=== PATIENT | female | born 1950 | race Caucasian/White ===

== ENCOUNTER 2016-04-25 14:19 | Outpatient (CLI) | payer MEDICARE | END 2016-04-25 14:20 | disposition home or self-care (01) | DX: M16.11 Unilateral primary osteoarthritis, right hip (principal) ==

== ENCOUNTER 2016-04-30 13:39 | Outpatient (CLI) | payer MEDICARE | END 2016-04-30 13:40 | disposition home or self-care (01) | DX: R30.0 Dysuria (principal) ==

== ENCOUNTER 2016-05-29 14:52 | Outpatient (CLI) | payer MEDICARE | END 2016-05-29 14:53 | disposition home or self-care (01) | DX: R07.0 Pain in throat (principal); K11.7 Disturbances of salivary secretion ==

== ENCOUNTER → 2016-10-30 | Outpatient (CLI) | payer MEDICARE ==
[2016-11-02 08:16] LABS: TEST RESULT REPORT (())
[2016-11-28 12:01] LABS: TEST RESULT REPORT (())
== END ==
LOC: LAB.F 08:00
PROVIDERS: ATTEND Physician Assistant
DX: R05 Cough (principal)
CPT/HCPCS: 81599; 87070; 87205

== ENCOUNTER 2016-11-11 11:19 | Outpatient (CLI) | payer MEDICARE ==
--- NOTE | 2016-11-11 13:00 | XRAY Report ---
TWO-VIEW CHEST: 11/11/2016 CLINICAL INDICATION: Cough. FINDINGS: Frontal and lateral views of the chest demonstrate a normal cardiac silhouette. The lungs are hyperinflated, but clear. No effusion or pneumothorax is present. IMPRESSION: HYPERINFLATION. NO EVIDENCE OF ACUTE CARDIOPULMONARY DISEASE. JOB #: [id number] EXT JOB #:[id number]
== END 2016-11-11 11:20 | disposition home or self-care (01) ==
LOC: DI.S 11:19
PROVIDERS: ATTEND Physician Assistant
DX: R91.8 Other nonspecific abnormal finding of lung field (principal)
CPT/HCPCS: 71020

== ENCOUNTER 2016-11-20 11:57 | Outpatient (CLI) | payer MEDICARE | END 2016-11-20 11:58 | disposition home or self-care (01) | LOC: RT.S 11:57 | PROVIDERS: ATTEND Physician Assistant | DX: R07.89 Other chest pain (principal) | CPT/HCPCS: 93005 ==

== ENCOUNTER 2016-12-12 13:58 | Outpatient (CLI) | payer MEDICARE ==
--- NOTE | 2016-12-15 09:18 | XRAY Report ---
THREE-VIEW RIGHT SHOULDER: 12/12/2016 CLINICAL INDICATION: Palpable abnormality acromioclavicular joint, pain. FINDINGS: AP, oblique, scapular Y views of the right shoulder demonstrate mild degenerative changes of the glenohumeral and acromioclavicular joints. There is no evidence of fracture or dislocation. No radiopaque foreign body is seen in the soft tissues. IMPRESSION: MILD OSTEOARTHRITIS. NO EVIDENCE OF FRACTURE. JOB #: [id number] EXT JOB #:[id number]
--- NOTE | 2016-12-15 11:09 | XRAY Report ---
THREE-VIEW LEFT ELBOW: 12/12/2016 CLINICAL INDICATION: Pain. FINDINGS: AP, lateral, oblique views of the left elbow demonstrate no evidence of fracture or disloc ation. The joint spaces are preserved. No effusion is present. No foreign body is seen in the soft tissues. IMPRESSION: NORMAL LEFT ELBOW. JOB #: [id number] EXT JOB #:[id number]
== END 2016-12-12 13:59 | disposition home or self-care (01) ==
LOC: DI.S 13:58
PROVIDERS: ATTEND Physician Assistant
DX: M19.011 Primary osteoarthritis, right shoulder (principal); M25.529 Pain in unspecified elbow

== ENCOUNTER 2017-01-06 09:20 | Outpatient (CLI) | payer MEDICARE ==
[2017-01-06 17:55] LABS: BASOPHILS % (AUTO) 0.4 %; EOSINOPHILS # (AUTO) 0.1 10^3/uL (0.0-0.7); EOSINOPHILS % (AUTO) 1.7 %; HCT - HEMATOCRIT 40.7 % (37.0-47.0); HGB - HEMOGLOBIN 13.6 g/dL (12.0-16.0); LYMPHOCYTES # (AUTO) 1.6 10^3/uL (1.5-3.5); LYMPHOCYTES % (AUTO) 32.7 %; MEAN CORPUSCULAR HEMOGLOBIN 31.8 pg (27.0-31.0); MEAN CORPUSCULAR HGB CONC 33.4 g/dL (32.0-36.0); MEAN CORPUSCULAR VOLUME 95.3 fL (81.0-99.0); MEAN PLATELET VOLUME 9.4 fL (7.9-10.8); MONOCYTES # (AUTO) 0.4 10^3/uL (0.0-1.0); MONOCYTES % (AUTO) 8.4 %; NEUTROPHILS # (AUTO) 2.8 10^3/uL (1.5-6.6); NEUTROPHILS % (AUTO) 56.8 %; NUCLEATED RED BLOOD CELLS AUTO 0.1 /100WBC; RED BLOOD COUNT 4.27 10^6/uL (4.20-5.40); RED CELL DISTRIBUTION WIDTH 13.2 % (12.0-15.0)
[2017-01-06 18:53] LABS: ALBUMIN/GLOBULIN RATIO 1.8 (1.0-2.2); BILIRUBIN,TOTAL 1.2 mg/dL (0.2-1.0); BUN - BLOOD UREA NITROGEN 21 mg/dL (6-20); CALCIUM 9.4 mg/dL (8.5-10.3); CARBON DIOXIDE - CO2 28 mmol/L (21-32); CHLORIDE 104 mmol/L (101-111); CHOL/HDL RATIO 3.8 (<4.4); CHOLESTEROL 298 mg/dL; CREATININE 0.8 mg/dL (0.4-1.0); GFR - MDRD 72 (>89); GLUCOSE 108 mg/dL (70-100); HDL CHOLESTEROL 78 mg/dL; LDL/HDL RATIO 2.6 (<4.4); POTASSIUM 4.3 mmol/L (3.5-5.0); SODIUM 139 mmol/L (135-145); TRIGLYCERIDES 100 mg/dL; VLDL CHOLESTEROL 20 mg/dL
[2017-01-06 18:54] LABS: THYROID STIMULATING HORMONE 2.26 uIU/mL (0.34-5.60)
== END 2017-01-06 09:21 | disposition home or self-care (01) ==
LOC: LAB.F 09:20
PROVIDERS: ATTEND Physician Assistant
DX: Z00.00 Encounter for general adult medical examination without abnormal findings (principal); E78.5 Hyperlipidemia, unspecified
CPT/HCPCS: 36415; 80053; 80061; 84439; 84443; 85025

== ENCOUNTER 2017-03-26 10:03 | Outpatient (CLI) | payer MEDICARE ==
--- NOTE | 2017-03-27 09:35 | DEXA Report ---
DEXA SCAN: 03/26/2017 COMPARISON: DEXA scan 06/09/2014. In accordance with the International Society for Clinical Densitometry (ISCD) guidelines, data from previous exams may be reanalyzed using current recommendations and techniques. This is done to allow a more accurate basis for comparison with the current study. INDICATION: Bone mineral density screening. TECHNIQUE: Standard DEXA views of the left femur and left distal radius. Dual energy x-ray absorptiometry (DXA) was performed on a [employer] system. FINDINGS: Femoral neck bone mineral density measures 0.886 g/cm2, corresponding to a T-score of -1.1 and a Z-score of 0.5. WHO classification is osteopenia. This represents an interval increase in bone density of +2.2%. Distal one-third radius bone mineral density measures 0.720 g/cm2, which corresponds to a T-score -1.8 and Z-score -0.2. WHO classification osteopenia. There is no direct comparison for the distal radius. The data for the hip is as follows: REGION BMD (g/cm/cm) T-SCORE Z-SCORE Neck 0.886 -1.1 0.5 TOTAL 0.928 -0.6 0.7 NOTE: The femoral neck or total proximal femur, whichever is lowest, is used for classification. The data for the forearm is as follows: REGION BMD (g/cm/cm) T-SCORE Z-SCORE 1/3 0.720 -1.8 -0.2 NOTE: The 33% radius of the nondominant forearm is used for classification. IMPRESSION: THE WHO CLASSIFICATION BASED ON THE INTERNATIONAL REFERENCE STANDARD IS OSTEOPENIA. THE FRACTURE RISK IS INCREASED. RECOMMENDATION: Patients with diagnosis of osteoporosis or osteopenia should have regular bone mineral density assessment. For those eligible for Medicare, routine testing is allowed once every 2 years. Testing frequency can be increased for patients who have rapidly progressing disease or for those who are receiving medical therapy to restore bone mass. COMMENT: World Health Organization (WHO) definitions for osteoporosis and osteopenia: NORMAL BMD: T-score at 1.0 or higher, fracture risk is low. OSTEOPENIA BMD: T-score between 1.0 and -2.5, fracture risk is increased. OSTEOPOROSIS BMD: T-score at 2.5 or lower, fracture risk high. National Osteoporosis Foundation recommends: 1. Obtain adequate dietary calcium (at least 1200 mg per day) and vitamin D (400 -800 international units per day). 2. Participate, as appropriate, in regular weightbearing and muscle- strengthening exercise. 3. Avoid tobacco use and reduce alcohol and caffeine intake. 4. For more detailed information see the website at www.NOF.org. MTDD
== END 2017-03-26 10:04 | disposition home or self-care (01) ==
LOC: DI 10:03
PROVIDERS: ATTEND Physician Assistant
DX: M85.89 Other specified disorders of bone density and structure, multiple sites (principal)
CPT/HCPCS: 77080; 77081

== ENCOUNTER 2017-05-25 08:00 | Outpatient (CLI) | payer MEDICARE ==
[2017-05-25 17:38] LABS: BILIRUBIN,URINE NEGATIVE (NEGATIVE); GLUCOSE, URINE (UA) NEGATIVE (NEGATIVE); KETONES,URINE (UA) NEGATIVE (NEGATIVE); LEUKOCYTE ESTERASE, URINE SMALL (NEGATIVE); NITRITE,URINE NEGATIVE (NEGATIVE); OCCULT BLOOD,URINE TRACE-INTA (NEGATIVE); PROTEIN,URINE NEGATIVE (NEGATIVE); UROBILINOGEN,URINE 0.2 (NORMAL) E.U./dL (NORMAL)
[2017-05-25 17:43] LABS: CLARITY,URINE CLEAR (CLEAR)
[2017-05-25 17:44] LABS: BACTERIA,URINE Few /HPF (None Seen); RBC,URINE 0-5 /HPF (0-5); SQUAMOUS EPITHELIAL CELL,UR RARE Squamous (<= Few)
== END 2017-05-25 08:01 | disposition home or self-care (01) ==
LOC: LAB.F 08:00
PROVIDERS: ATTEND Physician Assistant
DX: N39.0 Urinary tract infection, site not specified (principal)
CPT/HCPCS: 81001; 81003; 87086

== ENCOUNTER 2017-07-24 11:05 | Outpatient (CLI) | payer MEDICARE ==
[2017-07-24 18:13] LABS: CALCIUM 9.1 mg/dL (8.5-10.3); CREATININE 0.8 mg/dL (0.4-1.0)
== END 2017-07-24 11:06 | disposition home or self-care (01) ==
LOC: LAB.F 11:05
PROVIDERS: ATTEND Physician Assistant
DX: G25.81 Restless legs syndrome (principal)
CPT/HCPCS: 36415; 80048

== ENCOUNTER 2017-08-13 15:55 | Outpatient (CLI) | payer MEDICARE ==
[2017-08-13 17:45] LABS: BILIRUBIN,URINE NEGATIVE (NEGATIVE); GLUCOSE, URINE (UA) NEGATIVE (NEGATIVE); KETONES,URINE (UA) TRACE mg/dL (NEGATIVE); LEUKOCYTE ESTERASE, URINE NEGATIVE (NEGATIVE); NITRITE,URINE NEGATIVE (NEGATIVE); OCCULT BLOOD,URINE NEGATIVE (NEGATIVE); PH,URINE 5.5 PH (5.0-7.5); PROTEIN,URINE NEGATIVE (NEGATIVE); UROBILINOGEN,URINE 0.2 (NORMAL) E.U./dL (NORMAL)
[2017-08-13 17:48] LABS: CLARITY,URINE CLEAR (CLEAR)
== END 2017-08-13 15:56 | disposition home or self-care (01) ==
LOC: LAB.F 15:55
PROVIDERS: ATTEND Physician Assistant
DX: R30.0 Dysuria (principal)
CPT/HCPCS: 81001; 81003; 87086

== ENCOUNTER 2018-01-04 08:00 | Outpatient (CLI) | payer MEDICARE | END 2018-01-04 08:01 | disposition home or self-care (01) | LOC: LAB.R 08:00 | PROVIDERS: ATTEND Physician Assistant | DX: R19.7 Diarrhea, unspecified (principal) | CPT/HCPCS: 81599; 83630; 87045; 87046 ==

== ENCOUNTER 2018-01-04 09:04 | Outpatient (CLI) | payer MEDICARE ==
[2018-01-04 17:56] LABS: BASOPHILS % (AUTO) 0.8 %; EOSINOPHILS # (AUTO) 0.1 10^3/uL (0.0-0.7); HGB - HEMOGLOBIN 13.9 g/dL (12.0-16.0); LYMPHOCYTES # (AUTO) 1.5 10^3/uL (1.5-3.5); LYMPHOCYTES % (AUTO) 28.1 %; MEAN CORPUSCULAR HEMOGLOBIN 32.7 pg (27.0-31.0); MEAN CORPUSCULAR VOLUME 96.1 fL (81.0-99.0); MEAN PLATELET VOLUME 9.6 fL (7.9-10.8); MONOCYTES # (AUTO) 0.3 10^3/uL (0.0-1.0); MONOCYTES % (AUTO) 6.3 %; NEUTROPHILS # (AUTO) 3.4 10^3/uL (1.5-6.6); NEUTROPHILS % (AUTO) 62.8 %; PLT - PLATELET COUNT 207 10^3/uL (130-450); RED BLOOD COUNT 4.26 10^6/uL (4.20-5.40); RED CELL DISTRIBUTION WIDTH 13.6 % (12.0-15.0); WHITE BLOOD COUNT 5.4 x10^3/uL (4.8-10.8)
[2018-01-04 18:23] LABS: ALBUMIN 4.3 g/dL (3.2-5.5); ALBUMIN/GLOBULIN RATIO 1.7 (1.0-2.2); BILIRUBIN,TOTAL 0.6 mg/dL (0.2-1.0); CALCIUM 9.3 mg/dL (8.5-10.3); CREATININE 0.7 mg/dL (0.4-1.0); TOTAL PROTEIN 6.8 g/dL (6.7-8.2)
== END 2018-01-04 09:05 | disposition home or self-care (01) ==
LOC: LAB.F 09:04
PROVIDERS: ATTEND Physician Assistant
DX: R19.7 Diarrhea, unspecified (principal)
CPT/HCPCS: 36415; 80053; 82150; 83690; 85025

== ENCOUNTER 2018-01-04 09:20 | Outpatient (CLI) | payer MEDICARE | END 2018-01-04 09:21 | disposition home or self-care (01) | LOC: LAB.R 09:20 | PROVIDERS: ATTEND Physician Assistant | DX: R19.7 Diarrhea, unspecified (principal) | CPT/HCPCS: 82270 ==

== ENCOUNTER 2018-01-04 11:51 | Outpatient (CLI) | payer MEDICARE ==
--- NOTE | 2018-01-04 12:58 | XRAY Report ---
Reason: COUGH Procedure Date: 01/04/2018 Accession Number: [id number] / [id number] Procedure: XR - Chest 2 View X-Ray CPT Code: 39481 FULL RESULT: EXAM: CHEST RADIOGRAPHY EXAM DATE: 01/04/2018 12:13 PM. CLINICAL HISTORY: COUGH. COMPARISON: CHEST 2 VIEW PA/LAT 11/11/2016 11:31 AM. TECHNIQUE: 2 views. FINDINGS: Lungs/Pleura: No focal opacities evident. No pleural effusion. No pneumothorax. Normal volumes. Mediastinum: Heart and mediastinal contours are unremarkable. Other: Neural stimulator in place. IMPRESSION: No acute findings 2-view chest radiography. Clear lungs. RADIA
== END 2018-01-04 11:52 | disposition home or self-care (01) ==
LOC: RT 11:51
PROVIDERS: ATTEND Physician Assistant
DX: R05 Cough (principal); R19.7 Diarrhea, unspecified
CPT/HCPCS: 36415; 71046; 80053; 81599; 82150; 82270; 83630; 83690; 85025; 87045; 87046; 87329; 93005

== ENCOUNTER 2018-01-07 11:28 | Emergency (ER) | payer MEDICARE ==
[2018-01-07] MEDS ORDERED: SODIUM CHLORIDE 0.9% 1,000 ML IV ONE (12:04)
[2018-01-07 12:53] LABS: BASOPHILS # (AUTO) 0.1 10^3/uL (0.0-0.1); BASOPHILS % (AUTO) 1.1 %; EOSINOPHILS # (AUTO) 0.1 10^3/uL (0.0-0.7); EOSINOPHILS % (AUTO) 0.8 %; HGB - HEMOGLOBIN 13.7 g/dL (12.0-16.0); LYMPHOCYTES # (AUTO) 1.6 10^3/uL (1.5-3.5); LYMPHOCYTES % (AUTO) 24.9 %; MEAN CORPUSCULAR HEMOGLOBIN 33.1 pg (27.0-31.0); MEAN CORPUSCULAR HGB CONC 34.8 g/dL (32.0-36.0); MEAN PLATELET VOLUME 8.9 fL (7.9-10.8); MONOCYTES # (AUTO) 0.5 10^3/uL (0.0-1.0); NEUTROPHILS # (AUTO) 4.3 10^3/uL (1.5-6.6); NEUTROPHILS % (AUTO) 66.2 %; PLT - PLATELET COUNT 202 10^3/uL (130-450); RED BLOOD COUNT 4.14 10^6/uL (4.20-5.40); WHITE BLOOD COUNT 6.5 x10^3/uL (4.8-10.8)
[2018-01-07 13:06] LABS: ALBUMIN 4.7 g/dL (3.2-5.5); ALBUMIN/GLOBULIN RATIO 1.9 (1.0-2.2); BILIRUBIN,TOTAL 1.1 mg/dL (0.2-1.0); CALCIUM 9.7 mg/dL (8.5-10.3); CREATININE 0.8 mg/dL (0.4-1.0); TOTAL PROTEIN 7.2 g/dL (6.7-8.2)
[2018-01-07 13:07] LABS: MAGNESIUM 1.9 mg/dL (1.7-2.8); PHOSPHORUS 3.3 mg/dL (2.5-4.6)
[2018-01-07] MEDS ORDERED: KETOROLAC 60 MG/2 ML VIAL IVP STA (13:17)
--- NOTE | 2018-01-07 13:19 | ED Physician Documentation ---
History of Present Illness - Stated complaint Stated Complaint: STIFF NECK/DIARRHEA - Chief complaint Chief Complaint: General - History obtained from History obtained from: Patient - History of Present Illness Timing: How many weeks ago (3) Pain level max: 9 Pain level now: 9 Improved by: rest Worsened by: movement - Additonal information Additional information: Patient is a 67-year-old female who presents to the emergency department with diarrhea for the past 3 weeks. Has seen her PCP, had a negative stool testing triggers, negative fecal leukocytes. Has no abdominal pain. No fevers. Was recently treated with azithromycin and doxycycline for bronchitis but the diarrhea was prior to this. She also has developed neck pain over this past several weeks. Worse with movement and better with rest. Has not taken anything for the pain. no recent travel Review of Systems Ten Systems: 10 systems reviewed and negative Constitutional: denies: Fever, Chills Throat: denies: Sore throat Cardiac: denies: Chest pain / pressure Respiratory: denies: Cough GI: reports: Nausea, Diarrhea (7-8x per day). denies: Abdominal Pain, Vomiting, Constipation, Hematemesis, Bloody / black stool : denies: Dysuria, Frequency, Hesitancy Skin: denies: Rash Musculoskeletal: reports: Neck pain. denies: Back pain Neurologic: denies: Focal weakness, Numbness, Confused, Altered mental status, Headache, Head injury, LOC PD PAST MEDICAL HISTORY - Past Medical History Past Medical History: Yes Musculoskeletal: Osteoarthritis, Chronic back pain, Other - Present Medications Home Medications: Ambulatory Orders Medication Instructions Recorded Confirmed Carisoprodol/Aspirin 1 tab PO Q8HR 11/23/13 08/13/15 [Carisoprodl-Aspirin 200-325 mg] Cyclobenzaprine [Flexeril] 10 mg PO DAILY PRN 11/23/13 08/13/15 Dextroamphetamine/Amphetamine 30 mg ORAL DAILY 11/23/13 08/13/15 [Dextroamp-Amphet ER 30 mg Cap] Hydrocodone/Acetaminophen [Vicodin 1 tab ORAL TID 11/23/13 08/13/15 5-300 mg Tablet] Sumatriptan Inj [Imitrex Inj] 100 mg ORAL BID PRN 11/23/13 08/13/15 Valacyclovir HCl [Valacyclovir] 500 mg ORAL DAILY 11/23/13 08/13/15 traMADol [Ultram] 50 mg ORAL BID PRN 11/23/13 08/13/15 traZODone [Desyrel] 50 mg OP QPM 11/23/13 08/13/15 Cyanocobalamin (Vitamin B-12) 1,000 mcg PO DAILY 03/24/14 08/13/15 [B-12] Mirtazapine 15 mg PO BIDAC 03/24/14 08/13/15 Multivits Min/Iron/FA/Herb#186 1 tab PO DAILY 03/24/14 08/13/15 [Hair, Skin & Nails Caplet] Papaya [Papaya Enzyme] 1 each PO DAILY 03/24/14 08/13/15 Vitamin B Complex 1 each PO DAILY 03/24/14 08/13/15 Carisoprodol [Soma] 1 mg ORAL DAILY 08/13/15 08/13/15 Methocarbamol [Robaxin] 500 mg PO Q6H PRN #20 tablet 01/07/18 - Allergies Allergies/Adverse Reactions: Allergies Allergy/AdvReac Type Severity Reaction Status Date / Time lovastatin Allergy Severe Palpitations/Dry Verified 01/07/18 11:36 mouth/ Confusion Sulfa (Sulfonamide Allergy Intermediate Rash/Hives Verified 01/07/18 11:36 Antibiotics) lamictal AdvReac Severe Rapid Uncoded 01/07/18 11:36 heart rate Percocet AdvReac Severe Migraines Uncoded 01/07/18 11:36 - Living Situation Living Situation: reports: With family Living Arrangement: reports: At home - Social History Does the pt have substance abuse?: No - Family History Family history: reports: Non contributory PD ED PE NORMAL - Vitals Vital signs reviewed: Yes - General General: Alert and oriented X 3, No acute distress - HEENT HEENT: PERRL, Moist mucous membranes - Neck Neck: No bony TTP, Other (paracervical spasm B) - Cardiac Cardiac: RRR, Strong equal pulses - Respiratory Respiratory: No respiratory distress, Clear bilaterally - Abdomen Abdomen: Soft, Non tender, Non distended - Derm Derm: Warm and dry - Extremities Extremities: No edema - Neuro Neuro: Alert and oriented X 3 - Psych Psych: Normal mood, Normal affect Results - Vitals Vitals: Vital Signs - 24 hr 01/07/18 01/07/18 11:33 13:15 Temperature 36.0 C L Heart Rate 74 76 Respiratory 16 16 Rate Blood Pressure 133/82 H 141/90 H O2 Saturation 97 Oxygen O2 Source Room air - Labs Labs: Laboratory Tests 01/07/18 01/07/18 01/07/18 12:40 12:40 12:40 WBC 6.5 RBC 4.14 L Hgb 13.7 Hct 39.3 MCV 95.0 MCH 33.1 H MCHC 34.8 RDW 13.0 Plt Count 202 MPV 8.9 Neut # (Auto) 4.3 Lymph # (Auto) 1.6 [place] # (Auto) 0.5 Eos # (Auto) 0.1 Baso # (Auto) 0.1 Absolute Nucleated RBC 0.00 Nucleated RBC % 0.0 Sodium 138 Potassium 3.6 Chloride 100 L Carbon Dioxide 28 Anion Gap 10.0 BUN 17 Creatinine 0.8 Estimated GFR (MDRD) 71 L Glucose 115 H Calcium 9.7 Phosphorus 3.3 Magnesium 1.9 Total Bilirubin 1.1 H AST 26 ALT 23 Alkaline Phosphatase 49 Total Protein 7.2 Albumin 4.7 Globulin 2.5 Albumin/Globulin Ratio 1.9 Lipase 29 Urine Color Urine Clarity Urine pH Ur Specific Archbold Urine Protein Urine Glucose (UA) Urine Ketones Urine Occult Blood Urine Nitrite Urine Bilirubin Urine Urobilinogen Ur Leukocyte Esterase Ur Microscopic Review Urine Culture Comments 01/07/18 14:07 WBC RBC Hgb Hct MCV MCH MCHC RDW Plt Count MPV Neut # (Auto) Lymph # (Auto) [place] # (Auto) Eos # (Auto) Baso # (Auto) Absolute Nucleated RBC Nucleated RBC % Sodium Potassium Chloride Carbon Dioxide Anion Gap BUN Creatinine Estimated GFR (MDRD) Glucose Calcium Phosphorus Magnesium Total Bilirubin AST ALT Alkaline Phosphatase Total Protein Albumin Globulin Albumin/Globulin Ratio Lipase Urine Color YELLOW Urine Clarity CLEAR Urine pH 6.5 Ur Specific [place]bold 1.015 Urine Protein NEGATIVE Urine Glucose (UA) NEGATIVE Urine Ketones TRACE Urine Occult Blood NEGATIVE Urine Nitrite NEGATIVE Urine Bilirubin NEGATIVE Urine Urobilinogen 0.2 (NORMAL) Ur Leukocyte Esterase NEGATIVE Ur Microscopic Review NOT INDICATED Urine Culture Comments NOT INDICATED PD MEDICAL DECISION MAKING - ED course Complexity details: reviewed results, re-evaluated patient, considered differential, d/w patient ED course: Patient is a 67-year-old female who presents with diarrhea for the past 3 weeks. Has had a full workup for this with her PCP with negative blood work, stool cultures and stool testing. Unclear etiology of this. She feels better after IV fluids. Will place on muscle relaxants for her neck. She has Vicodin for pain at home. No evidence of meningitis, encephalitis. No fevers. We will continue supportive care and follow-up with her doctor. Patient counseled regarding signs and symptoms for which I believe and urgent re-evaluation would be necessary. Patient with good understanding of and agreement to plan and is comfortable going home at this time This document was made in part using voice recognition software. While efforts are made to proofread this document, sound alike and grammatical errors may occur. Departure - Departure Disposition: Home, Self Care Clinical Impression: Diarrhea Qualifiers: Diarrhea type: unspecified type Qualified Code(s): R19.7 - Diarrhea, unspecified Neck muscle strain Qualifiers: Encounter type: initial encounter Qualified Code(s): S16.1XXA - Strain of muscle, fascia and tendon at neck level, initial encounter Condition: Good Instructions: ED Diet Vomiting Diarrhea, ED Neck Pain No Trauma Follow-Up: Nicky Best PA-C [Primary Care Provider] - Within 1 week Prescriptions: Methocarbamol [Robaxin] 500 mg PO Q6H PRN #20 tablet PRN Reason: neck spasm Comments: Your laboratory testing does not show any acute abnormalities. Your neck muscle spasm appears to be nontraumatic. Not related to meningitis or encephalitis. You do not have any evidence of hemorrhaging in your brain or neck. Follow-up with your doctor for further care. Do not drive or operate heavy machinery while taking the Robaxin Discharge Date/Time: 01/07/18 14:40
[2018-01-07 14:10] VITALS: BP 141/90
[2018-01-07 14:12] LABS: BILIRUBIN,URINE NEGATIVE (NEGATIVE); GLUCOSE, URINE (UA) NEGATIVE (NEGATIVE); KETONES,URINE (UA) TRACE mg/dL (NEGATIVE); LEUKOCYTE ESTERASE, URINE NEGATIVE (NEGATIVE); NITRITE,URINE NEGATIVE (NEGATIVE); OCCULT BLOOD,URINE NEGATIVE (NEGATIVE); PH,URINE 6.5 PH (5.0-7.5); PROTEIN,URINE NEGATIVE (NEGATIVE); UROBILINOGEN,URINE 0.2 (NORMAL) E.U./dL (NORMAL)
[2018-01-07 14:14] LABS: CLARITY,URINE CLEAR (CLEAR)
== END 2018-01-07 14:40 | disposition home or self-care (01) ==
LOC: ED 11:28
DX: R19.7 Diarrhea, unspecified (principal); S16.1XXA Strain of muscle, fascia and tendon at neck level, initial encounter; X58.XXXA Exposure to other specified factors, initial encounter; G89.29 Other chronic pain
CPT/HCPCS: 36415; 80053; 81001; 81003; 83690; 83735; 84100; 85025; 87086; 96374; 99283

== ENCOUNTER 2018-03-29 12:03 | Outpatient (CLI) | payer MEDICARE ==
[2018-03-29 19:03] LABS: BASOPHILS % (AUTO) 0.7 %; EOSINOPHILS # (AUTO) 0.1 10^3/uL (0.0-0.7); EOSINOPHILS % (AUTO) 1.1 %; HGB - HEMOGLOBIN 13.4 g/dL (12.0-16.0); LYMPHOCYTES # (AUTO) 1.5 10^3/uL (1.5-3.5); MEAN CORPUSCULAR HEMOGLOBIN 33.3 pg (27.0-31.0); MEAN CORPUSCULAR HGB CONC 33.9 g/dL (32.0-36.0); MEAN CORPUSCULAR VOLUME 98.3 fL (81.0-99.0); MEAN PLATELET VOLUME 9.5 fL (7.9-10.8); MONOCYTES # (AUTO) 0.4 10^3/uL (0.0-1.0); MONOCYTES % (AUTO) 7.8 %; NEUTROPHILS # (AUTO) 2.7 10^3/uL (1.5-6.6); NEUTROPHILS % (AUTO) 58.4 %; PLT - PLATELET COUNT 212 10^3/uL (130-450); RED BLOOD COUNT 4.03 10^6/uL (4.20-5.40); RED CELL DISTRIBUTION WIDTH 13.4 % (12.0-15.0); WHITE BLOOD COUNT 4.7 x10^3/uL (4.8-10.8)
[2018-03-29 19:04] LABS: ALBUMIN 4.4 g/dL (3.2-5.5); BILIRUBIN,TOTAL 0.5 mg/dL (0.2-1.0); CALCIUM 9.1 mg/dL (8.5-10.3); CREATININE 0.7 mg/dL (0.4-1.0); TOTAL PROTEIN 6.6 g/dL (6.7-8.2)
[2018-03-29 19:14] LABS: THYROID STIMULATING HORMONE 1.45 uIU/mL (0.34-5.60)
[2018-03-31 15:06] LABS: ANA SCREEN NEGATIVE (NEGATIVE)
== END 2018-03-29 12:04 | disposition home or self-care (01) ==
LOC: LAB.F 12:03
PROVIDERS: ATTEND Dermatology
DX: L65.9 Nonscarring hair loss, unspecified (principal)
CPT/HCPCS: 36415; 80053; 81599; 82627; 82728; 84403; 84443; 85025; 86038

== ENCOUNTER 2018-05-13 10:39 | Outpatient (CLI) | payer MEDICARE ==
--- NOTE | 2018-05-13 16:12 | XRAY Report ---
Reason: PAIN IN LEFT SHOULDER Procedure Date: 05/13/2018 Accession Number: [id number] / [id number] Procedure: XR - Shoulder 2 View LT CPT Code: FULL RESULT: EXAM: LEFT SHOULDER RADIOGRAPHY EXAM DATE: 05/13/2018 11:12 AM. CLINICAL HISTORY: Pain in left shoulder. COMPARISON: Arthrogram 07/23/2015 2:05 PM. Arthrogram shoulder left 07/23/2015 2:00 PM. TECHNIQUE: 2 views. FINDINGS: Bones: Mild changes about the inferior glenoid and lateral humeral head suggest prior injury. No fractures detected. Joints: The glenohumeral and acromioclavicular joints are normal. Soft tissues: The visualized hemithorax is unremarkable. No soft tissue swelling. IMPRESSION: Mild post-traumatic findings of lateral humeral head and inferior glenoid. Correlate to history of prior dislocation. RADIA
== END 2018-05-13 10:40 | disposition home or self-care (01) ==
LOC: DI 10:39
PROVIDERS: ATTEND Registered Nurse
DX: M25.512 Pain in left shoulder (principal)

== ENCOUNTER 2018-09-09 06:57 | Day surgery (SDC) | payer MEDICARE ==
[2018-09-09] MEDS ORDERED: LIDO GARGLE 30 ML BOTTLE ONE (07:14)
[2018-09-09] MEDS ORDERED: MIDAZOLAM 2 MG/2 ML VIAL IVP ONE (08:22)
[2018-09-09] MEDS ORDERED: fentaNYL 100 MCG/2 ML VIAL IVP ONE (08:22)
[2018-09-09] MEDS ORDERED: LACTATED RINGERS 1,000 ML IV ONE ×3 (08:22→08:48)
[2018-09-09] MEDS ORDERED: LIDO GARGLE 30 ML BOTTLE TOP ONE (08:30)
[2018-09-09 09:11] VITALS: BP 113/73
== END 2018-09-09 06:58 | disposition home or self-care (01) ==
LOC: SDS 06:57
PROVIDERS: ATTEND Surgery
PROC: 0DB78ZX Excision of Stomach, Pylorus, Via Natural or Artificial Opening Endoscopic, Diagnostic (ICD-10-PCS; 2018-09-09)
PROC: 0DB58ZX Excision of Esophagus, Via Natural or Artificial Opening Endoscopic, Diagnostic (ICD-10-PCS; principal; 2018-09-09 08:15)
DX: K22.70 Barrett's esophagus without dysplasia (principal); K21.0 Gastro-esophageal reflux disease with esophagitis; K29.80 Duodenitis without bleeding; K29.70 Gastritis, unspecified, without bleeding; Q38.6 Other congenital malformations of mouth; Z87.891 Personal history of nicotine dependence; Z86.2 Personal history of diseases of the blood and blood-forming organs and certain disorders involving the immune mechanism
CPT/HCPCS: 43239; 87081; A9270; J7120

== ENCOUNTER 2019-01-18 13:57 | Outpatient (CLI) | payer MEDICARE ==
--- NOTE | 2019-01-18 15:19 | Ultrasound Report ---
Reason: POSTMENOPAUSAL VAGINAL BLEEDING Procedure Date: 01/18/2019 Accession Number: [id number] / [id number] Procedure: US - Pelvic w/Transvaginal CPT Code: FULL RESULT: EXAM: PELVIC ULTRASOUND EXAM DATE: 01/18/2019 03:10 PM. CLINICAL HISTORY: POSTMENOPAUSAL VAGINAL BLEEDING. COMPARISON: PELVIC W/TRANSVAGINAL 01/18/2019 2:28 PM. TECHNIQUE: Realtime transabdominal pelvic scan performed to identify the uterus and adnexa and as an overview of other pelvic structures, followed by transvaginal scan to provide greater detail of the uterus and adnexa, with static image documentation. FINDINGS: Uterus: 6.5 x 2.8 x 4.2 cm, volume 40 cc. Anteverted position. Normal overall size and echotexture. Masses: 1. Fundal fibroid measuring 2.4 x 2.1 x 2.3 cm. Endometrium: 2.0 mm. Nonspecific small volume endometrial fluid. Cervix: Nabothian cyst is present. Ovaries are not seen bilaterally, may be obscured by overlying structures. No adnexal mass is seen. Free Fluid: None. Other: None. IMPRESSION: 1. Uterine fibroid. 2. Atrophic endometrium. 3. Nonspecific small volume endometrial fluid. 4. Ovaries are not seen, may be obscured. RADIA
== END 2019-01-18 13:58 | disposition home or self-care (01) ==
LOC: DI 13:57
PROVIDERS: ATTEND Physician Assistant Medical
DX: D25.9 Leiomyoma of uterus, unspecified (principal); N88.8 Other specified noninflammatory disorders of cervix uteri
CPT/HCPCS: 76830; 76856

== ENCOUNTER 2019-02-13 13:20 | Emergency (ER) | payer MEDICARE ==
[2019-02-13 13:29] VITALS: BP 153/74
--- NOTE | 2019-02-13 14:28 | XRAY Report ---
Reason: L knee pain/swelling. Procedure Date: 02/13/2019 Accession Number: [id number] / [id number] Procedure: XR - Knee 3 View LT CPT Code: Final Report FULL RESULT: EXAM: LEFT KNEE RADIOGRAPHY EXAM DATE: 02/13/2019 01:55 PM. CLINICAL HISTORY: L knee pain/swelling. COMPARISON: None. TECHNIQUE: 3 views. FINDINGS: Bones: No acute fracture or focal osseous destruction. Prior ACL reconstruction change noted. Hardware appears to be appropriate. Joints: No dislocation. Mild tricompartmental degenerative changes. Suprapatellar density. Soft Tissues: Mild apparent soft tissue swelling. IMPRESSION: 1. No acute fracture or dislocation identified. 2. Suprapatellar density, suggesting the presence of a knee joint effusion. 3. Mild tricompartmental degenerative changes. 4. Prior ACL surgical reconstruction changes noted. RADIA
[2019-02-13] MEDS ORDERED: HYDROcod/ACETAM 5/325 MG TABLET PO STA (14:30)
--- NOTE | 2019-02-13 14:34 | ED Physician Documentation ---
PD HPI LOWER EXT INJURY - Stated complaint Stated Complaint: L KNEE INJURY - Chief complaint Chief Complaint: Ext Problem - History obtained from History obtained from: Patient - History of Present Illness PD HPI LOW EXT INJURY LOCATION: Left (She has a remote history of ACL replacements. Yesterday morning she was walking on it and felt a pull in her left knee and has had persistent pain there ever since which is worse with walking. There was no fall. She tried ibuprofen with incomplete relief.) Review of Systems Constitutional: reports: Reviewed and negative Throat: reports: Reviewed and negative Cardiac: reports: Reviewed and negative PD PAST MEDICAL HISTORY - Past Medical History Cardiovascular: High cholesterol, Arrhythmia GI: GERD HEENT: Chronic vision loss Psych: ADD/ADHD, Claustrophobia Musculoskeletal: Osteoarthritis, Chronic back pain, Other Derm: Other - Past Surgical History Past Surgical History: Yes Ortho: ACL reconstruction, Arthroscopic surgery, Spine surgery /[employer]: Tubal ligation HEENT: Tonsil/Adenoidectomy - Present Medications Home Medications: Ambulatory Orders Medication Instructions Recorded Confirmed Carisoprodol/Aspirin 1 tab PO Q8HR 11/23/13 08/13/15 [Carisoprodl-Aspirin 200-325 mg] Cyclobenzaprine [Flexeril] 10 mg PO DAILY PRN 11/23/13 09/09/18 Sumatriptan Inj [Imitrex Inj] 100 mg ORAL BID PRN 11/23/13 09/09/18 Valacyclovir HCl [Valacyclovir] 500 mg ORAL DAILY 11/23/13 09/09/18 traZODone [Desyrel] 50 mg OP QPM 11/23/13 09/09/18 Cyanocobalamin (Vitamin B-12) 1,000 mcg PO DAILY 03/24/14 09/09/18 [B-12] Multivits Min/Iron/FA/Herb#186 1 tab PO DAILY 03/24/14 09/09/18 [Hair, Skin & Nails Caplet] Vitamin B Complex 1 each PO DAILY 03/24/14 09/09/18 Carisoprodol [Soma] 1 mg ORAL DAILY 08/13/15 08/13/15 Biosil 09/09/18 Dextroamphetamine/Amphetamine 30 mg PO DAILY 09/09/18 09/09/18 [Adderall 30 mg Tablet] Vit A/Vit C/Vit E/Zinc/Copper 1 each PO DAILY 09/09/18 09/09/18 [Preservision Areds Softgel] Hydrocodone/Acetaminophen 1 - 2 each PO Q6H PRN #14 tablet 02/13/19 [Hydrocodon-Acetaminophen 5-325] Meloxicam [Mobic] 7.5 mg PO BID PRN #20 tablet 02/13/19 - Allergies Allergies/Adverse Reactions: Allergies Allergy/AdvReac Type Severity Reaction Status Date / Time lovastatin Allergy Severe Palpitations/Dry Verified 01/07/18 11:36 mouth/ Confusion Sulfa (Sulfonamide Allergy Intermediate Rash/Hives Verified 01/07/18 11:36 Antibiotics) albuterol Allergy Unknown Verified 09/09/18 07:40 ciprofloxacin [From Cipro] Allergy Rash Verified 09/09/18 07:40 levofloxacin [From Levaquin] Allergy Rash Verified 09/09/18 07:40 prednisone Allergy Unknown Verified 09/09/18 07:40 acetaminophen [From Percocet] AdvReac Headache Verified 09/09/18 07:40 bupropion [From Wellbutrin] AdvReac Anxiety Verified 09/09/18 07:40 hydromorphone AdvReac Headache Verified 09/09/18 07:40 nitrofurantoin AdvReac Nausea Verified 09/09/18 07:40 oxycodone [From Percocet] AdvReac Headache Verified 09/09/18 07:40 lamictal AdvReac Severe Rapid Uncoded 01/07/18 11:36 heart rate Percocet AdvReac Severe Migraines Uncoded 01/07/18 11:36 - Social History Does the pt smoke?: No Smoking Status: Never smoker Does the pt drink ETOH?: No Does the pt have substance abuse?: No PD ED PE NORMAL - Vitals Vital signs reviewed: Yes - General General: Alert and oriented X 3, No acute distress - Extremities Extremities: Other (Left knee has a moderate effusion, the right knee has an effusion as well. There is mild medial and lateral joint line tenderness of the left knee. ACL, PCL, LCL, MCL testing is intact and painless. Negative grind testing.) - Neuro Neuro: Alert and oriented X 3, Normal speech Results - Vitals Vitals: Vital Signs - 24 hr 02/13/19 13:27 Temperature 36.9 C Heart Rate 85 Respiratory 18 Rate Blood Pressure 153/74 H O2 Saturation 100 Oxygen O2 Source Room air - Rads (name of study) L knee xr Radiology: EMP read contemporaneously (There is an effusion, mild tricompartmental degenerative changes and prior ACL surgery; No fracture) PD MEDICAL DECISION MAKING - ED course ED course: 68-year-old woman with history of ACL replacement presents after a knee twisting. Ligamentous and testing is intact. Negative grind testing. She does have a small effusion. She is treated with hydrocodone and anti-inflammatories pending orthopedic follow-up. Departure - Departure Disposition: 01 Home, Self Care Clinical Impression: Left knee sprain Qualifiers: Encounter type: initial encounter Involved ligament of knee: unspecified ligament Qualified Code(s): S83.92XA - Sprain of unspecified site of left knee, initial encounter Condition: Good Record reviewed to determine appropriate education?: Yes Instructions: ED Sprain Knee Follow-Up: Bhupendra Courtney MD [Provider Admit Priv/Credential] - Prescriptions: Hydrocodone/Acetaminophen [Hydrocodon-Acetaminophen 5-325] 1 - 2 each PO Q6H PRN #14 tablet PRN Reason: pain Meloxicam [Mobic] 7.5 mg PO BID PRN #20 tablet PRN Reason: Pain Comments: As discussed, the examination today shows some fluid on the knee joint and your ligaments seem okay. Right now I think is okay to take the hydrocodone and the anti-inflammatory. Its okay to walk and continue with physical therapy. Follow-up with the orthopedic surgeon next week if not better. Do not drink or drive while taking narcotic pain medication. Note that many narcotic pain relievers also contain Tylenol/acetaminophen. Please ensure that your total dose of acetaminophen from all sources does not exceed 3 g (3000 mg) per day. You may get constipated while on this medication. Take a stool softener such as Colace twice a day while you are on it. Also add an [id number] laxative such as senna or MiraLAX on any day that you do not have a bowel movement. If you received a narcotic pain medication or sedative while in the emergency department, do not drive for the next 24 hours. Your blood pressure was elevated today on check into the emergency department. This does not mean that you have hypertension, it is a common phenomenon to come to the emergency department and have elevated blood pressure. I recommend that you see your primary care physician within the week to have it rechecked when you are feeling better. Discharge Date/Time: 02/13/19 14:39
== END 2019-02-13 14:39 | disposition home or self-care (01) ==
LOC: ED 13:20
DX: S83.92XA Sprain of unspecified site of left knee, initial encounter (principal); X50.1XXA Overexertion from prolonged static or awkward postures, initial encounter; Y93.K1 Activity, walking an animal; R03.0 Elevated blood-pressure reading, without diagnosis of hypertension
CPT/HCPCS: 73562; 99283; A9270

== ENCOUNTER 2019-04-11 07:00 | Outpatient (CLI) | payer MEDICARE | END 2019-04-11 23:59 | disposition home or self-care (01) | LOC: LAB.R 07:00 | PROVIDERS: ATTEND Physician Assistant Medical | DX: N39.0 Urinary tract infection, site not specified (principal) | CPT/HCPCS: 87086 ==

== ENCOUNTER 2019-04-19 12:55 | Outpatient (CLI) | payer MEDICARE ==
[2019-04-19 17:20] LABS: BASOPHILS % (AUTO) 0.7 %; EOSINOPHILS # (AUTO) 0.1 10^3/uL (0.0-0.7); EOSINOPHILS % (AUTO) 1.4 %; HGB - HEMOGLOBIN 13.2 g/dL (12.0-16.0); LYMPHOCYTES # (AUTO) 1.5 10^3/uL (1.5-3.5); LYMPHOCYTES % (AUTO) 26.1 %; MEAN CORPUSCULAR HEMOGLOBIN 31.4 pg (27.0-31.0); MEAN CORPUSCULAR HGB CONC 32.8 g/dL (32.0-36.0); MEAN CORPUSCULAR VOLUME 95.5 fL (81.0-99.0); MEAN PLATELET VOLUME 11.6 fL (7.9-10.8); MONOCYTES # (AUTO) 0.5 10^3/uL (0.0-1.0); MONOCYTES % (AUTO) 8.8 %; NEUTROPHILS # (AUTO) 3.5 10^3/uL (1.5-6.6); NEUTROPHILS % (AUTO) 62.8 %; PLT - PLATELET COUNT 193 10^3/uL (130-450); RED BLOOD COUNT 4.21 10^6/uL (4.20-5.40); RED CELL DISTRIBUTION WIDTH 12.9 % (12.0-15.0); WHITE BLOOD COUNT 5.6 x10^3/uL (4.8-10.8)
[2019-04-19 17:36] LABS: ALBUMIN 4.8 g/dL (3.2-5.5); CALCIUM 9.1 mg/dL (8.5-10.3); CREATININE 0.7 mg/dL (0.4-1.0); TOTAL PROTEIN 7.2 g/dL (6.7-8.2)
== END 2019-04-19 12:56 | disposition home or self-care (01) ==
LOC: LAB.S 12:55
PROVIDERS: ATTEND Physician Assistant Medical
DX: Z51.81 Encounter for therapeutic drug level monitoring (principal); Z79.899 Other long term (current) drug therapy; R53.83 Other fatigue; L65.9 Nonscarring hair loss, unspecified; R00.2 Palpitations; Z83.49 Family history of other endocrine, nutritional and metabolic diseases
CPT/HCPCS: 36415; 80053; 84443; 85025

== ENCOUNTER 2019-06-03 08:00 | Outpatient (CLI) | payer MEDICARE | END 2019-06-03 23:59 | disposition home or self-care (01) | LOC: LAB.R 08:00 | PROVIDERS: ATTEND Family Medicine | DX: J11.1 Influenza due to unidentified influenza virus with other respiratory manifestations (principal) | CPT/HCPCS: 81599; U0002 ==

== ENCOUNTER 2019-11-24 11:27 | Day surgery (SDC) | payer MEDICARE ==
[2019-11-24] MEDS ORDERED: LACTATED RINGERS 1,000 ML IV ONE ×2 (12:03→13:02)
[2019-11-24] MEDS ORDERED: LIDO GARGLE 30 ML BOTTLE PO ONE ×2 (12:29→12:43)
[2019-11-24] MEDS ORDERED: BENZOCAINE/TETRACAINE/BUTAMBEN 20 GM TOP ONE ×2 (12:30→12:43)
[2019-11-24] MEDS ORDERED: MIDAZOLAM 2 MG/2 ML VIAL IVP ONE (12:37)
[2019-11-24] MEDS ORDERED: fentaNYL 250 MCG/5 ML VIAL IVP ONE (12:37)
[2019-11-24] MEDS ORDERED: LIDO GARGLE 30 ML BOTTLE ONE (12:48)
[2019-11-24 13:24] VITALS: BP 103/68
== END 2019-11-24 11:28 | disposition home or self-care (01) ==
LOC: SDS 11:27
PROVIDERS: ATTEND Surgery
PROC: 0DB48ZX Excision of Esophagogastric Junction, Via Natural or Artificial Opening Endoscopic, Diagnostic (ICD-10-PCS; principal; 2019-11-24 12:30)
DX: K22.70 Barrett's esophagus without dysplasia (principal); K29.50 Unspecified chronic gastritis without bleeding; K21.9 Gastro-esophageal reflux disease without esophagitis; D64.9 Anemia, unspecified; I49.9 Cardiac arrhythmia, unspecified; G58.8 Other specified mononeuropathies; E78.5 Hyperlipidemia, unspecified; F40.240 Claustrophobia; K13.79 Other lesions of oral mucosa; F98.8 Other specified behavioral and emotional disorders with onset usually occurring in childhood and adolescence; F32.9 Major depressive disorder, single episode, unspecified; F41.9 Anxiety disorder, unspecified; Z87.891 Personal history of nicotine dependence
CPT/HCPCS: 43239; A9270; J3010; J7120

== ENCOUNTER 2020-03-12 09:00 | Outpatient (CLI) | payer MEDICARE | END 2020-03-12 23:59 | disposition home or self-care (01) | LOC: LAB.R 09:00 | PROVIDERS: ATTEND Physician Assistant | DX: R30.0 Dysuria (principal) | CPT/HCPCS: 87077; 87086 ==

== ENCOUNTER 2020-04-05 13:45 | Outpatient (CLI) | payer MEDICARE ==
--- NOTE | 2020-04-05 16:35 | XRAY Report ---
PROCEDURE: Knee 3 View RT INDICATIONS: PAIN IN RT KNEE, LOW BACK PAIN TECHNIQUE: 3 views of the right knee(s) were acquired. COMPARISON: None. FINDINGS: Bones: No fractures or dislocations. No suspicious bony lesions. ACL surgical repair changes are no christiano. Moderate medial compartment narrowing is present as well as patellofemoral. Patellar osteophyte is present. Soft tissues: No joint effusion. No suspicious soft tissue calcifications. IMPRESSION: Postsurgical changes as well as degenerative medial and patellofemoral compartment arthr itic narrowing. Reviewed by: Krystyna Robin MD on 04/05/2020 4:34 PM PST Approved by: Krystyna Robin MD on 04/05/2020 4:34 PM PST Station ID: [id number]
--- NOTE | 2020-04-05 16:38 | XRAY Report ---
PROCEDURE: Lumbar Spine 2 View INDICATIONS: LOW BACK PAIN TECHNIQUE: 2 views of the lumbar spine were acquired. COMPARISON: X-ray lumbar spine 08/07/2015 FINDINGS: Bones: 5 [id number] vertebrae are present. There is posterior fusion at L4-5. Hardware appears intact without evidence of hardware fracture or periprosthetic loosening lucency. Stimulator is pres ent with wire overlying the posterior aspect of L3-4. There is lumbarization of the first sacral vert ebral body. Moderate to severe foraminal narrowing is noted L3-4, L4-5 and severe L5-S1. No vertebra l body compression fractures. No suspicious bony lesions. Soft tissues: Overlying bowel gas pattern is normal. No suspicious soft tissue calcifications. IMPRESSION: Degenerative postsurgical changes as above. It is noted foraminal narrowing appears slig htly more prominent when compared to prior exam. Reviewed by: Krystyna Robin MD on 04/05/2020 4:36 PM PST Approved by: Krystyna Robin MD on 04/05/2020 4:36 PM PST Station ID: [id number]
== END 2020-04-05 13:46 | disposition home or self-care (01) ==
LOC: DI 13:45
PROVIDERS: ATTEND Physician Assistant
DX: M17.11 Unilateral primary osteoarthritis, right knee (principal); M48.061 Spinal stenosis, lumbar region without neurogenic claudication; Z98.1 Arthrodesis status

== ENCOUNTER 2020-04-06 13:33 | Outpatient (CLI) | payer MEDICARE ==
--- NOTE | 2020-04-06 15:56 | Ultrasound Report ---
PROCEDURE: Duplex Ext Veins Right INDICATIONS: PAIN IN RT KNEE TECHNIQUE: Real-time imaging, as well as color and pulse Doppler interrogation, were performed of the lower extr emity deep veins from the inguinal ligament to the popliteal fossa. COMPARISON: None. FINDINGS: The deep veins are normally compressible, and free of intraluminal thrombus. Color and pu lse Doppler demonstrate normal phasic intraluminal flow. There is normal augmentation response to di stal compression maneuver. Small medial right knee fluid collection measuring 12 x 5 x 10 mm, which i s nonspecific. IMPRESSION: No evidence of deep venous thrombosis. Nonspecific small medial right knee fluid collection. Please correlate clinically Reviewed by: Leif Bailey MD on 04/06/2020 3:54 PM PST Approved by: Leif Bailey MD on 04/06/2020 3:54 PM PST Station ID: [id number]
== END 2020-04-06 13:34 | disposition home or self-care (01) ==
LOC: DI 13:33
PROVIDERS: ATTEND Physician Assistant
DX: M25.561 Pain in right knee (principal); M54.5 Low back pain

== ENCOUNTER 2021-04-10 10:33 | Outpatient (CLI) | payer MEDICARE ==
--- NOTE | 2021-04-10 15:07 | DEXA Report ---
PROCEDURE: Dexa Spine and/or Hip INDICATIONS: POST MENOPAUSAL TECHNIQUE: Dual energy x-ray absorptiometry (DXA) was performed on a [employer] System. Regions measur ed are the AP Spine, femoral neck, and if needed forearm. COMPARISON: 03/26/2017 FINDINGS: Left Hip: Bone Mineral Density 0.925 g/cm/cm,T score -0.7, normal bone density Left Femoral Neck: Bone Mineral Density 0.882 g/cm/cm, T score -1.1, osteopenia Left forearm (distal radius): The left forearm was used for measurement secondary to lumbar spinal garza rdware and pain stimulator device. Bone Mineral Density 0.562 g/cm/cm, T score -1.9, osteopenia (T score greater or equal to -1.0: NORMAL) (T score from -1.1 to -2.4: OSTEOPENIA) (T score less than or equal to -2.5 to: OSTEOPOROSIS) Impression: OSTEOPENIA. Patient is at increased risk for fracture Patients with diagnosis of osteoporosis or osteopenia should have regular bone mineral density assess ment. For those eligible for Medicare, routine testing is allowed once every 2 years. Testing frequ ency can be increased for patients who have rapidly progressing disease or for those who are receivin g medical therapy to restore bone mass. Reviewed by: Marco Antonio Vazquez MD on 04/10/2021 3:06 PM PST Approved by: Marco Antonio Vazquez MD on 04/10/2021 3:06 PM PST Station ID: [id number]
== END 2021-04-10 10:34 | disposition home or self-care (01) ==
LOC: DI 10:33
PROVIDERS: ATTEND Physician Assistant
DX: M85.89 Other specified disorders of bone density and structure, multiple sites (principal); Z78.0 Asymptomatic menopausal state

== ENCOUNTER 2022-06-11 12:50 | Outpatient (CLI) | payer MEDICARE ==
[~2022-06-11 12:50] MED LIST: GADOBUTROL 7.5 MMOL/7.5 ML VIAL ONE
[2022-06-11 13:17] LABS: CREATININE 0.8 mg/dL (0.4-1.0)
== END 2022-06-11 12:51 | disposition home or self-care (01) ==
LOC: LAB 12:50
PROVIDERS: ATTEND Physician Assistant
DX: M48.061 Spinal stenosis, lumbar region without neurogenic claudication (principal)
CPT/HCPCS: 36415; 82565

== ENCOUNTER 2022-06-28 14:02 | Emergency (ER) | payer MEDICARE ==
[2022-06-28 14:18] VITALS: BP 124/78
[2022-06-28] MEDS ORDERED: SODIUM CHLORIDE 0.9% 1,000 ML IV STA (14:27)
--- NOTE | 2022-06-28 14:30 | ED Physician Documentation ---
History of Present Illness - Stated complaint Stated Complaint: C+ N/D - Chief complaint Chief Complaint: Abd Pain - Additonal information Additional information: 72-year-old female presents to the emergency department for evaluation of abdo faith pain and diarrhea. States that about 6 days ago she began having some loose stools but over the last 4 days has had nothing but watery stools. Anytime she eats it runs right through her. She denies fevers. None of the output is bloody. She has had some nausea but no vomiting. She did test herself at home 2 days ago and was found to be positive for COVID-19. Denies any recent travel. Is not taking any antibiotics. No similar illness at home. She appears remarkably well in the room. Review of Systems Constitutional: denies: Fever, Chills Nose: reports: Reviewed and negative Throat: reports: Reviewed and negative Cardiac: reports: Reviewed and negative Respiratory: reports: Reviewed and negative GI: reports: Diarrhea. 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, Other HEENT: Tonsil/Adenoidectomy - Present Medications Home Medications: Ambulatory Orders Medication Instructions Recorded Confirmed Carisoprodol/Aspirin 1 tab PO Q8HR 11/23/13 08/13/15 [Carisoprodl-Aspirin 200-325 mg] Cyclobenzaprine [Flexeril] 10 mg PO DAILY PRN 11/23/13 11/23/19 Sumatriptan Inj [Imitrex Inj] 100 mg ORAL BID PRN 11/23/13 11/23/19 Valacyclovir HCl [Valacyclovir] 500 mg ORAL DAILY 11/23/13 09/09/18 traZODone [Desyrel] 50 mg OP QPM 11/23/13 09/09/18 Cyanocobalamin (Vitamin B-12) 1,000 mcg PO DAILY 03/24/14 11/23/19 [B-12] Vitamin B Complex 1 each PO DAILY 03/24/14 09/09/18 carisoprodoL [Soma] 1 mg ORAL DAILY 08/13/15 08/13/15 Biosil 09/09/18 Dextroamphetamine/Amphetamine 30 mg PO DAILY 09/09/18 09/09/18 [Adderall 30 mg Tablet] Hydrocodone/Acetaminophen 1 - 2 each PO Q6H PRN #14 tablet 02/13/19 [Hydrocodon-Acetaminophen 5-325] Meloxicam [Mobic] 7.5 mg PO BID PRN #20 tablet 02/13/19 - Allergies Allergies/Adverse Reactions: Allergies Allergy/AdvReac Type Severity Reaction Status Date / Time lovastatin Allergy Severe Palpitations/Dry Verified 06/28/22 14:18 mouth/ Confusion Sulfa (Sulfonamide Allergy Intermediate Rash/Hives Verified 06/28/22 14:18 Antibiotics) albuterol Allergy Unknown Verified 06/28/22 14:18 ciprofloxacin [From Cipro] Allergy Rash Verified 06/28/22 14:18 levofloxacin [From Levaquin] Allergy Rash Verified 06/28/22 14:18 prednisone Allergy Unknown Verified 06/28/22 14:18 acetaminophen [From Percocet] AdvReac Headache Verified 06/28/22 14:18 bupropion [From Wellbutrin] AdvReac Anxiety Verified 06/28/22 14:18 hydromorphone AdvReac Headache Verified 06/28/22 14:18 nitrofurantoin AdvReac Nausea Verified 06/28/22 14:18 oxycodone [From Percocet] AdvReac Headache Verified 06/28/22 14:18 lamictal AdvReac Severe Rapid Uncoded 06/28/22 14:18 heart rate Percocet AdvReac Severe Migraines Uncoded 06/28/22 14:18 - Social History Does the pt smoke?: No Smoking Status: Never smoker Does the pt drink ETOH?: No Does the pt have substance abuse?: No PD ED PE NORMAL - General General: Alert and oriented X 3, No acute distress - Neck Neck: Supple, no meningeal sign, No adenopathy - Cardiac Cardiac: RRR, No murmur - Respiratory Respiratory: No respiratory distress, Clear bilaterally - Abdomen Abdomen: Soft, Non tender (No tenderness elicited with light or deep palpation. No percussion tenderness). No: Normal bowel sounds (Hyperactive) - Derm Derm: Normal color, Warm and dry, No rash - Extremities Extremities: No deformity - Neuro Neuro: Alert and oriented X 3 Eye Opening: Spontaneous Motor: Obeys Commands Verbal: Oriented GCS Score: 15 Results - Vitals Vitals: Vital Signs - 24 hr 06/28/22 14:14 Temperature 36.2 C L Heart Rate 103 H Respiratory 20 Rate Blood Pressure 124/78 O2 Saturation 99 Oxygen O2 Source Room air - Labs Labs: Laboratory Tests 06/28/22 06/28/22 14:28 14:28 WBC 5.8 RBC 4.31 Hgb 13.8 Hct 41.0 MCV 95.1 MCH 32.0 H MCHC 33.7 RDW 13.3 Plt Count 208 MPV 10.7 Neut # (Auto) 4.2 Lymph # (Auto) 0.9 L [place] # (Auto) 0.7 Eos # (Auto) 0.0 Baso # (Auto) 0.0 Absolute Nucleated RBC 0.00 Nucleated RBC % 0.0 Sodium 136 Potassium 3.5 Chloride 100 L Carbon Dioxide 22 Anion Gap 14.0 H BUN 21 H Creatinine 1.0 Estimated GFR (MDRD) 54 L Glucose 100 Calcium 9.6 Total Bilirubin 0.8 AST 47 H ALT 49 Alkaline Phosphatase 71 Total Protein 7.1 Albumin 4.2 Globulin 2.9 Albumin/Globulin Ratio 1.4 Lipase 26 - Rads (name of study) CT abd Relevant Findings:: Final report received (Fluid extending throughout the colon consistent with a diarrheal type illness. Recommend clinical correlation. 1 cm nodular density along the gallbladder fundus may represent a focal adenomyomatosis versus liver lesion. Consider outpatient ultrasound.) PD Medical Decision Making - ED course Complexity details: reviewed results, re-evaluated patient, considered differential, d/w patient ED course: 72-year-old female presents emergency department for evaluation of 4 days watery diarrhea as well as a COVID-19 infection began 2 days ago. She is concerned she is getting dehydrated. Despite taking Imodium she continues to have diarrhea. No fevers. Nonbloody. Denies any recent antibiotics. I did attempt to get a stool for C. difficile testing but the patient was unable to provide a sample here in the ER. I obtained CBC and electrolytes and per my interpretation there are no acute worrisome findings. Specifically no leukocytosis or electrolyte derangement suggesting renal or liver impairment. Patient is without fever, hypotension or tachycardia. Her abdominal exam was benign. Patient was given a liter of fluid here in the ER and states that she is feeling better. I did offer Paxlovid for treatment of her COVID-19 but she declined that. As we are unable to obtain a C. difficile stool specimen I suspect that the diarrhea is going to begin to resolve. We discussed the usual conservative care measures as well as emergent return precautions at home. Departure - Departure Disposition: Home, Self Care Clinical Impression: COVID-19 virus infection, Gallbladder anomaly Condition: Stable Record reviewed to determine appropriate education?: Yes Comments: You came to the emergency department because you have had diarrhea for 4 days and tested positive for COVID 2 days ago. Here in the emergency department your CBC and electrolytes were all essentially normal. The CT scan of your belly showed that you have some fluid through your intestines consistent with diarrhea. You do have a nodule near the gallbladder that should be evaluated with an outpatient ultrasound to determine if it is a polyp or liver lesion. Please discuss this with your primary doctor. Important to stay well-hydrated. Drink lots of water fluid or Pedialyte. I would recommend that you start putting bulk in your stool with the diet. Start by eating bananas, rice, applesauce and toast. You can continue to take Imodium at home. Return to the ER if you find that the diarrhea is not getting better over the next few days, you have any fevers, black or bloody stools or any other emergent concerns.
[2022-06-28 14:34] LABS: BASOPHILS % (AUTO) 0.5 %; EOSINOPHILS % (AUTO) 0.3 %; HGB - HEMOGLOBIN 13.8 g/dL (12.0-16.0); LYMPHOCYTES # (AUTO) 0.9 10^3/uL (1.5-3.5); LYMPHOCYTES % (AUTO) 14.6 %; MEAN CORPUSCULAR HGB CONC 33.7 g/dL (32.0-36.0); MEAN CORPUSCULAR VOLUME 95.1 fL (81.0-99.0); MEAN PLATELET VOLUME 10.7 fL (7.9-10.8); MONOCYTES # (AUTO) 0.7 10^3/uL (0.0-1.0); MONOCYTES % (AUTO) 11.9 %; NEUTROPHILS # (AUTO) 4.2 10^3/uL (1.5-6.6); NEUTROPHILS % (AUTO) 72.5 %; PLT - PLATELET COUNT 208 10^3/uL (130-450); RED BLOOD COUNT 4.31 10^6/uL (4.20-5.40); RED CELL DISTRIBUTION WIDTH 13.3 % (12.0-15.0); WHITE BLOOD COUNT 5.8 x10^3/uL (4.8-10.8)
[2022-06-28 14:45] LABS: ALBUMIN 4.2 g/dL (3.2-5.5); ALBUMIN/GLOBULIN RATIO 1.4 (1.0-2.2); BILIRUBIN,TOTAL 0.8 mg/dL (0.2-1.0); CALCIUM 9.6 mg/dL (8.5-10.3); POTASSIUM 3.5 mmol/L (3.5-5.0); TOTAL PROTEIN 7.1 g/dL (6.7-8.2)
[2022-06-28] MEDS ORDERED: iohexoL-300 100 ML VIAL ONE (15:20)
[2022-06-28] MEDS ORDERED: iohexoL-300 100 ML VIAL IVP ONE (15:48)
--- NOTE | 2022-06-28 16:10 | CT Report ---
PROCEDURE: ABDOMEN/PELVIS W INDICATIONS: diarrhea, abd pain CONTRAST: 100ml omni 300 TECHNIQUE: After the administration of nonionic iodinated contrast, 5 mm thick sections acquired from the diaphr agms to the symphysis. 5 mm thick coronal and sagittal reformats were acquired. For radiation dose reduction, the following was used: automated exposure control, adjustment of mA and/or kV according to patient size. COMPARISON: None FINDINGS: Image quality: Excellent. Lung bases and heart: 4 mm nodularity of the right lung base likely represents focal dilation of the adjacent vessel and may represent a small vascular abnormality and may represent sequela of prior inf ection or trauma. No focal consolidation. Mild basilar atelectasis. Heart size is within normal limit s. Mild coronary vascular calcifications. Liver: Unremarkable. Gallbladder and biliary tree: There is a small nodule adjacent to the gallbladder fundus (series 3 im age 26) this measures 1 cm in greatest diameter. Spleen: Unremarkable. Pancreas: Unremarkable. Adrenals: Unremarkable. Kidneys and ureters: Unremarkable. Bowel and peritoneum: No evidence of obstruction. The stomach and small bowel are unremarkable. There is fluid noted extending throughout the colon. No wall thickening or surrounding inflammation. No as cites or pneumoperitoneum. Lymph nodes: No central or retroperitoneal adenopathy. Vessels: Vascular calcifications noted throughout the abdominal aorta and branch vessels. PELVIS Reproductive organs: Unremarkable. Bladder: Unremarkable. Lymph nodes: Unremarkable. Bones: Postsurgical changes of posterior fusion of L4-L5. Neurostimulator noted within the posterior soft tissues. Degenerative changes of the spine and hips. No acute osseous abnormality. No aggressive appearing osseous lesion. Other: Small fat-containing periumbilical hernia. IMPRESSION: Fluid extending throughout the colon consistent with a diarrheal-type illness. Recommend clinical cor relation. 1 cm nodular density along the gallbladder fundus may represent focal adenomyomatosis versus liver le tamie. Consider initial evaluation with outpatient ultrasound. Reviewed by: Oniel Chanel DO on 06/28/2022 3:08 PM LAURA Approved by: Oniel Chanel DO on 06/28/2022 3:08 PM LAURA Station ID: [id number]
== END 2022-06-28 16:36 | disposition home or self-care (01) ==
LOC: ED 14:02
DX: U07.1 COVID-19 (principal)
CPT/HCPCS: 36415; 74177; 80053; 83690; 85025; 99284; Q9967

== ENCOUNTER 2022-07-11 12:00 | Outpatient (CLI) | payer MEDICARE ==
--- NOTE | 2022-07-11 12:35 | XRAY Report ---
PROCEDURE: Lumbar Spine 2 View INDICATIONS: SPINAL STENOSIS TECHNIQUE: 2 views of the lumbar spine were acquired. COMPARISON: CT abdomen pelvis 06/28/2022. FINDINGS: Bones: 5 [id number] vertebrae are present. L4-L5 pedicle screw fixation. No hardware fracture. Small vertebral body osteophytes. There is normal bony alignment. No vertebral body compression fra ctures. No suspicious bony lesions. Soft tissues: Stimulator device within the posterior soft tissues at the L2 level. Leads projecting in the at the posterior elements, unchanged. Overlying bowel gas pattern is normal. No suspicious so ft tissue calcifications. IMPRESSION: Stable L4-L5 pedicle screw fixation and spine stimulator device. No compression fracture. Reviewed by: Michael Quesada MD on 07/11/2022 12:34 PM PDT Approved by: Michael Quesada MD on 07/11/2022 12:34 PM PDT Station ID: [id number]
[2022-07-11] MEDS ORDERED: GADOBUTROL 7.5 MMOL/7.5 ML VIAL IVP ONE (13:21)
--- NOTE | 2022-07-11 16:28 | MRI Report ---
PROCEDURE: LUMBAR SPINE W/WO INDICATIONS: SPINAL STENOSIS CONTRAST: GADAVIST 6.6 ML TECHNIQUE: Noncontrast sagittal T1 spin echo and T2 fast spin echo, sagittal STIR, axial T1 and T2 fast spin ech o through the lumbar spine. In cases with scoliosis, additional coronal T2 fast spin echo may be per formed. After the administration of contrast, sagittal and axial T1 spin echo with fat saturation th rough the lumbar spine. COMPARISON: CT abdomen and pelvis dated 06/28/2022, lumbar spine MRI dated 03/27/2014. FINDINGS: Image quality: Excellent. Alignment and curvature: There is normal bony alignment. Posterior decompression at L4-L5 and poste rior lateral pooja and pedicle screw fixation at that level. Marrow: Marrow is of normal overall signal. No acute vertebral body compression fractures. No susp icious marrow enhancement. Spinal cord: Conus medullaris terminates at the L1-L2 level. Visualized spinal cord demonstrates no rmal signal, without suspicious enhancement. Paraspinous soft tissues: No paravertebral masses or abnormal enhancement. T12-L1: Normal in appearance. L1-L2: Mild facet hypertrophy. No canal stenosis or foraminal stenosis. L2-L3: Disc bulge. Facet hypertrophy. Mild central canal stenosis and bilateral lateral recess namita nosis. Mild bilateral foraminal stenosis. L3-L4: Disc bulge. Facet hypertrophy. Mild to moderate canal stenosis. Mild bilateral foraminal [place]ita nosis. L4-L5: Fusion hardware. No canal stenosis or foraminal stenosis. L5-S1: Disc bulge. Facet hypertrophy. No canal stenosis or foraminal stenosis. IMPRESSION: 1. Remote posterior lateral fusion at L4-L5. 2. Expected appearance of surgical level. 3. Canal stenosis is mild at L2-L3 and mild to moderate at L3-L4. Reviewed by: Abbe Camara MD on 07/11/2022 4:26 PM PDT Approved by: Abbe Camara MD on 07/11/2022 4:26 PM PDT Station ID: [id number]
== END 2022-07-11 12:01 | disposition home or self-care (01) ==
LOC: DI 12:00
PROVIDERS: ATTEND Physician Assistant
DX: M47.816 Spondylosis without myelopathy or radiculopathy, lumbar region (principal); M51.36 Other intervertebral disc degeneration, lumbar region; M48.061 Spinal stenosis, lumbar region without neurogenic claudication; M51.37 Other intervertebral disc degeneration, lumbosacral region; M47.817 Spondylosis without myelopathy or radiculopathy, lumbosacral region; Z98.1 Arthrodesis status
CPT/HCPCS: 72100; 72158; A9585

== ENCOUNTER 2022-08-28 10:22 | Outpatient (CLI) | payer MEDICARE ==
--- NOTE | 2022-08-28 16:37 | Ultrasound Report ---
PROCEDURE: Abdomen Limited INDICATIONS: POLYP OF GALLBLADDER TECHNIQUE: Real-time focused scanning was performed of the abdomen, with image documentation. COMPARISONS: None. FINDINGS: Liver: Liver is normal in size and homogeneous in echotexture. Hepatic echotexture is diffusely inc reased Gallbladder: Unremarkable. Biliary ducts: Intrahepatic bile ducts are non-dilated. Extrahepatic bile duct caliber measures 6 m m. Normal is 6-7 mm or less in diameter, or 10 mm or less post-cholecystectomy. Pancreas: Visualized portions of the pancreas are sonographically normal. Right kidney: Normal in size and echotexture. Right kidney measures 12.0 cm long. No hydronephrosis or nephrolithiasis. No solid masses. No complex renal cystic lesions which require follow-up. Aorta: Visualized aorta is normal in caliber at less than 3 cm. IVC: Intrahepatic inferior vena cava is patent. Miscellaneous: No free abdominal fluid. IMPRESSION: Hepatic steatosis. No acute process. Reviewed by: Rusty Alexandre MD on 08/28/2022 4:35 PM PDT Approved by: Rusty Alexandre MD on 08/28/2022 4:35 PM PDT Station ID: [id number]
== END 2022-08-28 10:23 | disposition home or self-care (01) ==
LOC: DI 10:22
PROVIDERS: ATTEND Physician Assistant
DX: K76.0 Fatty (change of) liver, not elsewhere classified (principal)

== ENCOUNTER 2024-03-20 13:22 | Inpatient (IN) ==
--- NOTE | 2024-03-20 13:53 | ED Physician Documentation ---
History of Present Illness Stated complaint Stated Complaint: GEN WEAKNESS Chief complaint Chief Complaint: General History obtained from History obtained from: Patient and Family History of Present Illness Timing: How many weeks ago (2) Pain level max: 5 Pain level now: 5 Additonal information Additional information: Patient is a 73-year-old female who presents to the emergency department generalized weakness ongoing for the past several weeks. Was seen here about a week ago, diagnosed with anemia and atrial fibrillation paroxysmally. Started on metoprolol. She states since that time has become increasingly weak, unable to get out of bed. No fevers. No chills. Has had dark tarry stools for the past several weeks. She is not on blood thinners. 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 Not having any abdominal pain. She is scheduled to have a colonoscopy next month but states that she canceled this because she felt too weak. She states that she has tested positive for blood in the stool in the past. She states that she feels short of breath with any exertion. Has generalized body pain. No fevers. No cough. No nausea or vomiting. No abdominal pain. Review of Systems Constitutional Reports: Chills; Denies: Fever Eyes Denies: Pain Ears, nose, mouth, and throat Denies: Ear discharge Cardiovascular Denies: chest pain or palpitations Respiratory Denies: Cough Gastrointestinal Denies: Abdominal pain, Nausea, Vomiting, Camron blood emesis, Coffee grounds in vomit or Diarrhea Integumentary/Breast Denies: Rash Neurological Denies: Headache Meds/Allgy Home Medications Ambulatory Orders Medication Instructions Recorded Confirmed cyclobenzaprine 10 mg tablet 10 mg PO DAILY PRN Spasms 11/23/13 03/20/24 sumatriptan succinate 6 mg/0.5 mL 100 mg ORAL BID PRN Migraine 11/23/13 03/20/24 subcutaneous solution trazodone 50 mg tablet 100 mg PO QPM 11/23/13 03/20/24 valacyclovir 500 mg tablet 500 mg ORAL DAILY 11/23/13 03/20/24 cyanocobalamin (vitamin B-12) 1,000 mcg PO DAILY 03/24/14 03/20/24 1,000 mcg tablet vitamin B complex 1 cap PO DAILY 03/24/14 03/20/24 dextroamphetamine-amphetamine 30 30 mg PO DAILY 09/09/18 03/20/24 mg tablet (Adderall) hydrocodone 5 mg-acetaminophen 325 1 - 2 ea PO Q6H PRN pain #14 tabs 02/13/19 03/20/24 mg tablet carisoprodol 350 mg tablet 350 mg PO Q8HR 03/20/24 03/20/24 metoprolol tartrate 25 mg tablet 25 mg PO BID 03/20/24 03/20/24 Allergies Allergies Allergy/AdvReac Type Severity Reaction Status Date / Time lovastatin Allergy Severe Palpitations/Dry Verified 03/20/24 13:27 mouth/ Confusion Sulfa (Sulfonamide Allergy Intermediate Rash/Hives Verified 03/20/24 13:27 Antibiotics) albuterol Allergy Unknown Verified 03/20/24 13:27 ciprofloxacin (From Cipro) Allergy Rash Verified 03/20/24 13:27 levofloxacin (From Levaquin) Allergy Rash Verified 03/20/24 13:27 prednisone Allergy Unknown Verified 03/20/24 13:27 acetaminophen (From Percocet) AdvReac Headache Verified 03/20/24 13:27 bupropion (From Wellbutrin) AdvReac Anxiety Verified 03/20/24 13:27 hydromorphone AdvReac Headache Verified 03/20/24 13:27 nitrofurantoin AdvReac Nausea Verified 03/20/24 13:27 oxycodone (From Percocet) AdvReac Headache Verified 03/20/24 13:27 lamictal AdvReac Severe Rapid Uncoded 03/18/24 15:25 heart rate Percocet AdvReac Severe Migraines Uncoded 03/18/24 15:25 PFSH Medical History Medical History (Updated 03/20/24 @ 19:56 by Tony Bravo MD) Atrial fibrillation Anemia Surgical History Surgical History (Updated 03/20/24 @ 14:02 by Ghazala Fernandez RN) No pertinent past surgical history Social History Social History (Updated 03/20/24 @ 14:02 by Ghazala Fernandez RN) Smoking Status: Former smoker If you are a former smoker, when did you quit? (Date/Year): 2014 Number of Years Smoked: 28 How many cigarettes a day do you smoke? (20 cigarettes=1 Pk): 6 Second hand tobacco smoke exposure: No Do you dip or chew tobacco?: No Do you vape?: No Patient requests smoking cessation consult: No Initiate information on smoking cessation: No Living arrangement: At home Living Condition: With family Relationship: Level: Independent Do you feel safe in your home environment?: Yes Suffered physical, verbal, emotional, or financial abuse?: No History of Abuse: No Substance Use: former substance user Substance Use Details: Marijuana Exam Constitutional pale appearing HENMT oropharynx normal moist mucous membranes Eyes PERRL Neck/C-Spine visual inspection normal Respiratory breath sounds equal bilaterally, normal respiratory effort and clear to auscultation bilaterally Cardiovascular normal heart rate noted and regular rhythm noted Gastrointestinal abdomen normal to inspection, abdomen soft to palpation, nontender to palpation and nondistended Genitourinary no CVA tenderness Extremities no deformity no edema Neurology speech normal Psychiatry mental status grossly normal and oriented x3 Skin skin color normal Results Vitals Vitals: Vital Signs - 24 hr 03/20/24 13:27 03/20/24 14:02 03/20/24 14:30 Temperature 36.8 C Temperature Source Tympanic Pulse Rate 80 87 91 Respiratory Rate 16 20 16 Blood Pressure 95/50 L 114/54 L 127/57 L O2 Saturation 94 92 98 O2 Source Room air Room air Pain Intensity 6 5 1 03/20/24 15:44 Temperature Temperature Source Pulse Rate 89 Respiratory Rate 18 Blood Pressure 126/65 O2 Saturation 99 O2 Source Room air Pain Intensity 1 Oxygen O2 Source Room air EKG (time done) 1341: EKG releavant findings:: EKG personally interpreted by author of this note. Relevant findings are: Rate: Other (89 bpm. Sinus rhythm. Occasional PVC. No ischemic changes. Normal axis. Normal UT interval. normal QRS) Labs Labs: Laboratory Tests 03/20/24 03/20/24 03/20/24 13:50 13:56 14:10 WBC 7.3 RBC 1.42 L Hgb 5.0 L* Hct 13.2 L* MCV 93.0 MCH 35.2 H MCHC 37.9 H RDW 16.0 H Plt Count Neut # (Auto) Not Reportable Lymph # (Auto) Not Reportable [place] # (Auto) Not Reportable Eos # (Auto) Not Reportable Baso # (Auto) Not Reportable Absolute Nucleated RBC Not Reportable Total Counted 100 Band Neuts % (Manual) 0 Abnorm Lymph % (Manual) 0 Nucleated RBC % Not Reportable Neutrophils # (Manual) 6.4 Lymphocytes # (Manual) 0.4 L Monocytes # (Manual) 0.4 Eosinophils # (Manual) 0.0 Basophils # (Manual) 0.0 Differential Comment MANUAL DIFFERENTIAL Platelet Estimate NORMAL (130-450,000) Platelet Morphology PLATELET CLUMPING RBC Morph Micro Appear NORMAL APPEARANCE PT 13.1 H INR 1.2 APTT 21.2 L Sodium 129 L Potassium 3.7 Chloride 96 L Carbon Dioxide 26 Anion Gap 7.0 BUN 19 Creatinine 1.0 Estimated GFR (MDRD) 54 L Glucose 148 H Calcium 9.9 Phosphorus 3.3 Magnesium 0.9 L* Total Bilirubin 1.4 H AST 14 ALT 9 L Alkaline Phosphatase 66 Total Protein 7.7 Albumin 3.9 Globulin 3.8 Albumin/Globulin Ratio 1.0 Lipase 27 Urine Color Urine Clarity Urine pH Ur Specific [place] Urine Protein Urine Glucose (UA) Urine Ketones Urine Occult Blood Urine Nitrite Urine Bilirubin Urine Urobilinogen Ur Leukocyte Esterase Ur Microscopic Review Urine Culture Comments Nasal Adenovirus (PCR) NOT DETECTED Nasal B. parapertussis DNA (PCR) NOT DETECTED Nasal Coronavir 229E PCR NOT DETECTED Nasal Coronavir HKU1 PCR NOT DETECTED Nasal Coronavir NL63 PCR NOT DETECTED Nasal Coronavir OC43 PCR NOT DETECTED Nasal Enterovir/Rhinovir PCR NOT DETECTED Nasal Influenza B PCR NOT DETECTED Nasal Influenza A PCR NOT DETECTED Nasal Parainfluen 1 PCR NOT DETECTED Nasal Parainfluen 2 PCR NOT DETECTED Nasal Parainfluen 3 PCR NOT DETECTED Nasal Parainfluen 4 PCR NOT DETECTED Nasal RSV (PCR) NOT DETECTED Nasal B.pertussis DNA PCR NOT DETECTED Nasal C.pneumoniae (PCR) NOT DETECTED Ankit Human Metapneumo PCR NOT DETECTED Nasal M.pneumoniae (PCR) NOT DETECTED Nasal SARS-CoV-2 (PCR) NOT DETECTED Antibody Screen FARTUN, IgG Specific FARTUN, Polyspecific FARTUN, C3d Specific Crossmatch 03/20/24 03/20/24 14:43 15:45 WBC RBC Hgb Hct MCV MCH MCHC RDW Plt Count Neut # (Auto) Lymph # (Auto) [place] # (Auto) Eos # (Auto) Baso # (Auto) Absolute Nucleated RBC Total Counted Band Neuts % (Manual) Abnorm Lymph % (Manual) Nucleated RBC % Neutrophils # (Manual) Lymphocytes # (Manual) Monocytes # (Manual) Eosinophils # (Manual) Basophils # (Manual) Differential Comment Platelet Estimate Platelet Morphology RBC Morph Micro Appear PT INR APTT Sodium Potassium Chloride Carbon Dioxide Anion Gap BUN Creatinine Estimated GFR (MDRD) Glucose Calcium Phosphorus Magnesium Total Bilirubin AST ALT Alkaline Phosphatase Total Protein Albumin Globulin Albumin/Globulin Ratio Lipase Urine Color DARK YELLOW Urine Clarity CLEAR Urine pH 6.5 Ur Specific [place] 1.015 Urine Protein NEGATIVE Urine Glucose (UA) NEGATIVE Urine Ketones NEGATIVE Urine Occult Blood NEGATIVE Urine Nitrite NEGATIVE Urine Bilirubin NEGATIVE Urine Urobilinogen 1 (NORMAL) Ur Leukocyte Esterase NEGATIVE Ur Microscopic Review NOT INDICATED Urine Culture Comments NOT INDICATED Nasal Adenovirus (PCR) Nasal B. parapertussis DNA (PCR) Nasal Coronavir 229E PCR Nasal Coronavir HKU1 PCR Nasal Coronavir NL63 PCR Nasal Coronavir OC43 PCR Nasal Enterovir/Rhinovir PCR Nasal Influenza B PCR Nasal Influenza A PCR Nasal Parainfluen 1 PCR Nasal Parainfluen 2 PCR Nasal Parainfluen 3 PCR Nasal Parainfluen 4 PCR Nasal RSV (PCR) Nasal B.pertussis DNA PCR Nasal C.pneumoniae (PCR) Ankit Human Metapneumo PCR Nasal M.pneumoniae (PCR) Nasal SARS-CoV-2 (PCR) Antibody Screen POSITIVE FARTUN, IgG Specific POSITIVE FARTUN, Polyspecific POSITIVE FARTUN, C3d Specific POSITIVE Crossmatch See Detail PD Medical Decision Making ED course Complexity details: reviewed results, considered differential and d/w patient ED course: Patient is a 73-year-old female who presents to the emergency department with increasing weakness. She has significant anemia, hgb 5, and hypomagnesemia. Gi arline IV magnesium. Given IV fluids and blood was ordered. Has significant antibodies in her blood that will require further testing prior to blood transfusion being given. She is hemodynamically stable with what appears to be likely a slow GI bleed. Discussed the case with Dr. Saucedo, general surgery who will consult. Patient had an EGD approximately 9 months ago that did not show any acute abnormalities. Given IV Protonix. Abdomen is soft, nontender nondistended. No indication for emergent CT scan. Discussed the case with the hospitalist who accepts. This document was made in part using voice recognition software. While efforts are made to proofread this document, sound alike and grammatical errors may occur. Discharge Plan Discharge Patient Disposition: [facility] DC/Xfer Condition: Stable Clinical Impression: Hypomagnesemia, Symptomatic anemia Anemia Qualifiers: Anemia type: unspecified type Qualified Code(s): D64.9 - Anemia, unspecified Interventions: ED Admission Assessment Last Done: 03/20/24 17:44
[2024-03-20 14:07] LABS: INR 1.2 (0.8-1.2); PT - PROTHROMBIN TIME 13.1 secs (9.9-12.6)
[2024-03-20 14:14] LABS: PARTIAL THROMBOPLASTIN TIME 21.2 secs (24.9-33.3)
--- NOTE | 2024-03-20 14:17 | XRAY Report ---
PROCEDURE: XR Chest 1V INDICATIONS: cough TECHNIQUE: One view of the chest was acquired. COMPARISON: 03/14/2024 FINDINGS: Surgical changes and devices: None. Lungs and pleura: No consolidation or pleural effusion Mediastinum: Cardiac mediastinal contours are unchanged. Heart size is within normal limits. Bones and chest wall: Degenerative changes. IMPRESSION: No acute radiographic abnormality on this single view study. Reviewed by: Geo Clarke MD on 03/20/2024 1:16 PM [facility] Approved by: Geo Clarke MD on 03/20/2024 1:16 PM [facility] Station ID: [id number]
[2024-03-20 14:21] LABS: ALBUMIN 3.9 g/dL (3.2-5.5); BILIRUBIN,TOTAL 1.4 mg/dL (0.2-1.0); CALCIUM 9.9 mg/dL (8.5-10.3); PHOSPHORUS 3.3 mg/dL (2.5-5.0); POTASSIUM 3.7 mmol/L (3.5-4.5); TOTAL PROTEIN 7.7 g/dL (6.4-8.9)
[2024-03-20 14:26] LABS: MAGNESIUM 0.9 mg/dL (1.7-2.3)
[2024-03-20] MEDS: PANTOPRAZOLE 40 MG VIAL IVP STA (14:46)
[2024-03-20] MEDS: MAGNESIUM SULFATE 2 GRAM 2 GM/50 ML BAG IV ONE (14:56)
[2024-03-20 15:06] LABS: B. PARAPERTUSSIS- RESP PCR PAN NOT DETECTED; B. PERTUSSIS- RESP PCR PANEL NOT DETECTED; C. PNEUMONIAE- RESP PCR PANEL NOT DETECTED; CORONAVIRUS 229E-RESP PCR NOT DETECTED; CORONAVIRUS HKU1-RESP PCR NOT DETECTED; CORONAVIRUS NL63-RESP PCR NOT DETECTED; CORONAVIRUS OC43-RESP PCR NOT DETECTED; HUMAN METAPNEUMOVIRUS NOT DETECTED; INFLUENZA A- RESP PCR PANEL NOT DETECTED; INFLUENZA B - RESP PCR PANEL NOT DETECTED; M. PNEUMONIAE- RESP PCR PANEL NOT DETECTED; PARAINFLUENZA VIRUS 1 NOT DETECTED; PARAINFLUENZA VIRUS 2 NOT DETECTED; PARAINFLUENZA VIRUS 4 NOT DETECTED; RHINOVIRUS/ENTEROVIRUS NOT DETECTED; RSV- RESP PCR PANEL NOT DETECTED; SARS-CoV-2 -RESP PCR PANEL NOT DETECTED
[2024-03-20 15:16] LABS: BASOPHILS % (AUTO) 0.8 %; EOSINOPHILS % (AUTO) 0.5 %; LYMPHOCYTES % (AUTO) 12.8 %; MEAN CORPUSCULAR HEMOGLOBIN 35.2 pg (27.0-31.0); MEAN CORPUSCULAR HGB CONC 37.9 g/dL (32.0-36.0); MONOCYTES % (AUTO) 11.3 %; RED BLOOD COUNT 1.42 10^6/uL (4.20-5.40); WHITE BLOOD COUNT 7.3 x10^3/uL (4.8-10.8)
[2024-03-20 15:22] LABS: HCT - HEMATOCRIT 13.2 % (37.0-47.0)
[2024-03-20 15:24] LABS: ABNORMAL LYMPHS % (MANUAL) 0 %; BAND NEUTROPHILS % (MANUAL) 0 %
[2024-03-20 15:30] LABS: LYMPHOCYTES # (MANUAL) 0.4 10^3/uL (1.5-3.5); LYMPHOCYTES % (MANUAL) 6 %; MONOCYTES # (MANUAL) 0.4 10^3/uL (0.0-1.0); NEUTROPHILS # (MANUAL) 6.4 10^3/uL (1.5-6.6)
[2024-03-20 15:31] LABS: DIFFERENTIAL COMMENT MANUAL DIFFERENTIAL; PLATELET ESTIMATE, MANUAL NORMAL (130-450,000) (NORMAL); PLATELET MORPHOLOGY PLATELET CLUMPING (NORMAL); RBC MORPHOLOGY (MULTIPLE) NORMAL APPEARANCE (NORMAL)
[2024-03-20 15:49] LABS: BILIRUBIN,URINE NEGATIVE (NEGATIVE); GLUCOSE, URINE (UA) NEGATIVE (NEGATIVE); KETONES,URINE (UA) NEGATIVE (NEGATIVE); LEUKOCYTE ESTERASE, URINE NEGATIVE (NEGATIVE); NITRITE,URINE NEGATIVE (NEGATIVE); OCCULT BLOOD,URINE NEGATIVE (NEGATIVE); PH,URINE 6.5 PH (5.0-7.5); PROTEIN,URINE NEGATIVE (NEGATIVE); UROBILINOGEN,URINE 1 (NORMAL) E.U./dL (NORMAL)
[2024-03-20 15:50] LABS: CLARITY,URINE CLEAR (CLEAR)
[2024-03-20] MEDS: ACETAMINOPHEN 325 MG TABLET PO STA (16:23)
--- NOTE | 2024-03-20 16:43 | HISTORY & PHYSICAL EXAMINATION ---
Chief Complaint Chief Complaint Chief Complaint: Weakness, any, dizziness, dark stools History of Present Illness History of Present Illness HPI Comment/Other: This is a 73-year-old female with a past medical hx of anemia, Gerd, on omeprazole, parox. afib, not on anticoagulation who presents to ER with a complaint of worsening weakness, black stools and constipation. Pt states that she has been getting weaker in the last 2 weeks, had constipation, although she denies narcotics for pain or change in diet. Pt feels that her chest is heavy but denies chest pain. Pt denies nausea or vomitting. Pt confirms rapid weight loss of 6 pounds within the last few weeks. Pt also states that she has worsening chronic pain in back and neck. Laboratory Values in the ED indicated hemoglobin of 5.0 and Magnesium of 0.9, Sodium of 129. Chest x-ray is negative for any cardiopulmonary pathology. Surgery was consulted for urgent EGD and colonoscopy. Patient has Cold agglutinin blood antibodies which requires matchedFrom outside this facility.4 units RBCs were ordered. 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 Patient was scheduled for a colonoscopy for 03/21/2024. Patient is full code. Meds/Allgy Home Medications Ambulatory Orders Medication Instructions Recorded Confirmed cyclobenzaprine 10 mg tablet 10 mg PO DAILY PRN Spasms 11/23/13 03/20/24 sumatriptan succinate 6 mg/0.5 mL 100 mg ORAL BID PRN Migraine 11/23/13 03/20/24 subcutaneous solution trazodone 50 mg tablet 100 mg PO QPM 11/23/13 03/20/24 valacyclovir 500 mg tablet 500 mg ORAL DAILY 11/23/13 03/20/24 cyanocobalamin (vitamin B-12) 1,000 mcg PO DAILY 03/24/14 03/20/24 1,000 mcg tablet vitamin B complex 1 cap PO DAILY 03/24/14 03/20/24 dextroamphetamine-amphetamine 30 30 mg PO DAILY 09/09/18 03/20/24 mg tablet (Adderall) hydrocodone 5 mg-acetaminophen 325 1 - 2 ea PO Q6H PRN pain #14 tabs 02/13/19 03/20/24 mg tablet carisoprodol 350 mg tablet 350 mg PO Q8HR 03/20/24 03/20/24 metoprolol tartrate 25 mg tablet 25 mg PO BID 03/20/24 03/20/24 Allergies Allergies Allergy/AdvReac Type Severity Reaction Status Date / Time lovastatin Allergy Severe Palpitations/Dry Verified 03/20/24 13:27 mouth/ Confusion Sulfa (Sulfonamide Allergy Intermediate Rash/Hives Verified 03/20/24 13:27 Antibiotics) albuterol Allergy Unknown Verified 03/20/24 13:27 ciprofloxacin (From Cipro) Allergy Rash Verified 03/20/24 13:27 levofloxacin (From Levaquin) Allergy Rash Verified 03/20/24 13:27 prednisone Allergy Unknown Verified 03/20/24 13:27 acetaminophen (From Percocet) AdvReac Headache Verified 03/20/24 13:27 bupropion (From Wellbutrin) AdvReac Anxiety Verified 03/20/24 13:27 hydromorphone AdvReac Headache Verified 03/20/24 13:27 nitrofurantoin AdvReac Nausea Verified 03/20/24 13:27 oxycodone (From Percocet) AdvReac Headache Verified 03/20/24 13:27 lamictal AdvReac Severe Rapid Uncoded 03/18/24 15:25 heart rate Percocet AdvReac Severe Migraines Uncoded 03/18/24 15:25 PFSH Medical History Medical History (Updated 03/20/24 @ 17:04 by Pat Cerrato DO) Atrial fibrillation Anemia Surgical History Surgical History (Updated 03/20/24 @ 14:02 by Ghazala Fernandez RN) No pertinent past surgical history Social History Social History (Updated 03/20/24 @ 14:02 by Ghazala Fernandez RN) Smoking Status: Never smoker If you are a former smoker, when did you quit? (Date/Year): 2013 How many cigarettes a day do you smoke? (20 cigarettes=1 Pk): 6 Do you dip or chew tobacco?: No Patient requests smoking cessation consult: No Living arrangement: At home Living Condition: With family Relationship: Do you feel safe in your home environment?: Yes Suffered physical, verbal, emotional, or financial abuse?: No History of Abuse: No POLST Patient has POLST: No Review of Systems Status of ROS: 10 or more systems reviewed and unremarkable except as noted in history and below Constitutional Denies: Fever Eyes Reports: Pain Cardiovascular Denies: chest pain or palpitations Respiratory Denies: Cough Gastrointestinal Denies: Abdominal pain, Nausea, Vomiting, Camron blood emesis, Coffee grounds in vomit or Diarrhea Integumentary/Breast Denies: Rash Neurological Denies: Headache Exam Constitutional normal general appearance and no apparent distress pale appearing HENMT normocephalic and head/scalp atraumatic moist mucous membranes Eyes PERRL and EOMs intact bilaterally Neck/C-Spine visual inspection normal and trachea midline Chest inspection of chest normal and palpation of chest normal Respiratory breath sounds equal bilaterally, normal respiratory effort and clear to auscultation bilaterally Cardiovascular normal heart rate noted and regular rhythm noted Gastrointestinal abdomen normal to inspection, abdomen soft to palpation, nontender to palpation and nondistended Extremities no deformity no edema Neurology speech normal Psychiatry mental status grossly normal and oriented x3 Skin skin color normal Conclusion/Plan Problem List (1) Blood loss anemia: Plan: Likely secondary to lower GI bleed. Transfuse 3 units RBCs, monitor H&H. (2) Weakness: Plan: Likely due to blood loss anemia. Reassess after transfusion. Consult PT OT evaluation. (3) Constipation: Plan: Bowel bowel prep to plan for colonoscopy on 03/22/24 (4) Hyponatremia: Plan: Transfuse with D5 NS (5) Hypomagnesemia: Plan: Replace electrolytes (6) GI bleed: Plan: Pediatric history of bradycardia esophagus and multiple EGDs in the past. Plan for EGD tomorrow and colonoscopy the day after. (7) Paroxysmal atrial fibrillation: Plan: Currently patient is in sinus rhythm Patient not on anticoagulation, Or HR control medication. Continue to monitor. Hold pharmaceutical anticoagulation at this time due to GI bleed Lab Results Lab results reviewed: Yes 03/20/24 14:10 03/20/24 13:50 Diagnostic Imaging Results Diagnostic Imaging Results: positive Final report reviewed EKG Results EKG Interpreted Independently: Yes EKG Comparison: Unchanged from prior EKG
[2024-03-20] MEDS ORDERED: SODIUM CHLORIDE 0.9% 1,000 ML IV SCH (17:00)
[2024-03-20] MEDS: DEXTROSE 5%-0.9% NACL 1,000 ML IV SCH ×2 (18:15→18:21)
[2024-03-20] MEDS: SODIUM CHLORIDE FLUSH 0.9% 10 ML SYRINGE IVP SCH (18:15)
[2024-03-20] MEDS: traMADol 50 MG TABLET PO PRN (18:30)
[2024-03-20] MEDS: traZODone 50 MG TABLET PO SCH (20:06)
[2024-03-20] MEDS: SODIUM CHLORIDE 0.9% 500 ML IV ONE (21:41)
[2024-03-20] MEDS: ACETAMINOPHEN 325 MG TABLET PO PRN (22:30)
--- NOTE | 2024-03-20 22:51 | PROVIDER PROGRESS NOTE ---
Progress Note Progress Note Progress Note: Patient is feeling much worse. recheck hemoglobin is now 4. She has a headache, she is short of breath. discussed the situation with Dr Isa Maria at [facility]. It will be several hours before correctly phenotyped blood is available. Dr Maria recommended that the patient get ONE unit of O neg blood. Every unit that we give of uncrossmatched blood increases the probability that this patient develops more antibodies, but in this situation, the patient is more ill and benefit of uncrossmatched blood outweighs risks.
[2024-03-21 03:20] LABS: HCT - HEMATOCRIT 10.2 % (37.0-47.0); HGB - HEMOGLOBIN 3.6 g/dL (12.0-16.0)
[2024-03-21] MEDS: ONDANSETRON ODT 4 MG TABLET TL PRN (03:21)
[2024-03-21] MEDS ORDERED: SODIUM CHLORIDE 0.9% 1,000 ML ONE (04:12)
[2024-03-21] MEDS: diphenhydrAMINE INJ 50 MG/ML VIAL IVP PRN (04:39)
[2024-03-21 06:40] LABS: ALBUMIN 3.2 g/dL (3.2-5.5); BILIRUBIN,DIRECT 0.15 mg/dL (0.03-0.18); BILIRUBIN,TOTAL 1.1 mg/dL (0.2-1.0); CALCIUM 8.5 mg/dL (8.5-10.3); CREATININE 0.8 mg/dL (0.6-1.3); POTASSIUM 3.5 mmol/L (3.5-4.5); TOTAL PROTEIN 6.4 g/dL (6.4-8.9)
[2024-03-21 07:20] LABS: BASOPHILS % (AUTO) 0.6 %; EOSINOPHILS # (AUTO) 0.1 10^3/uL (0.0-0.7); EOSINOPHILS % (AUTO) 1.4 %; LYMPHOCYTES # (AUTO) 0.8 10^3/uL (1.5-3.5); LYMPHOCYTES % (AUTO) 15.3 %; MEAN CORPUSCULAR VOLUME 109.9 fL (81.0-99.0); MEAN PLATELET VOLUME 12.5 fL (7.9-10.8); MONOCYTES # (AUTO) 0.8 10^3/uL (0.0-1.0); MONOCYTES % (AUTO) 15.1 %; NEUTROPHILS # (AUTO) 3.3 10^3/uL (1.5-6.6); NEUTROPHILS % (AUTO) 66.6 %
[2024-03-21 07:36] LABS: RED CELL DISTRIBUTION WIDTH 14.7 % (12.0-15.0)
[2024-03-21 07:37] LABS: MEAN CORPUSCULAR HEMOGLOBIN 31.6 pg (27.0-31.0); RED BLOOD COUNT 1.14 10^6/uL (4.20-5.40)
[2024-03-21 07:39] LABS: HGB - HEMOGLOBIN 3.6 g/dL (12.0-16.0)
[2024-03-21 09:10] LABS: PLATELET ESTIMATE, MANUAL NORMAL (130-450,000) (NORMAL); PLATELET MORPHOLOGY PLATELET CLUMPING (NORMAL)
[2024-03-21 09:11] LABS: RBC MORPHOLOGY (MULTIPLE) NORMAL APPEARANCE (NORMAL); WBC MORPHOLOGY (MULTIPLE) NORMAL APPEARANCE (NORMAL)
[2024-03-21] MEDS: POTASSIUM CHLOR 10 MEQ/100 ML 10 MEQ/100 ML BAG IV SCH (10:29)
[2024-03-21] MEDS: MAGNESIUM SULFATE 2 GRAM 2 GM/50 ML BAG IV SCH (10:29)
--- NOTE | 2024-03-21 11:01 | PROVIDER PROGRESS NOTE ---
Subjective Prog Note Date Prog Note Date: 03/21/24 Prog Note Time: 10:54 Subjective Subjective: This is a 73-year-old female with a past medical hx of anemia, Gerd, on omeprazole, parox. afib, not on anticoagulation who presents to ER with a complaint of worsening weakness, black stools and constipation. Pt states that she has been getting weaker in the last 2 weeks, had constipation, although she denies narcotics for pain or change in diet. Pt feels that her chest is heavy but denies chest pain. Pt denies nausea or vomitting. Pt confirms rapid weight loss of 6 pounds within the last few weeks. Pt also states that she has worsening chronic pain in back and neck. Laboratory Values in the ED indicated hemoglobin of 5.0 and Magnesium of 0.9, Sodium of 129. Chest x-ray is negative for any cardiopulmonary pathology. Surgery was consulted for urgent EGD and colonoscopy. Patient has Cold agglutinin blood antibodies which requires matchedFrom outside this facility.4 units RBCs were ordered. 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 Patient was scheduled for a colonoscopy for 03/21/2024. Patient is full code. 03/21/2024: Patient doing well, complaining of some headache but otherwise no complaints of pain, Shortness of breath or chest pain. Current Medications Current Medications Current Medications: Current Medications Generic Name Dose Route Start Last Admin Trade Name Freq PRN Reason Stop Dose Admin Acetaminophen 650 mg 03/20/24 17:12 03/21/24 04:16 Acetaminophen 325 Mg Tablet PO 650 mg Q4HR PRN Administration Pain 1 to 4, or Fever Diphenhydramine HCl 25 mg 03/20/24 23:12 03/21/24 04:39 Diphenhydramine Inj 50 Mg/Ml Vial IVP 25 mg Q6H PRN Administration Allergy Symptoms Dextrose/Sodium Chloride 1,000 mls @ 100 mls/hr 03/20/24 17:00 03/21/24 06:43 D5ns IV 100 mls/hr .Q10H DENIZ Administration Ondansetron HCl 4 mg 03/20/24 17:12 03/21/24 03:21 Ondansetron Odt 4 Mg Tablet TL 4 mg Q6HR PRN Administration Nausea / Vomiting Sodium Chloride 10 ml 03/20/24 17:12 Sodium Chloride Flush 0.9% 10 Ml Syringe IVP PRN PRN NEEDED PER PROVIDER ORDERS Sodium Chloride 10 ml 03/20/24 17:12 03/21/24 02:27 Sodium Chloride Flush 0.9% 10 Ml Syringe IVP 10 ml 0100,0900,1700 DENIZ Administration Sodium Sulfate/Potass Sulf/Mag Sulf 177 ml 03/21/24 18:00 Sodium/Potassium/Mag Sulfates 354 Ml Prep Kit PO 03/22/24 05:01 1800,0500 DENIZ Tramadol HCl 50 mg 03/20/24 18:06 03/21/24 03:20 Tramadol 50 Mg Tablet PO 50 mg Q4HR PRN Administration Moderate Pain (Level 4-6) Trazodone HCl 50 mg 03/20/24 21:00 03/20/24 20:06 Trazodone 50 Mg Tablet PO 50 mg QPM DENIZ Administration Objective Vital Signs/Intake & Output Reviewed Vital Signs: Yes Vital Signs: Vital Signs x48h Temp Pulse Resp BP Pulse Ox O2 Flow Rate 03/21/24 08:00 36.9 C 109 H 15 109/62 100 4 03/21/24 07:01 83 16 101/59 L 99 4 03/21/24 06:01 36.9 C 82 18 105/56 L 97 4 03/21/24 05:45 36.9 C 82 17 102/65 98 4 03/21/24 05:37 36.9 C 83 18 105/59 L 98 4 03/21/24 05:27 37.3 C 83 18 115/57 L 98 4 03/21/24 05:12 84 14 112/58 L 98 4 03/21/24 04:44 85 20 108/60 96 4 03/21/24 03:10 36.9 C 89 18 122/62 94 2 03/21/24 01:50 36.4 C L 84 18 104/52 L 99 2 Intake & Output: Intake & Output 03/18/24 03/19/24 03/20/24 03/21/24 23:59 23:59 23:59 23:59 Intake Total 1307 / 1307 743 / 743 Output Total 200 / 200 200 / 200 Balance 1107 / 1107 543 / 543 Weight (kg) 60 kg 68.5 kg Objective General Appearance: positive No acute distress and Alert Eyes Bilateral: positive Normal inspection and PERRL ENT: positive ENT inspection nml Neck: positive Nml inspection and Trachea midline Respiratory: positive Chest non-tender and No respiratory distress Cardiovascular: positive Regular rate & rhythm and No murmur Abdomen: positive Non-tender and No organomegaly Skin: positive Color nml and No rash Extremities: positive Non-tender and Full ROM Neurologic/Psychiatric: positive Oriented x3 and CN's nml (2-12) Lab Results 03/21/24 05:25 03/21/24 05:25 Other Labs: Lab Results x24hrs 03/21/24 03/21/24 03/21/24 Range/Units 05:25 04:30 02:00 WBC 5.0 (4.8-10.8) x10^3/uL RBC 1.14 L (4.20-5.40) 10^6/uL Hgb 3.6 L* 3.6 L* (12.0-16.0) g/dL Hct 10.0 L* 10.2 L* (37.0-47.0) % MCV 109.9 H (81.0-99.0) fL MCH 31.6 H (27.0-31.0) pg MCHC 36.0 (32.0-36.0) g/dL RDW 14.7 (12.0-15.0) % Plt Count 9 L* (130-450) 10^3/uL MPV 12.5 H (7.9-10.8) fL Neut # (Auto) 3.3 Lymph # (Auto) 0.8 L [place] # (Auto) 0.8 Eos # (Auto) 0.1 Baso # (Auto) 0.0 Absolute Nucleated RBC 0.00 Total Counted Band Neuts % (Manual) (0 - 10) % Abnorm Lymph % (Manual) % Nucleated RBC % 0.0 Neutrophils # (Manual) (1.5-6.6) 10^3/uL Lymphocytes # (Manual) (1.5-3.5) 10^3/uL Monocytes # (Manual) (0.0-1.0) 10^3/uL Eosinophils # (Manual) (0-0.7) 10^3/uL Basophils # (Manual) (0-0.1) 10^3/uL Differential Comment Platelet Estimate (NORMAL) Platelet Morphology (NORMAL) RBC Morph Micro Appear (NORMAL) PT (9.9-12.6) secs INR (0.8-1.2) APTT (24.9-33.3) secs Sodium 131 L (135-145) mmol/L Potassium 3.5 (3.5-4.5) mmol/L Chloride 101 (101-111) mmol/L Carbon Dioxide 25 (21-32) mmol/L Anion Gap 5.0 L (6-13) BUN 14 (6-20) mg/dL Creatinine 0.8 (0.6-1.3) mg/dL Estimated GFR (MDRD) 70 L (>89) Glucose 136 H (74-104) mg/dL Calcium 8.5 (8.5-10.3) mg/dL Phosphorus (2.5-5.0) mg/dL Magnesium (1.7-2.3) mg/dL Iron 194 (50-212) ug/dL TIBC 265 (250-450) ug/dL % Saturation 73 H (20-50) % Transferrin 189 L (203-362) mg/dL Total Bilirubin 1.1 H (0.2-1.0) mg/dL Direct Bilirubin 0.15 (0.03-0.18) mg/dL Indirect Bilirubin 1.0 mg/dL AST 12 (10-42) IU/L ALT 6 L (10-60) IU/L Alkaline Phosphatase 53 (42-121) IU/L Lactate Dehydrogenase 185 (140-271) IU/L Total Protein 6.4 (6.4-8.9) g/dL Albumin 3.2 (3.2-5.5) g/dL Globulin 3.2 (2.1-4.2) g/dL Albumin/Globulin Ratio 1.0 (1.0-2.2) Lipase (11-82) U/L Vitamin B12 608 (180-914) pg/mL Folate 10.0 (5.90 - >24.8) ng/mL Urine Color Urine Clarity (CLEAR) Urine pH (5.0-7.5) PH Ur Specific [place] (1.002-1.030) Urine Protein (NEGATIVE) mg/dL Urine Glucose (UA) (NEGATIVE) mg/dL Urine Ketones (NEGATIVE) mg/dL Urine Occult Blood (NEGATIVE) Urine Nitrite (NEGATIVE) Urine Bilirubin (NEGATIVE) Urine Urobilinogen (NORMAL) E.U./dL Ur Leukocyte Esterase (NEGATIVE) Ur Microscopic Review Urine Culture Comments Nasal Adenovirus (PCR) Nasal B. parapertussis DNA (PCR) Nasal Coronavir 229E PCR Nasal Coronavir HKU1 PCR Nasal Coronavir NL63 PCR Nasal Coronavir OC43 PCR Nasal Enterovir/Rhinovir PCR Nasal Influenza B PCR Nasal Influenza A PCR Nasal Parainfluen 1 PCR Nasal Parainfluen 2 PCR Nasal Parainfluen 3 PCR Nasal Parainfluen 4 PCR Nasal RSV (PCR) Nasal Screen MRSA (PCR) NEGATIVE (NEGATIVE) Nasal B.pertussis DNA PCR Nasal C.pneumoniae (PCR) Ankit Human Metapneumo PCR Nasal M.pneumoniae (PCR) Nasal SARS-CoV-2 (PCR) Blood Type Blood Type Recheck Antibody Screen Antibody Identification FARTUN, IgG Specific FARTUN, Polyspecific FARTUN, C3d Specific Crossmatch 03/20/24 03/20/24 03/20/24 Range/Units 21:24 15:45 14:43 WBC (4.8-10.8) x10^3/uL RBC (4.20-5.40) 10^6/uL Hgb 4.0 L* (12.0-16.0) g/dL Hct 11.0 L* (37.0-47.0) % MCV (81.0-99.0) fL MCH (27.0-31.0) pg MCHC (32.0-36.0) g/dL RDW (12.0-15.0) % Plt Count (130-450) 10^3/uL MPV (7.9-10.8) fL Neut # (Auto) Lymph # (Auto) [place] # (Auto) Eos # (Auto) Baso # (Auto) Absolute Nucleated RBC Total Counted Band Neuts % (Manual) (0 - 10) % Abnorm Lymph % (Manual) % Nucleated RBC % Neutrophils # (Manual) (1.5-6.6) 10^3/uL Lymphocytes # (Manual) (1.5-3.5) 10^3/uL Monocytes # (Manual) (0.0-1.0) 10^3/uL Eosinophils # (Manual) (0-0.7) 10^3/uL Basophils # (Manual) (0-0.1) 10^3/uL Differential Comment Platelet Estimate (NORMAL) Platelet Morphology (NORMAL) RBC Morph Micro Appear (NORMAL) PT (9.9-12.6) secs INR (0.8-1.2) APTT (24.9-33.3) secs Sodium (135-145) mmol/L Potassium (3.5-4.5) mmol/L Chloride (101-111) mmol/L Carbon Dioxide (21-32) mmol/L Anion Gap (6-13) BUN (6-20) mg/dL Creatinine (0.6-1.3) mg/dL Estimated GFR (MDRD) (>89) Glucose (74-104) mg/dL Calcium (8.5-10.3) mg/dL Phosphorus (2.5-5.0) mg/dL Magnesium (1.7-2.3) mg/dL Iron (50-212) ug/dL TIBC (250-450) ug/dL % Saturation (20-50) % Transferrin (203-362) mg/dL Total Bilirubin (0.2-1.0) mg/dL Direct Bilirubin (0.03-0.18) mg/dL Indirect Bilirubin mg/dL AST (10-42) IU/L ALT (10-60) IU/L Alkaline Phosphatase (42-121) IU/L Lactate Dehydrogenase (140-271) IU/L Total Protein (6.4-8.9) g/dL Albumin (3.2-5.5) g/dL Globulin (2.1-4.2) g/dL Albumin/Globulin Ratio (1.0-2.2) Lipase (11-82) U/L Vitamin B12 (180-914) pg/mL Folate (5.90 - >24.8) ng/mL Urine Color DARK YELLOW Urine Clarity CLEAR (CLEAR) Urine pH 6.5 (5.0-7.5) PH Ur Specific [place] 1.015 (1.002-1.030) Urine Protein NEGATIVE (NEGATIVE) mg/dL Urine Glucose (UA) NEGATIVE (NEGATIVE) mg/dL Urine Ketones NEGATIVE (NEGATIVE) mg/dL Urine Occult Blood NEGATIVE (NEGATIVE) Urine Nitrite NEGATIVE (NEGATIVE) Urine Bilirubin NEGATIVE (NEGATIVE) Urine Urobilinogen 1 (NORMAL) (NORMAL) E.U./dL Ur Leukocyte Esterase NEGATIVE (NEGATIVE) Ur Microscopic Review NOT INDICATED Urine Culture Comments NOT INDICATED Nasal Adenovirus (PCR) Nasal B. parapertussis DNA (PCR) Nasal Coronavir 229E PCR Nasal Coronavir HKU1 PCR Nasal Coronavir NL63 PCR Nasal Coronavir OC43 PCR Nasal Enterovir/Rhinovir PCR Nasal Influenza B PCR Nasal Influenza A PCR Nasal Parainfluen 1 PCR Nasal Parainfluen 2 PCR Nasal Parainfluen 3 PCR Nasal Parainfluen 4 PCR Nasal RSV (PCR) Nasal Screen MRSA (PCR) (NEGATIVE) Nasal B.pertussis DNA PCR Nasal C.pneumoniae (PCR) Ankit Human Metapneumo PCR Nasal M.pneumoniae (PCR) Nasal SARS-CoV-2 (PCR) Blood Type A NEGATIVE Blood Type Recheck Antibody Screen POSITIVE Antibody Identification Inconclusive FARTUN, IgG Specific POSITIVE FARTUN, Polyspecific POSITIVE FARTUN, C3d Specific POSITIVE Crossmatch See Detail 03/20/24 03/20/24 03/20/24 Range/Units 14:10 13:56 13:50 WBC 7.3 (4.8-10.8) x10^3/uL RBC 1.42 L (4.20-5.40) 10^6/uL Hgb 5.0 L* (12.0-16.0) g/dL Hct 13.2 L* (37.0-47.0) % MCV 93.0 (81.0-99.0) fL MCH 35.2 H (27.0-31.0) pg MCHC 37.9 H (32.0-36.0) g/dL RDW 16.0 H (12.0-15.0) % Plt Count (130-450) 10^3/uL MPV (7.9-10.8) fL Neut # (Auto) Not Reportable Lymph # (Auto) Not Reportable [place] # (Auto) Not Reportable Eos # (Auto) Not Reportable Baso # (Auto) Not Reportable Absolute Nucleated RBC Not Reportable Total Counted 100 Band Neuts % (Manual) 0 (0 - 10) % Abnorm Lymph % (Manual) 0 % Nucleated RBC % Not Reportable Neutrophils # (Manual) 6.4 (1.5-6.6) 10^3/uL Lymphocytes # (Manual) 0.4 L (1.5-3.5) 10^3/uL Monocytes # (Manual) 0.4 (0.0-1.0) 10^3/uL Eosinophils # (Manual) 0.0 (0-0.7) 10^3/uL Basophils # (Manual) 0.0 (0-0.1) 10^3/uL Differential Comment MANUAL DIFFERENTIAL Platelet Estimate NORMAL (130-450,000) (NORMAL) Platelet Morphology PLATELET CLUMPING (NORMAL) RBC Morph Micro Appear NORMAL APPEARANCE (NORMAL) PT 13.1 H (9.9-12.6) secs INR 1.2 (0.8-1.2) APTT 21.2 L (24.9-33.3) secs Sodium 129 L (135-145) mmol/L Potassium 3.7 (3.5-4.5) mmol/L Chloride 96 L (101-111) mmol/L Carbon Dioxide 26 (21-32) mmol/L Anion Gap 7.0 (6-13) BUN 19 (6-20) mg/dL Creatinine 1.0 (0.6-1.3) mg/dL Estimated GFR (MDRD) 54 L (>89) Glucose 148 H (74-104) mg/dL Calcium 9.9 (8.5-10.3) mg/dL Phosphorus 3.3 (2.5-5.0) mg/dL Magnesium 0.9 L* (1.7-2.3) mg/dL Iron (50-212) ug/dL TIBC (250-450) ug/dL % Saturation (20-50) % Transferrin (203-362) mg/dL Total Bilirubin 1.4 H (0.2-1.0) mg/dL Direct Bilirubin (0.03-0.18) mg/dL Indirect Bilirubin mg/dL AST 14 (10-42) IU/L ALT 9 L (10-60) IU/L Alkaline Phosphatase 66 (42-121) IU/L Lactate Dehydrogenase (140-271) IU/L Total Protein 7.7 (6.4-8.9) g/dL Albumin 3.9 (3.2-5.5) g/dL Globulin 3.8 (2.1-4.2) g/dL Albumin/Globulin Ratio 1.0 (1.0-2.2) Lipase 27 (11-82) U/L Vitamin B12 (180-914) pg/mL Folate (5.90 - >24.8) ng/mL Urine Color Urine Clarity (CLEAR) Urine pH (5.0-7.5) PH Ur Specific [place] (1.002-1.030) Urine Protein (NEGATIVE) mg/dL Urine Glucose (UA) (NEGATIVE) mg/dL Urine Ketones (NEGATIVE) mg/dL Urine Occult Blood (NEGATIVE) Urine Nitrite (NEGATIVE) Urine Bilirubin (NEGATIVE) Urine Urobilinogen (NORMAL) E.U./dL Ur Leukocyte Esterase (NEGATIVE) Ur Microscopic Review Urine Culture Comments Nasal Adenovirus (PCR) NOT DETECTED Nasal B. parapertussis DNA (PCR) NOT DETECTED Nasal Coronavir 229E PCR NOT DETECTED Nasal Coronavir HKU1 PCR NOT DETECTED Nasal Coronavir NL63 PCR NOT DETECTED Nasal Coronavir OC43 PCR NOT DETECTED Nasal Enterovir/Rhinovir PCR NOT DETECTED Nasal Influenza B PCR NOT DETECTED Nasal Influenza A PCR NOT DETECTED Nasal Parainfluen 1 PCR NOT DETECTED Nasal Parainfluen 2 PCR NOT DETECTED Nasal Parainfluen 3 PCR NOT DETECTED Nasal Parainfluen 4 PCR NOT DETECTED Nasal RSV (PCR) NOT DETECTED Nasal Screen MRSA (PCR) (NEGATIVE) Nasal B.pertussis DNA PCR NOT DETECTED Nasal C.pneumoniae (PCR) NOT DETECTED Ankit Human Metapneumo PCR NOT DETECTED Nasal M.pneumoniae (PCR) NOT DETECTED Nasal SARS-CoV-2 (PCR) NOT DETECTED Blood Type Blood Type Recheck A NEGATIVE Antibody Screen Antibody Identification FARTUN, IgG Specific FARTUN, Polyspecific FARTUN, C3d Specific Crossmatch Assessment/Plan Problem List (1) Blood loss anemia: Impression: Patient received 1 unmatched RBC unit last night and currently is Being transfused with matched RBCs Patient expected to receive a total of 4 units. Patient's hemoglobin dropped from 4.7 on admission to 3.6 this morning. Neurosurgery denies any active bleeding. Patient seems to largely be asymptomatic, normal heart rate in the mid 70s to 80s, stable blood pressure. Consideration of Hemolytic anemia. Follow Folate, vitamin B12, haptoglobin, LDH, blood smear, Unconjugated Bilirubin,retic count. Iron, TIBC and transferrin lab values are as expected. EGD and colonoscopy is planned for 03/22. (2) Weakness: Impression: Likely to longstanding anemia. PT OT evaluation (3) Constipation: Impression: Bowel prep for colonoscopy planned for 03/22/2024 (4) Hyponatremia: Impression: Improved to 131, continue to monitor (5) Hypomagnesemia: Impression: Mg replaced, continue monitor. (6) GI bleed: Impression: Plan for EGD and GI and colonoscopy. 31 Also patient had a large hemoglobin drop overnight there was no evidence of acute active GI bleed. (7) Paroxysmal atrial fibrillation: Impression: Currently in sinus rhythm, Pharmaceutical anti- coagulation due to active Blood loss anemia
--- NOTE | 2024-03-21 14:03 | PHARMACY PROGRESS NOTE ---
Best Possible Medication History Admit Date and Time: 03/21/24 0040 Home Medications Medication Instructions Recorded Confirmed Type cyclobenzaprine 10 mg tablet 10 mg PO DAILY PRN Spasms 11/23/13 03/20/24 History sumatriptan succinate 6 mg/0.5 mL 100 mg ORAL BID PRN Migraine 11/23/13 03/20/24 History subcutaneous solution valacyclovir 500 mg tablet 500 mg ORAL DAILY 11/23/13 03/20/24 History metoprolol tartrate 25 mg tablet 25 mg PO BID 03/20/24 03/20/24 History dextroamphetamine-amphetamine ER 30 mg PO DAILY 03/21/24 03/21/24 History 30 mg 24hr capsule,extend release (Adderall XR) multivitamin 1 tab PO DAILY 03/21/24 03/21/24 History propranolol 10 mg tablet 10 - 20 mg PO TID PRN anxiety 03/21/24 03/21/24 History trazodone 100 mg tablet 100 mg PO HS 03/21/24 03/21/24 History Processed by: Pharmacy Medications reviewed in ED?: Yes Medication History completed: Yes Patient Interview: Completed Secondary Source(s): Insurance records [facility] Statement: As the person ultimately responsible for medication therapy, providers are able to order a medication from an existing home medication list in [facility] via the "Reconcile Routine" prior to Confirmation of that medication by customer support associate. Such practice is discouraged except when the physician, in their clinical judgment, deems that a medical need exists for a medication without regard to previous use.
--- NOTE | 2024-03-21 17:40 | CONSULTATION NOTE ---
History of Present Illness History of Present Illness HPI Comment/Other: 73yoF admitted from ED after presenting with persistent generalized weakness, anemia, recent onset paroxysmal afib, and dark stools. She has been seen in the ED for similar within the last month and was scheduled to see me today actually as an outpatient to set up a diagnostic colonoscopy. She is seen as an inpatient today instead, with her daughter at bedside. She has a baseline hgb of 13, which was 8 in the ED last week, and 5->3.5 this admission. She is remarkably hemodynamically normal, and symptomatic primarily with profound weakness. She is requiring a walker to ambulate, and experiencing severe muscle aches with attempts at walking a few steps. (I see no positive cologuard results) As for stools she reports small very dark pebble sized stools recently. Denies korey/bright red blood in stool. Denies abdominal or anorectal pain. She has some mild nausea, no emesis or hematemesis. She has had colonoscopies and FOBT in the past that were normal (FOBT seen in record, no colonoscopy reports seen in record despite x4 egd reports seen). She has a history of Bravo's esophagus (+ on EGD in 2013 and 2018; EGDs in 2015 and 2019 show no barretts). She takes omeprazole daily and does not experience heartburn. She has a chronic complaint of an elongated uvula that irritates her back to throat and associated swallowing. She has received 3U PRBC this admission thus far, pending f/u hgb. [facility] Medical History Medical History (Updated 03/21/24 @ 17:50 by Isabel Yañez DO) Paroxysmal atrial fibrillation Osteoarthritis Weakness Constipation History of Bravo's esophagus Anemia Surgical History Surgical History (Updated 03/21/24 @ 17:49 by Isabel Yañez DO) History of ovarian cystectomy History of lumbar fusion (~06/05/15) L4-5 History of esophagogastroduodenoscopy (EGD) 2013 (barretts), 2016, 2018 (barretts), 2020 History of arthroscopic knee surgery 2 ACL replacement /1 meniscus tear History of tubal ligation History of tonsillectomy Social History Social History (Updated 03/20/24 @ 14:02 by Ghazala Fernandez RN) Smoking Status: Former smoker If you are a former smoker, when did you quit? (Date/Year): 2014 Number of Years Smoked: 28 How many cigarettes a day do you smoke? (20 cigarettes=1 Pk): 6 Second hand tobacco smoke exposure: No Do you dip or chew tobacco?: No Do you vape?: No Patient requests smoking cessation consult: No Initiate information on smoking cessation: No Living arrangement: At home Living Condition: With family Relationship: Level: Independent Do you feel safe in your home environment?: Yes Suffered physical, verbal, emotional, or financial abuse?: No History of Abuse: No Substance Use: former substance user Substance Use Details: Marijuana POLST Patient has POLST: No Meds/Allgy Home Medications Ambulatory Orders Medication Instructions Recorded Confirmed cyclobenzaprine 10 mg tablet 10 mg PO DAILY PRN Spasms 11/23/13 03/20/24 sumatriptan succinate 6 mg/0.5 mL 100 mg ORAL BID PRN Migraine 11/23/13 03/20/24 subcutaneous solution valacyclovir 500 mg tablet 500 mg ORAL DAILY 11/23/13 03/20/24 metoprolol tartrate 25 mg tablet 25 mg PO BID 03/20/24 03/20/24 dextroamphetamine-amphetamine ER 30 mg PO DAILY 03/21/24 03/21/24 30 mg 24hr capsule,extend release (Adderall XR) multivitamin 1 tab PO DAILY 03/21/24 03/21/24 propranolol 10 mg tablet 10 - 20 mg PO TID PRN anxiety 03/21/24 03/21/24 trazodone 100 mg tablet 100 mg PO HS 03/21/24 03/21/24 Allergies Allergies Allergy/AdvReac Type Severity Reaction Status Date / Time lovastatin Allergy Severe Palpitations/Dry Verified 03/20/24 13:27 mouth/ Confusion Sulfa (Sulfonamide Allergy Intermediate Rash/Hives Verified 03/20/24 13:27 Antibiotics) albuterol Allergy Unknown Verified 03/20/24 13:27 ciprofloxacin (From Cipro) Allergy Rash Verified 03/20/24 13:27 levofloxacin (From Levaquin) Allergy Rash Verified 03/20/24 13:27 prednisone Allergy Unknown Verified 03/20/24 13:27 acetaminophen (From Percocet) AdvReac Headache Verified 03/20/24 13:27 bupropion (From Wellbutrin) AdvReac Anxiety Verified 03/20/24 13:27 hydromorphone AdvReac Headache Verified 03/20/24 13:27 nitrofurantoin AdvReac Nausea Verified 03/20/24 13:27 oxycodone (From Percocet) AdvReac Headache Verified 03/20/24 13:27 lamictal AdvReac Severe Rapid Uncoded 03/18/24 15:25 heart rate Percocet AdvReac Severe Migraines Uncoded 03/18/24 15:25 Results Lab Results 03/21/24 05:25 03/21/24 05:25 Other Lab Results: Lab Results x24hrs 03/21/24 03/21/24 03/21/24 Range/Units 05:25 04:30 02:00 Specimen Type BLOOD WBC 5.0 (4.8-10.8) x10^3/uL RBC 1.14 L (4.20-5.40) 10^6/uL Hgb 3.6 L* 3.6 L* (12.0-16.0) g/dL Hct 10.0 L* 10.2 L* (37.0-47.0) % MCV 109.9 H (81.0-99.0) fL MCH 31.6 H (27.0-31.0) pg MCHC 36.0 (32.0-36.0) g/dL RDW 14.7 (12.0-15.0) % MPV 12.5 H (7.9-10.8) fL Neut # (Auto) 3.3 (1.5-6.6) 10^3/uL Lymph # (Auto) 0.8 L (1.5-3.5) 10^3/uL [place] # (Auto) 0.8 (0.0-1.0) 10^3/uL Eos # (Auto) 0.1 (0.0-0.7) 10^3/uL Baso # (Auto) 0.0 (0.0-0.1) 10^3/uL Absolute Nucleated RBC 0.00 x10^3/uL Nucleated RBC % 0.0 /100WBC WBC Morphology NORMAL APPEARANCE (NORMAL) Platelet Estimate NORMAL (130-450,000) (NORMAL) Platelet Morphology PLATELET CLUMPING (NORMAL) RBC Morph Micro Appear NORMAL APPEARANCE (NORMAL) Sodium 131 L (135-145) mmol/L Potassium 3.5 (3.5-4.5) mmol/L Chloride 101 (101-111) mmol/L Carbon Dioxide 25 (21-32) mmol/L Anion Gap 5.0 L (6-13) BUN 14 (6-20) mg/dL Creatinine 0.8 (0.6-1.3) mg/dL Estimated GFR (MDRD) 70 L (>89) Glucose 136 H (74-104) mg/dL Calcium 8.5 (8.5-10.3) mg/dL Iron 194 (50-212) ug/dL TIBC 265 (250-450) ug/dL % Saturation 73 H (20-50) % Transferrin 189 L (203-362) mg/dL Total Bilirubin 1.1 H (0.2-1.0) mg/dL Direct Bilirubin 0.15 (0.03-0.18) mg/dL Indirect Bilirubin 1.0 mg/dL AST 12 (10-42) IU/L ALT 6 L (10-60) IU/L Alkaline Phosphatase 53 (42-121) IU/L Lactate Dehydrogenase 185 (140-271) IU/L Total Protein 6.4 (6.4-8.9) g/dL Albumin 3.2 (3.2-5.5) g/dL Globulin 3.2 (2.1-4.2) g/dL Albumin/Globulin Ratio 1.0 (1.0-2.2) Vitamin B12 608 (180-914) pg/mL Folate 10.0 (5.90 - >24.8) ng/mL Nasal Screen MRSA (PCR) NEGATIVE (NEGATIVE) Blood Type Blood Type Recheck Antibody Screen Antibody Identification FARTUN, IgG Specific FARTUN, Polyspecific FARTUN, C3d Specific Crossmatch 03/20/24 03/20/24 03/20/24 Range/Units 21:24 14:43 14:43 Specimen Type WBC (4.8-10.8) x10^3/uL RBC (4.20-5.40) 10^6/uL Hgb 4.0 L* (12.0-16.0) g/dL Hct 11.0 L* (37.0-47.0) % MCV (81.0-99.0) fL MCH (27.0-31.0) pg MCHC (32.0-36.0) g/dL RDW (12.0-15.0) % MPV (7.9-10.8) fL Neut # (Auto) (1.5-6.6) 10^3/uL Lymph # (Auto) (1.5-3.5) 10^3/uL [place] # (Auto) (0.0-1.0) 10^3/uL Eos # (Auto) (0.0-0.7) 10^3/uL Baso # (Auto) (0.0-0.1) 10^3/uL Absolute Nucleated RBC x10^3/uL Nucleated RBC % /100WBC WBC Morphology (NORMAL) Platelet Estimate (NORMAL) Platelet Morphology (NORMAL) RBC Morph Micro Appear (NORMAL) Sodium (135-145) mmol/L Potassium (3.5-4.5) mmol/L Chloride (101-111) mmol/L Carbon Dioxide (21-32) mmol/L Anion Gap (6-13) BUN (6-20) mg/dL Creatinine (0.6-1.3) mg/dL Estimated GFR (MDRD) (>89) Glucose (74-104) mg/dL Calcium (8.5-10.3) mg/dL Iron (50-212) ug/dL TIBC (250-450) ug/dL % Saturation (20-50) % Transferrin (203-362) mg/dL Total Bilirubin (0.2-1.0) mg/dL Direct Bilirubin (0.03-0.18) mg/dL Indirect Bilirubin mg/dL AST (10-42) IU/L ALT (10-60) IU/L Alkaline Phosphatase (42-121) IU/L Lactate Dehydrogenase (140-271) IU/L Total Protein (6.4-8.9) g/dL Albumin (3.2-5.5) g/dL Globulin (2.1-4.2) g/dL Albumin/Globulin Ratio (1.0-2.2) Vitamin B12 (180-914) pg/mL Folate (5.90 - >24.8) ng/mL Nasal Screen MRSA (PCR) (NEGATIVE) Blood Type Blood Type Recheck Antibody Screen Antibody Identification Warm Auto Antibody Anti-E FARTUN, IgG Specific POSITIVE FARTUN, Polyspecific POSITIVE FARTUN, C3d Specific POSITIVE Crossmatch See Detail 03/20/24 03/20/24 Range/Units 14:43 13:50 Specimen Type WBC (4.8-10.8) x10^3/uL RBC (4.20-5.40) 10^6/uL Hgb (12.0-16.0) g/dL Hct (37.0-47.0) % MCV (81.0-99.0) fL MCH (27.0-31.0) pg MCHC (32.0-36.0) g/dL RDW (12.0-15.0) % MPV (7.9-10.8) fL Neut # (Auto) (1.5-6.6) 10^3/uL Lymph # (Auto) (1.5-3.5) 10^3/uL [place] # (Auto) (0.0-1.0) 10^3/uL Eos # (Auto) (0.0-0.7) 10^3/uL Baso # (Auto) (0.0-0.1) 10^3/uL Absolute Nucleated RBC x10^3/uL Nucleated RBC % /100WBC WBC Morphology (NORMAL) Platelet Estimate (NORMAL) Platelet Morphology (NORMAL) RBC Morph Micro Appear (NORMAL) Sodium (135-145) mmol/L Potassium (3.5-4.5) mmol/L Chloride (101-111) mmol/L Carbon Dioxide (21-32) mmol/L Anion Gap (6-13) BUN (6-20) mg/dL Creatinine (0.6-1.3) mg/dL Estimated GFR (MDRD) (>89) Glucose (74-104) mg/dL Calcium (8.5-10.3) mg/dL Iron (50-212) ug/dL TIBC (250-450) ug/dL % Saturation (20-50) % Transferrin (203-362) mg/dL Total Bilirubin (0.2-1.0) mg/dL Direct Bilirubin (0.03-0.18) mg/dL Indirect Bilirubin mg/dL AST (10-42) IU/L ALT (10-60) IU/L Alkaline Phosphatase (42-121) IU/L Lactate Dehydrogenase (140-271) IU/L Total Protein (6.4-8.9) g/dL Albumin (3.2-5.5) g/dL Globulin (2.1-4.2) g/dL Albumin/Globulin Ratio (1.0-2.2) Vitamin B12 (180-914) pg/mL Folate (5.90 - >24.8) ng/mL Nasal Screen MRSA (PCR) (NEGATIVE) Blood Type A NEGATIVE Blood Type Recheck A NEGATIVE Antibody Screen POSITIVE Antibody Identification Cold Antibody FARTUN, IgG Specific FARTUN, Polyspecific FARTUN, C3d Specific Crossmatch Conclusion and Plan Diagnosis Diagnosis: 1. Symptomatic anemia 2. Weakness 3. Melena Plan Plan: Admitted to hospitalist service and undergoing transfusion. Recommend evaluation for GI bleed with upper and lower endoscopy. Bowel prep is ordered to start this evening, currently on clears then NPO at midnight. Colonoscopy to be done Thursday after I finish clinic or Thursday AM. Trend h&h, continue supportive care and transfusion PRN by primary service The indications, alternatives, and risks of endoscopy, including but not limited to perforation requiring operative repair, bleeding requiring further intervention, and missed lesions, were discussed. The required conscious sedation was discussed along with its risks ([place], PE, CVA, ). The patient wishes to proceed with endoscopy. Isabel Yañez DO, FACS General Surgeon, [facility] Review of Systems Status of ROS: 10 or more systems reviewed and unremarkable except as noted in history and below Exam Constitutional normal general appearance and no apparent distress HENMT normocephalic Eyes PERRL and EOMs intact bilaterally Neck/C-Spine visual inspection normal Respiratory normal respiratory effort Cardiovascular normal heart rate noted Gastrointestinal abdomen normal to inspection Extremities normal to inspection Psychiatry mental status grossly normal and oriented x3 Skin skin color abnormal (pale)
[2024-03-21 17:48] LABS: MEAN CORPUSCULAR HEMOGLOBIN 45.3 pg (27.0-31.0); MEAN PLATELET VOLUME 12.9 fL (7.9-10.8); WHITE BLOOD COUNT 6.1 x10^3/uL (4.8-10.8)
[2024-03-21 17:55] LABS: HGB - HEMOGLOBIN 6.8 g/dL (12.0-16.0)
[2024-03-21 17:56] LABS: HCT - HEMATOCRIT 16.2 % (37.0-47.0)
[2024-03-21] MEDS: SODIUM/POTASSIUM/MAG SULFATES 354 ML PREP KIT PO SCH (18:17)
[2024-03-21 18:31] LABS: BILIRUBIN,DIRECT 0.29 mg/dL (0.03-0.18); BILIRUBIN,INDIRECT 1.5 mg/dL; BILIRUBIN,TOTAL 1.8 mg/dL (0.2-1.0)
[2024-03-21 22:54] LABS: MAGNESIUM 1.8 mg/dL (1.7-2.3); POTASSIUM 4.6 mmol/L (3.5-4.5)
[2024-03-21 23:01] LABS: HCT - HEMATOCRIT 23.6 % (37.0-47.0); HGB - HEMOGLOBIN 8.8 g/dL (12.0-16.0); MEAN CORPUSCULAR HEMOGLOBIN 37.4 pg (27.0-31.0); MEAN CORPUSCULAR HGB CONC 37.3 g/dL (32.0-36.0); MEAN CORPUSCULAR VOLUME 100.4 fL (81.0-99.0); RED BLOOD COUNT 2.35 10^6/uL (4.20-5.40); RED CELL DISTRIBUTION WIDTH 20.1 % (12.0-15.0); WHITE BLOOD COUNT 5.7 x10^3/uL (4.8-10.8)
[2024-03-22 05:08] LABS: CALCIUM, IONIZED 1.15 mmol/L (1.15-1.33); VBG PH 7.413 (7.31-7.41)
[2024-03-22 05:20] LABS: MAGNESIUM 1.7 mg/dL (1.7-2.3); PHOSPHORUS 3.1 mg/dL (2.5-5.0)
[2024-03-22 05:21] LABS: CALCIUM 8.7 mg/dL (8.5-10.3); CREATININE 0.8 mg/dL (0.6-1.3); POTASSIUM 4.1 mmol/L (3.5-4.5)
[2024-03-22 06:28] LABS: BASOPHILS % (AUTO) 1.8 %; EOSINOPHILS % (AUTO) 4.8 %; HCT - HEMATOCRIT 32.5 % (37.0-47.0); HGB - HEMOGLOBIN 11.4 g/dL (12.0-16.0); LYMPHOCYTES % (AUTO) 24.4 %; MEAN CORPUSCULAR HEMOGLOBIN 31.5 pg (27.0-31.0); MEAN CORPUSCULAR HGB CONC 35.1 g/dL (32.0-36.0); MEAN CORPUSCULAR VOLUME 89.8 fL (81.0-99.0); MONOCYTES % (AUTO) 12.9 %; RED BLOOD COUNT 3.62 10^6/uL (4.20-5.40); RED CELL DISTRIBUTION WIDTH 14.6 % (12.0-15.0); WHITE BLOOD COUNT 4.4 x10^3/uL (4.8-10.8)
[2024-03-22 06:31] LABS: ABNORMAL LYMPHS % (MANUAL) 0 %
[2024-03-22 07:25] LABS: PLATELET MORPHOLOGY PLATELET CLUMPING (NORMAL)
[2024-03-22 07:27] LABS: PLATELET ESTIMATE, MANUAL NORMAL (130-450,000) (NORMAL)
[2024-03-22 07:34] LABS: BASOPHILS % (MANUAL) 2 %; EOSINOPHILS # (MANUAL) 0.2 10^3/uL (0-0.7); LYMPHOCYTES % (MANUAL) 13 %; MONOCYTES # (MANUAL) 0.9 10^3/uL (0.0-1.0)
[2024-03-22 07:35] LABS: BAND NEUTROPHILS % (MANUAL) 4 %; BASOPHILS # (MANUAL) 0.1 10^3/uL (0-0.1); DIFFERENTIAL COMMENT MANUAL DIFFERENTIAL; LYMPHOCYTES # (MANUAL) 1.1 10^3/uL (1.5-3.5); NEUTROPHILS # (MANUAL) 2.2 10^3/uL (1.5-6.6); RBC MORPHOLOGY (MULTIPLE) 1+ ANISOCYTOSIS (NORMAL); REACTIVE LYMPHS % (MANUAL) 11 %
[2024-03-22] MEDS: polyethylene glycoL 3350 17 GM PACKET PO STA (08:38)
--- NOTE | 2024-03-22 09:21 | PROVIDER PROGRESS NOTE ---
Subjective General Admit Date: 03/21/24 Other Other Information/Narrative: 4U PRBC yesterday, hgb 3.6 --> 11.4. Remains hemodynamically normal. Feels better. Has completed full bowel prep, stools are liquid brown this AM. Hospitalist giving more miralax. Review of Systems Status of ROS: 10 or more systems reviewed and unremarkable except as noted in history and below Exam Constitutional normal general appearance and no apparent distress HENMT normocephalic Eyes PERRL and EOMs intact bilaterally Neck/C-Spine visual inspection normal Respiratory normal respiratory effort Cardiovascular normal heart rate noted Gastrointestinal abdomen normal to inspection Extremities normal to inspection Psychiatry mental status grossly normal and oriented x3 Skin skin color abnormal (pale) Image Laboratory Results - last 24 hr 03/20/24 03/20/24 03/20/24 14:43 14:43 14:43 WBC RBC Hgb Hct MCV MCH MCHC RDW Plt Count MPV Neut # (Auto) Lymph # (Auto) [place] # (Auto) Eos # (Auto) Baso # (Auto) Absolute Nucleated RBC Total Counted Band Neuts % (Manual) Reactive Lymphs % (Man) Abnorm Lymph % (Manual) Nucleated RBC % Neutrophils # (Manual) Lymphocytes # (Manual) Monocytes # (Manual) Eosinophils # (Manual) Basophils # (Manual) Differential Comment Platelet Estimate Platelet Morphology RBC Morph Micro Appear VBG pH Ionized Calcium Sodium Potassium Chloride Carbon Dioxide Anion Gap BUN Creatinine Estimated GFR (MDRD) Glucose Calcium Phosphorus Magnesium Total Bilirubin Direct Bilirubin Indirect Bilirubin Lactate Dehydrogenase Blood Type A NEGATIVE Antibody Screen POSITIVE Antibody Identification Cold Antibody Anti-E Warm Auto Antibody FARTUN, IgG Specific POSITIVE FARTUN, Polyspecific POSITIVE FARTUN, C3d Specific POSITIVE Crossmatch See Detail 03/21/24 03/21/24 03/22/24 17:20 22:33 04:54 WBC 6.1 5.7 4.4 L RBC 1.50 L 2.35 L 3.62 L Hgb 6.8 L* 8.8 L 11.4 L Hct 16.2 L* 23.6 L 32.5 L MCV 108.0 H 100.4 H 89.8 MCH 45.3 H 37.4 H 31.5 H MCHC 42.0 H 37.3 H 35.1 RDW TNP 20.1 H 14.6 Plt Count TNP BUILDING ESTIMATOR MPV 12.9 H TNP Neut # (Auto) BUILDING ESTIMATOR Lymph # (Auto) BUILDING ESTIMATOR [place] # (Auto) BUILDING ESTIMATOR Eos # (Auto) BUILDING ESTIMATOR Baso # (Auto) BUILDING ESTIMATOR Absolute Nucleated RBC BUILDING ESTIMATOR Total Counted 100 Band Neuts % (Manual) 4 Reactive Lymphs % (Man) 11 Abnorm Lymph % (Manual) 0 Nucleated RBC % BUILDING ESTIMATOR Neutrophils # (Manual) 2.2 Lymphocytes # (Manual) 1.1 L Monocytes # (Manual) 0.9 Eosinophils # (Manual) 0.2 Basophils # (Manual) 0.1 Differential Comment MANUAL DIFFERENTIAL Platelet Estimate NORMAL (130-450,000) Platelet Morphology PLATELET CLUMPING RBC Morph Micro Appear 1+ ANISOCYTOSIS VBG pH 7.413 H Ionized Calcium 1.15 Sodium 133 L Potassium 4.6 H 4.1 Chloride 105 Carbon Dioxide 23 Anion Gap 5.0 L BUN 12 Creatinine 0.8 Estimated GFR (MDRD) 70 L Glucose 99 Calcium 8.7 Phosphorus 3.1 Magnesium 1.8 1.7 Total Bilirubin 1.8 H Direct Bilirubin 0.29 H Indirect Bilirubin 1.5 Lactate Dehydrogenase 214 Blood Type Antibody Screen Antibody Identification FARTUN, IgG Specific FARTUN, Polyspecific FARTUN, C3d Specific Crossmatch Impression/Plan Problem List (1) Blood loss anemia: (2) Weakness: (3) Symptomatic anemia: Plan 73yoF admitted 03/20 with symptomatic anemia (weakness, hgb 3.6) and dark stools, concerning for GIB. Hgb up to 11.4 s/p 4U PRBC, HD normal. Consented evaluation with upper and lower endoscopy, discussed with patient and daughter. The indications, alternatives, and risks of endoscopy, including but not limited to perforation requiring operative repair, bleeding requiring further intervention, and missed lesions, were discussed. The required conscious sedation was discussed along with its risks ([place], PE, CVA, ). The patient wishes to proceed with endoscopy. - Bowel prep completed, additional Miralax this AM - NPO unti procedure - EGD and diagnostic colonoscopy at 11:45 today - Remainder of care per primary service Isabel Yañez DO, ESTEFANIA General Surgeon, [facility]
--- NOTE | 2024-03-22 09:46 | ANESTHESIA PROCEDURE NOTE ---
Pre-Anesthesia VS, & Labs Diagnosis Surgical Diagnosis:: anemia Procedure Procedure: EGD, colonoscopy Vitals Vital Signs: Temp Pulse Resp BP Pulse Ox O2 Flow Rate 37.0 C 85 20 135/86 H 98 2 03/22/24 08:00 03/22/24 09:00 03/22/24 09:00 03/22/24 09:00 03/22/24 09:00 03/21/24 18:00 NPO NPO: Other (prep this am) Is Patient ?: No Lab Results Current Lab Results: Laboratory Tests 03/22/24 04:54: WBC 4.4 L, RBC 3.62 L, Hgb 11.4 L, Hct 32.5 L, MCV 89.8, MCH 31.5 H, MCHC 35.1, RDW 14.6, Plt Count BODY SHOP WORKER, Neut # (Auto) BODY SHOP WORKER, Lymph # (Auto) B[employer] SHOP WORKER, [place] # (Auto) B[employer] SHOP WORKER, Eos # (Auto) B[employer] SHOP WORKER, Baso # (Auto) B[employer] SHOP WORKER, Absolute Nucleated RBC B[employer] SHOP WORKER, Total Counted 100, Band Neuts % (Manual) 4, Reactive Lymphs % (Man) 11, Abnorm Lymph % (Manual) 0, Nucleated RBC % BODY SHOP WORKER, Neutrophils # (Manual) 2.2, Lymphocytes # (Manual) 1.1 L, Monocytes # (Manual) 0.9, Eosinophils # (Manual) 0.2, Basophils # (Manual) 0.1, Differential Comment MANUAL DIFFERENTIAL, Platelet Estimate NORMAL (130-450,000), Platelet Morphology PLATELET CLUMPING, RBC Morph Micro Appear 1+ ANISOCYTOSIS, VBG pH 7.413 H, Ionized Calcium 1.15, Sodium 133 L , Potassium 4.1, Chloride 105, Carbon Dioxide 23, Anion Gap 5.0 L, BUN 12, Creatinine 0.8, Estimated GFR (MDRD) 70 L, Glucose 99, Calcium 8.7, Phosphorus 3.1, Magnesium 1.7 03/21/24 22:33: WBC 5.7, RBC 2.35 L, Hgb 8.8 L, Hct 23.6 L, MCV 100.4 H, MCH 37.4 H, MCHC 37.3 H, RDW 20.1 H, Plt Count , MPV TNP, Potassium 4.6 H, Magnesium 1.8 03/21/24 17:20: WBC 6.1, RBC 1.50 L, Hgb 6.8 L*, Hct 16.2 L*, MCV 108.0 H, MCH 45.3 H, MCHC 42.0 H, RDW TNP, Plt Count TNP, MPV 12.9 H, Total Bilirubin 1.8 H, Direct Bilirubin 0.29 H, Indirect Bilirubin 1.5, Lactate Dehydrogenase 214 03/21/24 05:25: Specimen Type BLOOD, WBC 5.0, RBC 1.14 L, Hgb 3.6 L*, Hct 10.0 L*, MCV 109.9 H, MCH 31.6 H, MCHC 36.0, RDW 14.7, MPV 12.5 H, Neut # (Auto) 3.3, Lymph # (Auto) 0.8 L, [place] # (Auto) 0.8, Eos # (Auto) 0.1, Baso # (Auto) 0.0, Absolute Nucleated RBC 0.00, Nucleated RBC % 0.0, WBC Morphology NORMAL APPEARANCE, Platelet Estimate NORMAL (130-450,000), Platelet Morphology PLATELET CLUMPING, RBC Morph Micro Appear NORMAL APPEARANCE, Sodium 131 L, Potassium 3.5, Chloride 101, Carbon Dioxide 25, Anion Gap 5.0 L, BUN 14, Creatinine 0.8, E stimated GFR (MDRD) 70 L, Glucose 136 H, Calcium 8.5, Iron 194, TIBC 265, % Saturation 73 H, Transferrin 189 L, Total Bilirubin 1.1 H, Direct Bilirubin 0.15, Indirect Bilirubin 1.0, AST 12, ALT 6 L, Alkaline Phosphatase 53, Lactate Dehydrogenase 185, Total Protein 6.4, Albumin 3.2, Globulin 3.2, Albumin/Globulin Ratio 1.0, Vitamin B12 608, Folate 10.0 03/21/24 02:00: Hgb 3.6 L*, Hct 10.2 L* 03/20/24 21:24: Hgb 4.0 L*, Hct 11.0 L* 03/20/24 14:43: Antibody Identification Warm Auto Antibody, FARTUN, IgG Specific POSITIVE, FARTUN, Polyspecific POSITIVE, FARTUN, C3d Specific POSITIVE, Crossmatch See Detail 03/20/24 14:43: Antibody Identification Anti-E 03/20/24 14:43: Blood Type A NEGATIVE, Antibody Screen POSITIVE, Antibody Identification Cold Antibody 03/20/24 14:10: WBC 7.3, RBC 1.42 L, Hgb 5.0 L*, Hct 13.2 L*, MCV 93.0, MCH 35.2 H, MCHC 37.9 H, RDW 16.0 H, Plt Count , Neut # (Auto) Not Reportable, Lymph # (Auto) Not Reportable, [place] # (Auto) Not Reportable, Eos # (Auto) Not Reportable, Baso # (Auto) Not Reportable, Absolute Nucleated RBC Not Reportable, Total Counted 100, Band Neuts % (Manual) 0, Abnorm Lymph % (Manual) 0, Nucleated RBC % Not Reportable, Neutrophils # (Manual) 6.4, Lymphocytes # (Manual) 0.4 L, Monocytes # (Manual) 0.4, Eosinophils # (Manual) 0.0, Basophils # (Manual) 0.0, Differential Comment MANUAL DIFFERENTIAL, Platelet Estimate NORMAL (130- 450,000), Platelet Morphology PLATELET CLUMPING, RBC Morph Micro Appear NORMAL APPEARANCE 03/20/24 13:50: PT 13.1 H, INR 1.2, APTT 21.2 L, Sodium 129 L, Potassium 3.7, C hloride 96 L, Carbon Dioxide 26, Anion Gap 7.0, BUN 19, Creatinine 1.0, E stimated GFR (MDRD) 54 L, Glucose 148 H, Calcium 9.9, Phosphorus 3.3, Magnesium 0.9 L*, Total Bilirubin 1.4 H, AST 14, ALT 9 L, Alkaline Phosphatase 66, Total Protein 7.7, Albumin 3.9, Globulin 3.8, Albumin/Globulin Ratio 1.0, Lipase 27, Blood Type Recheck A NEGATIVE 03/22/24 04:54 03/22/24 04:54 Meds/Allgy Home Medications Ambulatory Orders Medication Instructions Recorded Confirmed cyclobenzaprine 10 mg tablet 10 mg PO DAILY PRN Spasms 11/23/13 03/20/24 sumatriptan succinate 6 mg/0.5 mL 100 mg ORAL BID PRN Migraine 11/23/13 03/20/24 subcutaneous solution valacyclovir 500 mg tablet 500 mg ORAL DAILY 11/23/13 03/20/24 metoprolol tartrate 25 mg tablet 25 mg PO BID 03/20/24 03/20/24 dextroamphetamine-amphetamine ER 30 mg PO DAILY 03/21/24 03/21/24 30 mg 24hr capsule,extend release (Adderall XR) multivitamin 1 tab PO DAILY 03/21/24 03/21/24 propranolol 10 mg tablet 10 - 20 mg PO TID PRN anxiety 03/21/24 03/21/24 trazodone 100 mg tablet 100 mg PO HS 03/21/24 03/21/24 Allergies Allergies Allergy/AdvReac Type Severity Reaction Status Date / Time lovastatin Allergy Severe Palpitations/Dry Verified 03/20/24 13:27 mouth/ Confusion Sulfa (Sulfonamide Allergy Intermediate Rash/Hives Verified 03/20/24 13:27 Antibiotics) albuterol Allergy Unknown Verified 03/20/24 13:27 ciprofloxacin (From Cipro) Allergy Rash Verified 03/20/24 13:27 levofloxacin (From Levaquin) Allergy Rash Verified 03/20/24 13:27 prednisone Allergy Unknown Verified 03/20/24 13:27 acetaminophen (From Percocet) AdvReac Headache Verified 03/20/24 13:27 bupropion (From Wellbutrin) AdvReac Anxiety Verified 03/20/24 13:27 hydromorphone AdvReac Headache Verified 03/20/24 13:27 nitrofurantoin AdvReac Nausea Verified 03/20/24 13:27 oxycodone (From Percocet) AdvReac Headache Verified 03/20/24 13:27 lamictal AdvReac Severe Rapid Uncoded 03/18/24 15:25 heart rate Percocet AdvReac Severe Migraines Uncoded 03/18/24 15:25 PFSH Medical History Medical History (Updated 03/21/24 @ 17:50 by Isabel Yañez DO) Paroxysmal atrial fibrillation Osteoarthritis Weakness Constipation History of Bravo's esophagus Anemia Surgical History Surgical History (Updated 03/21/24 @ 17:49 by Isabel Yañez DO) History of ovarian cystectomy History of lumbar fusion (~06/05/15) L4-5 History of esophagogastroduodenoscopy (EGD) 2013 (ann), 2016, 2019 (barretts), 2019 History of arthroscopic knee surgery 2 ACL replacement /1 meniscus tear History of tubal ligation History of tonsillectomy Social History Social History (Updated 03/20/24 @ 14:02 by Ghazala Fernandez RN) Smoking Status: Former smoker If you are a former smoker, when did you quit? (Date/Year): 2014 Number of Years Smoked: 28 How many cigarettes a day do you smoke? (20 cigarettes=1 Pk): 6 Second hand tobacco smoke exposure: No Do you dip or chew tobacco?: No Do you vape?: No Patient requests smoking cessation consult: No Initiate information on smoking cessation: No Living arrangement: At home Living Condition: With family Relationship: Level: Independent Do you feel safe in your home environment?: Yes Suffered physical, verbal, emotional, or financial abuse?: No History of Abuse: No Substance Use: former substance user Substance Use Details: Marijuana POLST Patient has POLST: No Anesthesia Exam (Expanded) Exam General: Alert, Oriented x3 and Cooperative Dental: WNL Mouth Opening: Greater than 4 Fingerbreadths Neck Mobility: Limited Mallampati classification: II (enlarged uvula sometimes chokes her, per patient) Thyromental Distance: greater than 6 cm Respiratory: Lungs clear Cardiovascular: Regular rate Plan Problem List (1) Blood loss anemia: (2) Weakness: (3) Symptomatic anemia: Plan 73yoF admitted 03/20 with symptomatic anemia (weakness, hgb 3.6) and dark stools, concerning for GIB. Hgb up to 11.4 s/p 4U PRBC, HD normal. Consented evaluation with upper and lower endoscopy, discussed with patient and daughter. The indications, alternatives, and risks of endoscopy, including but not limited to perforation requiring operative repair, bleeding requiring further intervention, and missed lesions, were discussed. The required conscious sedation was discussed along with its risks ([place], PE, CVA, ). The patient wishes to proceed with endoscopy. - Bowel prep completed, additional Miralax this AM - NPO unti procedure - EGD and diagnostic colonoscopy at 11:45 today - Remainder of care per primary service Isabel Yañez DO, ESTEFANIA General Surgeon, [facility] Plan Anesthesia Type: Total IV Consent for Procedure(s) Verified and Reviewed: Yes Code Status: Attempt Resuscitation ASA Classification ASA classification: 3-Severe systemic disease Is this case an emergency?: Yes
[2024-03-22] MEDS: polyethylene glycoL 3350 17 GM PACKET PO SCH (10:05)
[2024-03-22] MEDS: METOPROLOL TARTRATE 25 MG TABLET PO SCH (10:41)
--- NOTE | 2024-03-22 11:21 | PROVIDER PROGRESS NOTE ---
Subjective Subjective Subjective: Patient is a 73-year-old female with a history of anemia, GERD on omeprazole who presented due to worsening weakness, as well as black stools. She was found to have a hemoglobin of 5. This morning, she is doing better. She states that she had a rough night, she was going to the bathroom often. Stool is liquid, but a little brown in color. She received 4 units of packed red blood cells overnight. Plan is for colonoscopy and EGD today. Current Medications Current Medications Current Medications: Current Medications Generic Name Dose Route Start Last Admin Trade Name Freq PRN Reason Stop Dose Admin Acetaminophen 650 mg 03/20/24 17:12 03/21/24 22:13 Acetaminophen 325 Mg Tablet PO 650 mg Q4HR PRN Administration Pain 1 to 4, or Fever Diphenhydramine HCl 25 mg 03/20/24 23:12 03/21/24 04:39 Diphenhydramine Inj 50 Mg/Ml Vial IVP 25 mg Q6H PRN Administration Allergy Symptoms Dextrose/Sodium Chloride 1,000 mls @ 100 mls/hr 03/20/24 17:00 03/22/24 06:32 D5ns IV 100 mls/hr .Q10H DENIZ Administration Metoprolol Tartrate 25 mg 03/22/24 11:00 03/22/24 10:41 Metoprolol Tartrate 25 Mg Tablet PO 25 mg BID DENIZ Administration Ondansetron HCl 4 mg 03/20/24 17:12 03/22/24 10:43 Ondansetron Odt 4 Mg Tablet TL 4 mg Q6HR PRN Administration Nausea / Vomiting Polyethylene Glycol 17 gm 03/22/24 10:00 03/22/24 10:05 Polyethylene Glycol 3350 17 Gm Packet PO 17 gm DAILY DENIZ Administration Sodium Chloride 10 ml 03/20/24 17:12 Sodium Chloride Flush 0.9% 10 Ml Syringe IVP PRN PRN NEEDED PER PROVIDER ORDERS Sodium Chloride 10 ml 03/20/24 17:12 03/22/24 08:39 Sodium Chloride Flush 0.9% 10 Ml Syringe IVP 10 ml 0100,0900,1700 DENIZ Administration Tramadol HCl 50 mg 03/20/24 18:06 03/21/24 22:13 Tramadol 50 Mg Tablet PO 50 mg Q4HR PRN Administration Moderate Pain (Level 4-6) Trazodone HCl 50 mg 03/20/24 21:00 03/22/24 04:42 Trazodone 50 Mg Tablet PO Not Given QPM [facility] Objective Vital Signs/Intake & Output Reviewed Vital Signs: Yes Vital Signs: Vital Signs x48h Temp Pulse Pulse Resp BP BP Pulse Ox 03/22/24 10:41 84 135/87 H 03/22/24 10:00 87 19 149/83 H 99 03/22/24 09:00 85 20 135/86 H 98 03/22/24 08:00 98.6 F 85 24 149/78 H 98 03/22/24 07:00 81 19 146/77 H 97 03/22/24 06:00 80 18 138/80 H 97 03/22/24 05:00 98.6 F 79 18 118/74 96 03/22/24 04:00 79 14 131/74 H 96 Intake & Output: Intake & Output 03/19/24 03/20/24 03/21/24 03/22/24 23:59 23:59 23:59 23:59 Intake Total 1307 / 1307 3975 / 3975 1012 / 1012 Output Total 200 / 200 900 / 900 0 / 0 Balance 1107 / 1107 3075 / 3075 1012 / 1012 Weight (kg) 60 kg 68.5 kg 68 kg Objective General Appearance: positive No acute distress and Alert Eyes Bilateral: positive Normal inspection and PERRL ENT: positive ENT inspection nml Neck: positive Nml inspection and Trachea midline Respiratory: positive Chest non-tender and No respiratory distress Cardiovascular: positive Regular rate & rhythm and No murmur Abdomen: positive Non-tender and No organomegaly Skin: positive Color nml and No rash Extremities: positive Non-tender and Full ROM Neurologic/Psychiatric: positive Oriented x3 and CN's nml (2-12) Lab Results 03/22/24 04:54 03/22/24 04:54 Other Labs: Lab Results x24hrs 03/22/24 03/21/24 03/21/24 Range/Units 04:54 22:33 17:20 WBC 4.4 L 5.7 6.1 (4.8-10.8) x10^3/uL RBC 3.62 L 2.35 L 1.50 L (4.20-5.40) 10^6/uL Hgb 11.4 L 8.8 L 6.8 L* (12.0-16.0) g/dL Hct 32.5 L 23.6 L 16.2 L* (37.0-47.0) % MCV 89.8 100.4 H 108.0 H (81.0-99.0) fL MCH 31.5 H 37.4 H 45.3 H (27.0-31.0) pg MCHC 35.1 37.3 H 42.0 H (32.0-36.0) g/dL RDW 14.6 20.1 H TNP Plt Count ASTRONOMY DEPARTMENT CHAIR TNP MPV TNP 12.9 H (7.9-10.8) fL Neut # (Auto) ASTRONOMY DEPARTMENT CHAIR Lymph # (Auto) ASTRONOMY DEPARTMENT CHAIR [place] # (Auto) ASTRONOMY DEPARTMENT CHAIR Eos # (Auto) ASTRONOMY DEPARTMENT CHAIR Baso # (Auto) ASTRONOMY DEPARTMENT CHAIR Absolute Nucleated RBC ASTRONOMY DEPARTMENT CHAIR Total Counted 100 Band Neuts % (Manual) 4 (0 - 10) % Reactive Lymphs % (Man) 11 % Abnorm Lymph % (Manual) 0 % Nucleated RBC % ASTRONOMY DEPARTMENT CHAIR Neutrophils # (Manual) 2.2 (1.5-6.6) 10^3/uL Lymphocytes # (Manual) 1.1 L (1.5-3.5) 10^3/uL Monocytes # (Manual) 0.9 (0.0-1.0) 10^3/uL Eosinophils # (Manual) 0.2 (0-0.7) 10^3/uL Basophils # (Manual) 0.1 (0-0.1) 10^3/uL Differential Comment MANUAL DIFFERENTIAL Platelet Estimate NORMAL (130-450,000) (NORMAL) Platelet Morphology PLATELET CLUMPING (NORMAL) RBC Morph Micro Appear 1+ ANISOCYTOSIS (NORMAL) VBG pH 7.413 H (7.31-7.41) Ionized Calcium 1.15 (1.15-1.33) mmol/L Sodium 133 L (135-145) mmol/L Potassium 4.1 4.6 H (3.5-4.5) mmol/L Chloride 105 (101-111) mmol/L Carbon Dioxide 23 (21-32) mmol/L Anion Gap 5.0 L (6-13) BUN 12 (6-20) mg/dL Creatinine 0.8 (0.6-1.3) mg/dL Estimated GFR (MDRD) 70 L (>89) Glucose 99 (74-104) mg/dL Calcium 8.7 (8.5-10.3) mg/dL Phosphorus 3.1 (2.5-5.0) mg/dL Magnesium 1.7 1.8 (1.7-2.3) mg/dL Total Bilirubin 1.8 H (0.2-1.0) mg/dL Direct Bilirubin 0.29 H (0.03-0.18) mg/dL Indirect Bilirubin 1.5 mg/dL Lactate Dehydrogenase 214 (140-271) IU/L Blood Type Antibody Screen Antibody Identification FARTUN, IgG Specific FARTUN, Polyspecific FARTUN, C3d Specific Crossmatch 03/20/24 03/20/24 03/20/24 Range/Units 14:43 14:43 14:43 WBC (4.8-10.8) x10^3/uL RBC (4.20-5.40) 10^6/uL Hgb (12.0-16.0) g/dL Hct (37.0-47.0) % MCV (81.0-99.0) fL MCH (27.0-31.0) pg MCHC (32.0-36.0) g/dL RDW Plt Count MPV (7.9-10.8) fL Neut # (Auto) Lymph # (Auto) [place] # (Auto) Eos # (Auto) Baso # (Auto) Absolute Nucleated RBC Total Counted Band Neuts % (Manual) (0 - 10) % Reactive Lymphs % (Man) % Abnorm Lymph % (Manual) % Nucleated RBC % Neutrophils # (Manual) (1.5-6.6) 10^3/uL Lymphocytes # (Manual) (1.5-3.5) 10^3/uL Monocytes # (Manual) (0.0-1.0) 10^3/uL Eosinophils # (Manual) (0-0.7) 10^3/uL Basophils # (Manual) (0-0.1) 10^3/uL Differential Comment Platelet Estimate (NORMAL) Platelet Morphology (NORMAL) RBC Morph Micro Appear (NORMAL) VBG pH (7.31-7.41) Ionized Calcium (1.15-1.33) mmol/L Sodium (135-145) mmol/L Potassium (3.5-4.5) mmol/L Chloride (101-111) mmol/L Carbon Dioxide (21-32) mmol/L Anion Gap (6-13) BUN (6-20) mg/dL Creatinine (0.6-1.3) mg/dL Estimated GFR (MDRD) (>89) Glucose (74-104) mg/dL Calcium (8.5-10.3) mg/dL Phosphorus (2.5-5.0) mg/dL Magnesium (1.7-2.3) mg/dL Total Bilirubin (0.2-1.0) mg/dL Direct Bilirubin (0.03-0.18) mg/dL Indirect Bilirubin mg/dL Lactate Dehydrogenase (140-271) IU/L Blood Type A NEGATIVE Antibody Screen POSITIVE Antibody Identification Warm Auto Antibody Anti-E Cold Antibody FARTUN, IgG Specific POSITIVE FARTUN, Polyspecific POSITIVE FARTUN, C3d Specific POSITIVE Crossmatch See Detail Assessment/Plan Problem List (1) Blood loss anemia: Impression: Patient presented with hemoglobin of 3.6. Received 4 units of PRBCs, with resultant hemoglobin of 11.4. Xu test was positive. 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 transfer for anti-B cell therapy (primary CAD) vs. continued monitoring and follow up outpatient. Plan for EGD and colonoscopy today to rule out GI bleed. Colonoscopy showed bleeding duodenal ulcer; EGD showed erosive gatritis. Continue Carafate and Protonix. (2) Hemolytic anemia: Impression: See above. 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 Continue to trend. (4) Hypomagnesemia: Impression: Resolved, continue to trend. (5) Paroxysmal atrial fibrillation: Impression: Not on any anticoagulation due to history of anemia. Only on aspirin 81mg daily as an outpatient.
[2024-03-22] MEDS ORDERED: EPINEPHrine 1 MG/ML AMP ONE (12:27)
[2024-03-22] MEDS ORDERED: THROMBIN (RECOMBINANT) 5,000 UNIT VIAL TOP ONE (12:29)
--- NOTE | 2024-03-22 13:07 | OPERATIVE REPORT ---
Operative Report General Admit Date: 03/21/24 Procedure Data: Operation Date: 03/22/24 11:30 Proposed Procedures p Colonoscopy(Not Applicable) - Isabel Yañez DO s Esophagogastroduodenoscopy(Not Applicable) - Isabel Yañez DO Actual Procedures p Colonoscopy(Not Applicable) - Isabel Yañez DO s Esophagogastroduodenoscopy with biopsies(Not Applicable) - Isabel Yañez DO Pre-Op Diagnosis: symptomatic anemia, melena Anesthesia Type General Case Staff Anesthesia Provider: Wilner Benjamin Case Times Procedure Start: 03/22/24 12:01 Time out: 03/22/24 12:00 Pre-Op Diagnosis: symptomatic anemia Post Op Diagnosis: bleeding duodenal ulcer Other Other Information/Narrative: EGD: - actively bleeding ulcer in duodenal bulb - hemostasis gained with 2 clips - erosive gastritis - irregular z line - bile reflux --> BID PROTONIX 40mg; AVOID NSAIDS Colonoscopy: - no active colonic bleeding - ascending colitis? (biopsied) - few small polyps in rectosigmoid colon removed FORMAL ENDOSCOPY REPORTS TO BE UPLOADED Isabel Yañez DO, FACS General Surgeon, [facility]
--- NOTE | 2024-03-22 15:21 | ANESTHESIA POST OP EVALUATION ---
Anesthesia Post Eval Post Anesthesia Eval Vitals: Last Vital Signs Temp 37.0 C 03/22/24 14:00 Pulse 81 03/22/24 14:00 Resp 25 H 03/22/24 14:00 BP 107/57 L 03/22/24 14:00 Pulse Ox 96 03/22/24 14:00 O2 Flow Rate 2 03/21/24 18:00 CV Function Including HR & BP: Stable Pain Control: Satisfactory Nausea & Vomiting: Negative Mental Status: Baseline Respiratory Status: Airway Patent Hydration Status: Satisfactory Anesthesia Complications: None
[2024-03-22] MEDS: SUCRALFATE 1 GM/10 ML UDC PO SCH (18:05)
[2024-03-22] MEDS: PANTOPRAZOLE 40 MG VIAL IVP SCH (20:51)
[2024-03-22 22:19] LABS: HCT - HEMATOCRIT 22.9 % (37.0-47.0)
[2024-03-23 05:05] LABS: MAGNESIUM 1.4 mg/dL (1.7-2.3)
[2024-03-23 05:11] LABS: BUN - BLOOD UREA NITROGEN 11 mg/dL (6-20); CALCIUM 9.3 mg/dL (8.5-10.3); CARBON DIOXIDE - CO2 24 mmol/L (21-32); CHLORIDE 105 mmol/L (101-111); CREATININE 0.8 mg/dL (0.6-1.3); GFR - MDRD 70 (>89); GLUCOSE 93 mg/dL (74-104); IONIZED CALCIUM IF INDICATED NO; POTASSIUM 3.9 mmol/L (3.5-4.5); SODIUM 135 mmol/L (135-145)
[2024-03-23 05:27] LABS: HCT - HEMATOCRIT 23.7 % (37.0-47.0); HGB - HEMOGLOBIN 8.2 g/dL (12.0-16.0); MEAN CORPUSCULAR HEMOGLOBIN 30.9 pg (27.0-31.0); MEAN CORPUSCULAR HGB CONC 34.6 g/dL (32.0-36.0); MEAN CORPUSCULAR VOLUME 89.4 fL (81.0-99.0); NEUTROPHILS % (AUTO) 60.8 %; RED BLOOD COUNT 2.65 10^6/uL (4.20-5.40); RED CELL DISTRIBUTION WIDTH 14.6 % (12.0-15.0); WHITE BLOOD COUNT 5.1 x10^3/uL (4.8-10.8)
[2024-03-23 05:31] LABS: ABNORMAL LYMPHS % (MANUAL) 0 %; BAND NEUTROPHILS % (MANUAL) 0 %
[2024-03-23 06:10] LABS: BASOPHILS # (MANUAL) 0.1 10^3/uL (0-0.1); BASOPHILS % (MANUAL) 1 %; EOSINOPHILS # (MANUAL) 0.2 10^3/uL (0-0.7); LYMPHOCYTES # (MANUAL) 1.3 10^3/uL (1.5-3.5); LYMPHOCYTES % (MANUAL) 25 %; MONOCYTES # (MANUAL) 0.5 10^3/uL (0.0-1.0); NEUTROPHILS # (MANUAL) 3.1 10^3/uL (1.5-6.6)
[2024-03-23 06:11] LABS: PLATELET ESTIMATE, MANUAL DECREASED (<130,000) (NORMAL); PLATELET MORPHOLOGY PLATELET CLUMPING (NORMAL); RBC MORPHOLOGY (MULTIPLE) NORMAL APPEARANCE (NORMAL)
[2024-03-23 06:12] LABS: DIFFERENTIAL COMMENT MANUAL DIFFERENTIAL
[2024-03-23 07:58] LABS: BILIRUBIN,DIRECT 0.24 mg/dL (0.03-0.18); BILIRUBIN,INDIRECT 1.1 mg/dL; BILIRUBIN,TOTAL 1.3 mg/dL (0.2-1.0)
--- NOTE | 2024-03-23 10:51 | PROVIDER PROGRESS NOTE ---
Subjective General Admit Date: 03/21/24 Procedure Date: 03/22/24 Post Op Days: 1 Procedure Performed: EGD with intervention; Colonoscopy with polypectomy Other Other Information/Narrative: Upper and Lower endoscopy yesterday - actively bleeding duodenal ulcer clipped. Started of Protonix and carafate. Hgb stable since then with no further transfusions (8.0 to 8.2). Remains HD normal. No nausea or abdominal pain this AM, tolerated clears for dinner and breakfast. Review of Systems Status of ROS: 10 or more systems reviewed and unremarkable except as noted in history and below Exam Constitutional normal general appearance and no apparent distress HENMT normocephalic Eyes PERRL and EOMs intact bilaterally Neck/C-Spine visual inspection normal Respiratory normal respiratory effort Cardiovascular normal heart rate noted Gastrointestinal abdomen normal to inspection Extremities normal to inspection Psychiatry mental status grossly normal and oriented x3 Skin skin color normal Image Laboratory Results - last 24 hr 03/20/24 03/20/24 03/20/24 14:43 14:43 14:43 WBC RBC Hgb Hct MCV MCH MCHC RDW Plt Count MPV Neut # (Auto) Lymph # (Auto) [place] # (Auto) Eos # (Auto) Baso # (Auto) Absolute Nucleated RBC Total Counted Band Neuts % (Manual) Reactive Lymphs % (Man) Abnorm Lymph % (Manual) Nucleated RBC % Neutrophils # (Manual) Lymphocytes # (Manual) Monocytes # (Manual) Eosinophils # (Manual) Basophils # (Manual) Differential Comment Platelet Estimate Platelet Morphology RBC Morph Micro Appear VBG pH Ionized Calcium Sodium Potassium Chloride Carbon Dioxide Anion Gap BUN Creatinine Estimated GFR (MDRD) Glucose Calcium Phosphorus Magnesium Total Bilirubin Direct Bilirubin Indirect Bilirubin Lactate Dehydrogenase Blood Type A NEGATIVE Antibody Screen POSITIVE Antibody Identification Cold Antibody Anti-E Warm Auto Antibody FARTUN, IgG Specific POSITIVE FARTUN, Polyspecific POSITIVE FARTUN, C3d Specific POSITIVE Crossmatch See Detail 03/21/24 03/21/24 03/22/24 17:20 22:33 04:54 WBC 6.1 5.7 4.4 L RBC 1.50 L 2.35 L 3.62 L Hgb 6.8 L* 8.8 L 11.4 L Hct 16.2 L* 23.6 L 32.5 L MCV 108.0 H 100.4 H 89.8 MCH 45.3 H 37.4 H 31.5 H MCHC 42.0 H 37.3 H 35.1 RDW TNP 20.1 H 14.6 Plt Count TNP HOUSING LIAISON MPV 12.9 H TNP Neut # (Auto) HOUSING LIAISON Lymph # (Auto) HOUSING LIAISON Luna # (Auto) HOUSING LIAISON Eos # (Auto) HOUSING LIAISON Baso # (Auto) HOUSING LIAISON Absolute Nucleated RBC HOUSING LIAISON Total Counted 100 Band Neuts % (Manual) 4 Reactive Lymphs % (Man) 11 Abnorm Lymph % (Manual) 0 Nucleated RBC % HOUSING LIAISON Neutrophils # (Manual) 2.2 Lymphocytes # (Manual) 1.1 L Monocytes # (Manual) 0.9 Eosinophils # (Manual) 0.2 Basophils # (Manual) 0.1 Differential Comment MANUAL DIFFERENTIAL Platelet Estimate NORMAL (130-450,000) Platelet Morphology PLATELET CLUMPING RBC Morph Micro Appear 1+ ANISOCYTOSIS VBG pH 7.413 H Ionized Calcium 1.15 Sodium 133 L Potassium 4.6 H 4.1 Chloride 105 Carbon Dioxide 23 Anion Gap 5.0 L BUN 12 Creatinine 0.8 Estimated GFR (MDRD) 70 L Glucose 99 Calcium 8.7 Phosphorus 3.1 Magnesium 1.8 1.7 Total Bilirubin 1.8 H Direct Bilirubin 0.29 H Indirect Bilirubin 1.5 Lactate Dehydrogenase 214 Blood Type Antibody Screen Antibody Identification FARTUN, IgG Specific FARTUN, Polyspecific FARTUN, C3d Specific Crossmatch Laboratory Results - last 24 hr 03/20/24 03/21/24 03/22/24 14:43 17:20 21:55 WBC RBC Hgb 8.0 L Hct 22.9 L MCV MCH MCHC RDW Plt Count Neut # (Auto) Lymph # (Auto) [place] # (Auto) Eos # (Auto) Baso # (Auto) Absolute Nucleated RBC Total Counted Band Neuts % (Manual) Abnorm Lymph % (Manual) Nucleated RBC % Neutrophils # (Manual) Lymphocytes # (Manual) Monocytes # (Manual) Eosinophils # (Manual) Basophils # (Manual) Differential Comment Platelet Estimate Platelet Morphology RBC Morph Micro Appear Haptoglobin <10 L Sodium Potassium Chloride Carbon Dioxide Anion Gap BUN Creatinine Estimated GFR (MDRD) Glucose Calcium Ionized Calcium Magnesium Total Bilirubin Direct Bilirubin Indirect Bilirubin Lactate Dehydrogenase Crossmatch See Detail 03/23/24 04:28 WBC 5.1 RBC 2.65 L Hgb 8.2 L Hct 23.7 L MCV 89.4 MCH 30.9 MCHC 34.6 RDW 14.6 Plt Count HOUSING LIAISON Neut # (Auto) Not Reportable Lymph # (Auto) Not Reportable [place] # (Auto) Not Reportable Eos # (Auto) Not Reportable Baso # (Auto) Not Reportable Absolute Nucleated RBC Not Reportable Total Counted 100 Band Neuts % (Manual) 0 Abnorm Lymph % (Manual) 0 Nucleated RBC % Not Reportable Neutrophils # (Manual) 3.1 Lymphocytes # (Manual) 1.3 L Monocytes # (Manual) 0.5 Eosinophils # (Manual) 0.2 Basophils # (Manual) 0.1 Differential Comment MANUAL DIFFERENTIAL Platelet Estimate DECREASED (<130,000) Platelet Morphology PLATELET CLUMPING RBC Morph Micro Appear NORMAL APPEARANCE Haptoglobin Sodium 135 Potassium 3.9 Chloride 105 Carbon Dioxide 24 Anion Gap 6.0 BUN 11 Creatinine 0.8 Estimated GFR (MDRD) 70 L Glucose 93 Calcium 9.3 Ionized Calcium NO Magnesium 1.4 L Total Bilirubin 1.3 H Direct Bilirubin 0.24 H Indirect Bilirubin 1.1 Lactate Dehydrogenase 242 Crossmatch Impression/Plan Problem List (1) Blood loss anemia: (2) GI bleed: Qualifiers: GI bleed type/associated pathology: unspecified gastrointestinal hemorrhage type Qualified Code(s): K92.2 - Gastrointestinal hemorrhage, unspecified (3) Bleeding duodenal ulcer: (4) Bile reflux gastritis: (5) Erosive gastritis: (6) History of Bravo's esophagus: (7) History of colon polyps: Plan 73yoF admitted 03/20 with symptomatic anemia (weakness, hgb 3.6) and dark stools, concerning for GIB. 03/21 Appropriate response to 4U PRBC, remaining HD normal. 03/22 EGD and Colonoscopy - actively bleeding duodenal ulcer clipped x2 with hemostasis, and hgb stable therafter. Endoscopy also with evidence of bile reflux, erosive gastritis, and irregular z line (biopsies pending, note history of Barretts); diverticulosis, colonic polyps. - Continue carafate and BID Protonix for minimum 3 mo upon discharge - patient to follow up with be for endoscopic biopsy results and to schedule repeat egd in 3mo to ensure duodenal ulcer healing/rule out malignancy - avoid all NSIADS, tobacco and etoh - Remainder of care and dispo as per primary team, call with further questions Isabel Yañez DO, FACS General Surgeon, [facility]
[2024-03-23] MEDS: valACYclovir 500 MG TABLET PO SCH (10:52)
--- NOTE | 2024-03-23 11:02 | PROVIDER PROGRESS NOTE ---
Subjective Subjective Subjective: Patient is a 73-year-old female with a history of anemia, GERD on omeprazole who presented due to worsening weakness, as well as black stools. She was found to have a hemoglobin of 5. This morning, she is doing better. Her weakness is improving. She has had no more bloody bowel movements overnight. Current Medications Current Medications Current Medications: Current Medications Generic Name Dose Route Start Last Admin Trade Name Freq PRN Reason Stop Dose Admin Acetaminophen 650 mg 03/20/24 17:12 03/22/24 20:51 Acetaminophen 325 Mg Tablet PO 650 mg Q4HR PRN Administration Pain 1 to 4, or Fever Metoprolol Tartrate 25 mg 03/22/24 11:00 03/23/24 08:47 Metoprolol Tartrate 25 Mg Tablet PO 25 mg BID DENIZ Administration Ondansetron HCl 4 mg 03/20/24 17:12 03/22/24 10:43 Ondansetron Odt 4 Mg Tablet TL 4 mg Q6HR PRN Administration Nausea / Vomiting Pantoprazole Sodium 40 mg 03/22/24 21:00 03/23/24 08:47 Pantoprazole 40 Mg Vial IVP 40 mg BID DENIZ Administration Sodium Chloride 10 ml 03/20/24 17:12 Sodium Chloride Flush 0.9% 10 Ml Syringe IVP PRN PRN NEEDED PER PROVIDER ORDERS Sodium Chloride 10 ml 03/20/24 17:12 03/23/24 08:48 Sodium Chloride Flush 0.9% 10 Ml Syringe IVP 10 ml 0100,0900,1700 DENIZ Administration Sucralfate 1 gm 03/22/24 16:00 03/23/24 10:52 Sucralfate 1 Gm/10 Ml Udc PO 1 gm 0700,1100,1600,2200 DENIZ Administration Trazodone HCl 50 mg 03/20/24 21:00 03/22/24 20:52 Trazodone 50 Mg Tablet PO 50 mg QPM DENIZ Administration Valacyclovir HCl 500 mg 03/23/24 10:00 03/23/24 10:52 Valacyclovir 500 Mg Tablet PO 500 mg DAILY DENIZ Administration Objective Vital Signs/Intake & Output Reviewed Vital Signs: Yes Vital Signs: Vital Signs x48h Temp Pulse Pulse Resp BP BP Pulse Ox 03/23/24 10:00 95 20 108/55 L 95 03/23/24 09:00 91 20 124/63 94 03/23/24 08:47 90 129/73 03/23/24 08:00 97.7 F 85 23 129/73 96 03/23/24 07:00 84 20 134/73 H 96 03/23/24 06:00 79 22 134/75 H 96 03/23/24 05:00 77 15 124/66 95 03/23/24 04:45 99.3 F 03/23/24 04:00 74 19 117/66 95 Intake & Output: Intake & Output 03/20/24 03/21/24 03/22/24 03/23/24 23:59 23:59 23:59 23:59 Intake Total 1307 / 1307 3975 / 3975 2462 / 2462 1218 / 1218 Output Total 200 / 200 900 / 900 700 / 700 1200 / 1200 Balance 1107 / 1107 3075 / 3075 1762 / 1762 Weight (kg) 60 kg 68.5 kg 68 kg 69 kg Objective General Appearance: positive No acute distress and Alert Eyes Bilateral: positive Normal inspection and PERRL ENT: positive ENT inspection nml Neck: positive Nml inspection and Trachea midline Respiratory: positive Chest non-tender and No respiratory distress Cardiovascular: positive Regular rate & rhythm and No murmur Abdomen: positive Non-tender and No organomegaly Skin: positive Color nml and No rash Extremities: positive Non-tender and Full ROM Neurologic/Psychiatric: positive Oriented x3 and CN's nml (2-12) Lab Results 03/23/24 04:28 03/23/24 04:28 Other Labs: Lab Results x24hrs 03/23/24 03/22/24 03/21/24 Range/Units 04:28 21:55 17:20 WBC 5.1 (4.8-10.8) x10^3/uL RBC 2.65 L (4.20-5.40) 10^6/uL Hgb 8.2 L 8.0 L (12.0-16.0) g/dL Hct 23.7 L 22.9 L (37.0-47.0) % MCV 89.4 (81.0-99.0) fL MCH 30.9 (27.0-31.0) pg MCHC 34.6 (32.0-36.0) g/dL RDW 14.6 (12.0-15.0) % Plt Count SERVICE CENTER 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 Neut # (Auto) Not Reportable Lymph # (Auto) Not Reportable [place] # (Auto) Not Reportable Eos # (Auto) Not Reportable Baso # (Auto) Not Reportable Absolute Nucleated RBC Not Reportable Total Counted 100 Band Neuts % (Manual) 0 (0 - 10) % Abnorm Lymph % (Manual) 0 % Nucleated RBC % Not Reportable Neutrophils # (Manual) 3.1 (1.5-6.6) 10^3/uL Lymphocytes # (Manual) 1.3 L (1.5-3.5) 10^3/uL Monocytes # (Manual) 0.5 (0.0-1.0) 10^3/uL Eosinophils # (Manual) 0.2 (0-0.7) 10^3/uL Basophils # (Manual) 0.1 (0-0.1) 10^3/uL Differential Comment MANUAL DIFFERENTIAL Platelet Estimate DECREASED (<130,000) (NORMAL) Platelet Morphology PLATELET CLUMPING (NORMAL) RBC Morph Micro Appear NORMAL APPEARANCE (NORMAL) Haptoglobin <10 L (42-346) mg/dL Sodium 135 (135-145) mmol/L Potassium 3.9 (3.5-4.5) mmol/L Chloride 105 (101-111) mmol/L Carbon Dioxide 24 (21-32) mmol/L Anion Gap 6.0 (6-13) BUN 11 (6-20) mg/dL Creatinine 0.8 (0.6-1.3) mg/dL Estimated GFR (MDRD) 70 L (>89) Glucose 93 (74-104) mg/dL Calcium 9.3 (8.5-10.3) mg/dL Ionized Calcium NO Magnesium 1.4 L (1.7-2.3) mg/dL Total Bilirubin 1.3 H (0.2-1.0) mg/dL Direct Bilirubin 0.24 H (0.03-0.18) mg/dL Indirect Bilirubin 1.1 mg/dL Lactate Dehydrogenase 242 (140-271) IU/L Crossmatch 03/20/24 Range/Units 14:43 WBC (4.8-10.8) x10^3/uL RBC (4.20-5.40) 10^6/uL Hgb (12.0-16.0) g/dL Hct (37.0-47.0) % MCV (81.0-99.0) fL MCH (27.0-31.0) pg MCHC (32.0-36.0) g/dL RDW (12.0-15.0) % Plt Count Neut # (Auto) Lymph # (Auto) [place] # (Auto) Eos # (Auto) Baso # (Auto) Absolute Nucleated RBC Total Counted Band Neuts % (Manual) (0 - 10) % Abnorm Lymph % (Manual) % Nucleated RBC % Neutrophils # (Manual) (1.5-6.6) 10^3/uL Lymphocytes # (Manual) (1.5-3.5) 10^3/uL Monocytes # (Manual) (0.0-1.0) 10^3/uL Eosinophils # (Manual) (0-0.7) 10^3/uL Basophils # (Manual) (0-0.1) 10^3/uL Differential Comment Platelet Estimate (NORMAL) Platelet Morphology (NORMAL) RBC Morph Micro Appear (NORMAL) Haptoglobin (42-346) mg/dL Sodium (135-145) mmol/L Potassium (3.5-4.5) mmol/L Chloride (101-111) mmol/L Carbon Dioxide (21-32) mmol/L Anion Gap (6-13) BUN (6-20) mg/dL Creatinine (0.6-1.3) mg/dL Estimated GFR (MDRD) (>89) Glucose (74-104) mg/dL Calcium (8.5-10.3) mg/dL Ionized Calcium Magnesium (1.7-2.3) mg/dL Total Bilirubin (0.2-1.0) mg/dL Direct Bilirubin (0.03-0.18) mg/dL Indirect Bilirubin mg/dL Lactate Dehydrogenase (140-271) IU/L Crossmatch See Detail Diagnostic Imaging Diagnostic Imaging Results: positive Final report reviewed Assessment/Plan Problem List (1) Blood loss anemia: Impression: Patient presented with hemoglobin of 3.6. Received 4 units of PRBCs, with resultant hemoglobin of 11.4. Was then 8 after colonoscopy/EGD; stable this morning. Xu test was positive. 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 Construction Site Manager command and control officer at [facility] spoken with - advised to follow up outpatient. Colonoscopy showed bleeding duodenal ulcer; EGD showed erosive gatritis. Continue Carafate and Protonix for 6 months. Follow up with surgery outpatient. (2) Hemolytic anemia: Impression: See above. 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 Patient is eating more; will likely d/c at end of the day. Continue to trend. (4) Hypomagnesemia: Impression: Resolved, continue to trend. (5) Paroxysmal atrial fibrillation: Impression: Not on any anticoagulation due to history of anemia. Only on aspirin 81mg daily as an outpatient. Will recheck hemoglobin in P.M. and resatart if stable.
[2024-03-23] MEDS: MAGNESIUM OXIDE 400 MG TABLET PO ONE (11:55)
--- NOTE | 2024-03-23 13:59 | PT Plan of Care ---
Medical/Surgical Past History Past History Medical History (Updated 03/23/24 @ 11:00 by Isabel Yañez DO) Paroxysmal atrial fibrillation Anemia Bleeding duodenal ulcer (~02/2024) Bile reflux gastritis (~02/2024) Erosive gastritis (~02/2024) History of Bravo's esophagus Osteoarthritis Weakness Constipation History of colon polyps Surgical History (Updated 03/23/24 @ 10:55 by Isabel Yañez DO) History of esophagogastroduodenoscopy (EGD) (~03/22/24) 2023: bleeding duodenal ulcer, bile reflux gastritis [2014 (barretts), 2016, 2019 (barretts), 2020] History of colonoscopy with polypectomy (~03/22/24) diverticulosis History of lumbar fusion (~06/05/15) L4-5 History of arthroscopic knee surgery 2 ACL replacement /1 meniscus tear History of ovarian cystectomy History of tubal ligation History of tonsillectomy
[2024-03-23 16:59] LABS: HCT - HEMATOCRIT 22.9 % (37.0-47.0); HGB - HEMOGLOBIN 7.8 g/dL (12.0-16.0)
[2024-03-23] MEDS ORDERED: MELATONIN 3 MG TABLET PO SCH ×2 (18:00→19:00)
[2024-03-23] MEDS: MELATONIN 3 MG TABLET PO SCH (20:01)
[2024-03-24 05:48] LABS: BUN - BLOOD UREA NITROGEN 22 mg/dL (6-20); CALCIUM 9.3 mg/dL (8.5-10.3); CARBON DIOXIDE - CO2 26 mmol/L (21-32); CHLORIDE 102 mmol/L (101-111); CREATININE 0.7 mg/dL (0.6-1.3); GFR - MDRD 82 (>89); GLUCOSE 108 mg/dL (74-104); IONIZED CALCIUM IF INDICATED NO; POTASSIUM 3.9 mmol/L (3.5-4.5); SODIUM 133 mmol/L (135-145)
[2024-03-24 06:01] LABS: HCT - HEMATOCRIT 21.8 % (37.0-47.0); HGB - HEMOGLOBIN 7.8 g/dL (12.0-16.0)
[2024-03-24] MEDS: ASPIRIN EC 81 MG TABLET PO SCH (08:48)
[2024-03-24] MEDS: HYDROCORTISONE 1% CREAM 28 GM TUBE TOP SCH (08:49)
--- NOTE | 2024-03-24 12:39 | Discharge Summary ---
"Discharge Summary Admit Date: 04/20/24 Discharge Date: 03/26/24 Discharging Provider: Dr. Lakhwinder Osorio Primary Care Provider: Maribel Mccoy Code Status: Attempt Resuscitation Discharge Facility Name: Home DIAGNOSES Admission Diagnoses: Blood loss anemia Weakness Constipation Hyponatremia Hypomagnesemia GI bleed Paroxysmal atrial fibrillation Discharge Diagnoses with Status of Each Condition: Blood loss anemiapatient presented with hemoglobin of 3.6. Received 4 units of PRBCs with resulted hemoglobin of 11.4. Was then stable around 8 after colonoscopy/EGD. She needs to follow-up with the general surgeon, Dr. Yañez, in 3 months. Will continue Protonix 40 mg twice daily, as well as Carafate 4 times daily for 3 months. Hemolytic anemia Xu test was positive. 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 Assistant Merchandiser composition stone applicator at [facility] spoken with - advised to follow up outpatient. Hyponatremiastable. Hypomagnesemiaresolved Paroxysmal atrial fibrillationupon further review, the only documented episode of atrial fibrillation is the episode she had in the emergency room noted on telemetry on her last visit. At that time, she was not started on any anticoagulation due to anemia. She was advised to follow-up with a cardiologistI presume they will likely put her on a Holter monitor or an event monitor and monitor her atrial fibrillation burden, and talk about the risks and benefits of her being on a blood thinner. At this time, after further discussion with patient and her daughters, and the possible risks vs. benefits, we will we will discharge her without any blood thinners or baby aspirin. HPI History of Present Illness: Per Dr. Cerrato: This is a 73-year-old female with a past medical hx of anemia, Gerd, on omeprazole, parox. afib, not on anticoagulation who presents to ER with a complaint of worsening weakness, black stools and constipation. Pt states that she has been getting weaker in the last 2 weeks, had constipation, although she denies narcotics for pain or change in diet. Pt feels that her chest is heavy but denies chest pain. Pt denies nausea or vomitting. Pt confirms rapid weight loss of 6 pounds within the last few weeks. Pt also states that she has worsening chronic pain in back and neck. Laboratory Values in the ED indicated hemoglobin of 5.0 and Magnesium of 0.9, Sodium of 129. Chest x-ray is negative for any cardiopulmonary pathology. Surgery was consulted for urgent EGD and colonoscopy. Patient has Cold agglutinin blood antibodies which requires matchedFrom outside this facility.4 units RBCs were ordered. 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 Patient was scheduled for a colonoscopy for 03/21/2024. Patient is full code. CONSULTS | PROCEDURES Consultations: Surgery Procedures: Chest x-ray EGD Colonoscopy HOSPITAL COURSE Hospital Course: Patient is a 73-year-old female with a history of anemia, GERD, ?paroxysmal atrial fibrillation not on anticoagulation who presented with weakness, black stools, constipation. She noted weakness over the last 2 weeks. She also has some chronic pain in her back and neck. Her hemoglobin on admission was 3.6. She received 4 units of blood with improvement to 11.4. Her blood was Xu positive, and appears she may have a mixed hemolytic anemia picture. She had an EGD done which showed a bleeding duodenal ulcer which was clipped. Colonoscopy was also done which showed some polyps, and they were biopsied. Her hemoglobin dropped after the procedure. She went for repeat EGD, no active bleeding was noted. First, we discussed the importance of following up with a bell captain. She may have an underlying mixed hemolytic autoimmune anemia. Xu test was positive. 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 Assistant Merchandiser, Dr. Bea Ayala, who was requested by the family was spoken with. She does believe it is autoimmune hemolytic anemia, and will follow-up with her outpatient. However, within normal LDH, she does not believe that she is actively hemolyzing at this time. Scheduling is working on follow-up appointment for her in the outpatient setting. Secondly, we discussed the importance of following up with a environmental auditor. Likely, they will place an event monitor or Holter monitor on her, and measure her atrial fibrillation burden. At this time, I did discuss the risks and benefits of starting anticoagulation with her and her daughters. We have decided to hold off at this time. Thirdly, we discussed the importance of following up with the surgeon in approximately 3 months. We talked about how she will be taking Protonix twice a day, as well as Carafate 4 times a day for the next 3 months. She would need to follow-up with surgery to repeat the EGD. The above was explained to her and her daughters. Demonstrated understanding, and she was deemed stable for discharge home. PT and OT did see the patient, and recommended home care. This order was placed. ALLERGIES Allergies Allergy/AdvReac Type Severity Reaction Status Date / Time lovastatin Allergy Severe Palpitations/Dry Verified 03/20/24 13:27 mouth/ Confusion Sulfa (Sulfonamide Allergy Intermediate Rash/Hives Verified 03/20/24 13:27 Antibiotics) albuterol Allergy Unknown Verified 03/20/24 13:27 ciprofloxacin (From Cipro) Allergy Rash Verified 03/20/24 13:27 levofloxacin (From Levaquin) Allergy Rash Verified 03/20/24 13:27 prednisone Allergy Unknown Verified 03/20/24 13:27 acetaminophen (From Percocet) AdvReac Headache Verified 03/20/24 13:27 bupropion (From Wellbutrin) AdvReac Anxiety Verified 03/20/24 13:27 hydromorphone AdvReac Headache Verified 03/20/24 13:27 nitrofurantoin AdvReac Nausea Verified 03/20/24 13:27 oxycodone (From Percocet) AdvReac Headache Verified 03/20/24 13:27 lamictal AdvReac Severe Rapid Uncoded 03/18/24 15:25 heart rate Percocet AdvReac Severe Migraines Uncoded 03/18/24 15:25 MEDICATIONS Ambulatory Orders Medication Instructions Recorded Confirmed cyclobenzaprine 10 mg tablet 10 mg PO DAILY PRN Spasms 11/23/13 03/20/24 sumatriptan succinate 6 mg/0.5 mL 100 mg ORAL BID PRN Migraine 11/23/13 03/20/24 subcutaneous solution valacyclovir 500 mg tablet 500 mg ORAL DAILY 11/23/13 03/20/24 metoprolol tartrate 25 mg tablet 25 mg PO BID 03/20/24 03/20/24 dextroamphetamine-amphetamine ER 30 mg PO DAILY 03/21/24 03/21/24 30 mg 24hr capsule,extend release (Adderall XR) multivitamin 1 tab PO DAILY 03/21/24 03/21/24 propranolol 10 mg tablet 10 - 20 mg PO TID PRN anxiety 03/21/24 03/21/24 trazodone 100 mg tablet 100 mg PO HS 03/21/24 03/21/24 hydrocortisone-aloe vera 1 % 1 applic topical BID #14.2 grams 03/24/24 topical cream pantoprazole 40 mg tablet,delayed 40 mg PO BID 3 months #180 tabs 03/24/24 release (Protonix) sucralfate 1 gram tablet (Carafate) 1 g PO QID 3 months #360 tabs 03/24/24 aluminum-mag hydroxide-simethicone 30 ml PO Q6H 30 days #0 mL 03/26/24 200 mg-200 mg-20 mg/5 mL oral susp (Mag-Al Plus) PHYSICAL EXAM AT DISCHARGE General Appearance: positive No acute distress and Alert Eyes Bilateral: positive Normal inspection, PERRL and EOMI ENT: positive ENT inspection nml, Pharynx nml and No signs of dehydration Neck: positive Nml inspection, Thyroid nml and No JVD Respiratory: positive Chest non-tender, No respiratory distress and Breath sounds nml; negative Wheezes, Rales or Rhonchi Cardiovascular: positive Regular rate & rhythm, No murmur and No gallop Peripheral Pulses: positive 2+ Abdomen: positive Non-tender and No distention; negative Tenderness, Rebound, Hepatomegaly, Splenomegaly or Mass Back: positive Nml inspection; negative CVA tenderness (R) or CVA tenderness (L) Skin: positive Color nml, No rash, Warm and Dry Extremities: positive Non-tender, Full ROM and No pedal edema Neurologic/Psychiatric: positive Oriented x3 and Mood/affect nml LABS 03/26/24 16:30 03/26/24 03:15 DIAGNOSTIC IMAGING Diagnostic Imaging Results: Final report reviewed QUALITY (Female Hip Fx Only) Was patient sent home on osteoporosis medication?: No FOLLOW UP Follow Up: Follow up with primary care doctor. Follow up with bell captain. Follow up with surgeon. Follow up with environmental auditor. TIME SPENT Time Spent in Discharge (Minutes): 40 Discharge Plan Discharge Patient Disposition: 06 Home Health Service Condition: Stable Prescriptions: New hydrocortisone-aloe vera 1 % Cream 1 applic topical BID Qty: 14.2 0RF pantoprazole [Protonix] 40 mg tablet,delayed release (DR/EC) 40 mg PO BID 90 Days Qty: 180 0RF sucralfate [Carafate] 1 gram tablet 1 g PO QID 90 Days Qty: 360 0RF alum-mag hydroxide-simeth [Mag-Al Plus] 200-200-20 mg/5 mL Suspension 30 ml PO Q6H 30 Days Qty: 0 0RF Continued cyclobenzaprine 10 MG tablet 10 mg PO DAILY PRN (Reason: Spasms) Patient Comments: discontinued valacyclovir 500 MG tablet 500 mg ORAL DAILY sumatriptan succinate 6 MG/0.5 ML solution 100 mg ORAL BID PRN (Reason: Migraine) metoprolol tartrate 25 mg tablet 25 mg PO BID Patient Comments: take 1 tablet by mouth twice a day dextroamphetamine-amphetamine [Adderall XR] 30 mg capsule,extended release 24hr 30 mg PO DAILY Patient Comments: take 1 capsule by mouth once daily propranolol 10 mg tablet 10 - 20 mg PO TID PRN (Reason: anxiety) Patient Comments: take 1-2 tablets by mouth three times a day if needed for anxiety trazodone 100 mg tablet 100 mg PO HS Patient Comments: take 1 tablet by mouth if needed at bedtime multivitamin Tablet 1 tab PO DAILY Activity Restrictions: Activity as Tolerated Diet: Regular Health Concerns: You came in because you were feeling weak and we noticed that you had dark stools. You were found to have very low blood count. We did a scope from above and below. We noted that you have an ulcer in one of your small intestines. The surgeon was able to clip it and stop the bleeding. After the procedure, your hemoglobin (blood level) dropped again. You went for a repeat upper EGD. No active bleeding was noted. We talked about a few things: First of all, it will be important to follow-up with a environmental auditor. They will likely put you on an event monitor to see your burden or to see how often you're going into this abnormal heart rhythm called atrial fibrillation. We talked about why we recommend people be on blood thinner when they have this abnormal heart rhythm as it can cause increased risk of clots and strokes. However, in your case, we are not sure how often you are going in and out of this rhythm. Secondly, your blood levels still remain low. As such we are going to send you home without a blood thinner at this time until you follow up with your environmental auditor. Secondly, your Xu test was positive. 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 Assistant Merchandiser, Dr. Bea Ayala, who was requested by your family was spoken with. She does believe it is autoimmune hemolytic anemia, and will follow-up with you in the outpatient. Thirdly, we talked about how you should follow-up with your surgeon, Dr. Yañez, in 3 months. In the meantime please continue your Protonix twice a day and your Carafate 4 times a day, as well as the Mylanta. Lastly, your blood pressure has been on the lower end. You can take half your dose of metoprolol (you take it 25 mg twice a day; I would change it to 12.5mg twice a day, i.e. half a tab twice a day), until you see your PCP, and they can recheck your blood pressure and advise on any changes. If you note any more dark stools, tiredness, fatigue, bleeding, large bruises, lightheadedness, dizziness, please return to the emergency room. We are glad you are feeling better, thank you for allowing us to take care of you. And happy early birthday! I'm glad you'll be at home with your loved ones to celebrate. Print Language: Israeli Patient Instructions: Surgery Anesthesia After Stand Alone Forms: PCP List Follow-up Care: Bea Ayala [Other] (Assistant Merchandiser ) Maribel Mccoy ARNP [Primary Care Provider] - 1 Week (Came in for GI bleed. D/c on carafate and protonix (had duodenal ulcer on scope). Please provide referrals to hematology (may have a mixed hemolytic autoimmune anemia picture) and cardiology (to assess for atrial fibrillation burden and see if you need anticoagulation). Thank you !) Isabel Yañez DO [Provider Admit Priv/Credential] - 05/18/24"
[2024-03-24 14:20] LABS: HGB - HEMOGLOBIN 7.2 g/dL (12.0-16.0)
[2024-03-24 14:23] LABS: HCT - HEMATOCRIT 16.5 % (37.0-47.0)
--- NOTE | 2024-03-24 14:28 | PROVIDER PROGRESS NOTE ---
Subjective Subjective Subjective: Patient is a 73-year-old female with a history of anemia, GERD on omeprazole who presented due to worsening weakness, as well as black stools. She was found to have a hemoglobin of 5. This morning, she is doing better. Her weakness is improving. She has had no more bloody bowel movements overnight. Current Medications Current Medications Current Medications: Current Medications Generic Name Dose Route Start Last Admin Trade Name Freq PRN Reason Stop Dose Admin Acetaminophen 650 mg 03/20/24 17:12 03/23/24 19:52 Acetaminophen 325 Mg Tablet PO 650 mg Q4HR PRN Administration Pain 1 to 4, or Fever Hydrocortisone 1 applic 03/24/24 09:00 03/24/24 08:49 Hydrocortisone 1% Cream 28 Gm Tube TOP 1 applic BID DENIZ Administration Melatonin 3 mg 03/23/24 21:00 03/23/24 20:01 Melatonin 3 Mg Tablet PO 3 mg QPM DENIZ Administration Metoprolol Tartrate 25 mg 03/22/24 11:00 03/24/24 08:48 Metoprolol Tartrate 25 Mg Tablet PO 25 mg BID DENIZ Administration Ondansetron HCl 4 mg 03/20/24 17:12 03/22/24 10:43 Ondansetron Odt 4 Mg Tablet TL 4 mg Q6HR PRN Administration Nausea / Vomiting Pantoprazole Sodium 40 mg 03/22/24 21:00 03/24/24 08:49 Pantoprazole 40 Mg Vial IVP 40 mg BID DENIZ Administration Sodium Chloride 10 ml 03/20/24 17:12 Sodium Chloride Flush 0.9% 10 Ml Syringe IVP PRN PRN NEEDED PER PROVIDER ORDERS Sodium Chloride 10 ml 03/20/24 17:12 03/24/24 08:49 Sodium Chloride Flush 0.9% 10 Ml Syringe IVP 10 ml 0100,0900,1700 DENIZ Administration Sucralfate 1 gm 03/22/24 16:00 03/24/24 10:50 Sucralfate 1 Gm/10 Ml Udc PO 1 gm 0700,1100,1600,2200 DENIZ Administration Trazodone HCl 50 mg 03/20/24 21:00 03/23/24 19:52 Trazodone 50 Mg Tablet PO 50 mg QPM DENIZ Administration Valacyclovir HCl 500 mg 03/23/24 10:00 03/24/24 08:48 Valacyclovir 500 Mg Tablet PO 500 mg DAILY DENIZ Administration Objective Vital Signs/Intake & Output Reviewed Vital Signs: Yes Vital Signs: Vital Signs x48h Temp Pulse Pulse Resp BP BP Pulse Ox 03/24/24 08:48 97 115/65 03/24/24 08:47 97.9 F 97 16 115/65 96 Intake & Output: Intake & Output 03/21/24 03/22/24 03/23/24 03/24/24 23:59 23:59 23:59 23:59 Intake Total 3975 / 3975 2462 / 2462 2858 / 2858 820 / 820 Output Total 900 / 900 700 / 700 1850 / 1850 1750 / 1750 Balance 3075 / 3075 1762 / 1762 1008 / 1008 -930 / -930 Weight (kg) 68.5 kg 68 kg 69 kg 69 kg Objective General Appearance: positive No acute distress and Alert Eyes Bilateral: positive Normal inspection and PERRL ENT: positive ENT inspection nml Neck: positive Nml inspection and Trachea midline Respiratory: positive Chest non-tender and No respiratory distress Cardiovascular: positive Regular rate & rhythm and No murmur Abdomen: positive Non-tender and No organomegaly Skin: positive Color nml and No rash Extremities: positive Non-tender and Full ROM Neurologic/Psychiatric: positive Oriented x3 and CN's nml (2-12) Lab Results 03/24/24 14:13 03/24/24 05:22 Other Labs: Lab Results x24hrs 03/24/24 03/24/24 03/24/24 Range/Units 14:13 07:40 05:22 Hgb 7.2 L 7.8 L (12.0-16.0) g/dL Hct 16.5 L* 21.8 L (37.0-47.0) % Sodium 133 L (135-145) mmol/L Potassium 3.9 (3.5-4.5) mmol/L Chloride 102 (101-111) mmol/L Carbon Dioxide 26 (21-32) mmol/L Anion Gap 5.0 L (6-13) BUN 22 H (6-20) mg/dL Creatinine 0.7 (0.6-1.3) mg/dL Estimated GFR (MDRD) 82 L (>89) Glucose 108 H (74-104) mg/dL Calcium 9.3 (8.5-10.3) mg/dL Ionized Calcium NO Blood Type A NEGATIVE Antibody Screen POSITIVE FARTUN, IgG Specific POSITIVE FARTUN, Polyspecific POSITIVE FARTUN, C3d Specific POSITIVE Crossmatch See Detail 03/23/24 03/20/24 Range/Units 16:03 14:43 Hgb 7.8 L (12.0-16.0) g/dL Hct 22.9 L (37.0-47.0) % Sodium (135-145) mmol/L Potassium (3.5-4.5) mmol/L Chloride (101-111) mmol/L Carbon Dioxide (21-32) mmol/L Anion Gap (6-13) BUN (6-20) mg/dL Creatinine (0.6-1.3) mg/dL Estimated GFR (MDRD) (>89) Glucose (74-104) mg/dL Calcium (8.5-10.3) mg/dL Ionized Calcium Blood Type Antibody Screen FARTUN, IgG Specific FARTUN, Polyspecific FARTUN, C3d Specific Crossmatch See Detail Diagnostic Imaging Diagnostic Imaging Results: positive Final report reviewed Assessment/Plan Problem List (1) Blood loss anemia: Impression: Patient presented with hemoglobin of 3.6. Received 4 units of PRBCs, with resultant hemoglobin of 11.4. Was then 8 after colonoscopy. Patient has had no more bloody bowel movements, however, Hb dropped to 7.2. She received one dose of aspirin; will hold indefinitely. Will transfuse one unit. If no further bleeding, will d/c with close follow up with PCP to recheck Hb in one week. Xu test was positive. 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 Utility Plant Operative construction management instructor at [facility] spoken with - advised to follow up outpatient. Colonoscopy showed bleeding duodenal ulcer; EGD showed erosive gatritis. Continue Carafate and Protonix for 6 months. Follow up with surgery outpatient. (2) Hemolytic anemia: Impression: See above. 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 Patient is eating more; will likely d/c at end of the day. Continue to trend. (4) Hypomagnesemia: Impression: Resolved, continue to trend. (5) Paroxysmal atrial fibrillation: Impression: Upon further review, the only documented episode of atrial fibrillation is the episode she had in the emergency room noted on telemetry on her last visit. At that time, she was not started on any anticoagulation due to anemia. She was advised to follow-up with a cardiologistI presume they will likely put her on a Holter monitor or an event monitor and monitor her atrial fibrillation burden, and talk about the risks and benefits of her being on a blood thinner. At this time, after further discussion with patient and her daughters, and the possible risks vs. benefits, we will we will discharge her without any blood thinners or baby aspirin.
[2024-03-24] MEDS: traMADol 50 MG TABLET PO PRN (16:48)
--- NOTE | 2024-03-24 18:48 | PROVIDER PROGRESS NOTE ---
Subjective General Admit Date: 03/21/24 Procedure Date: 03/22/24 Post Op Days: 2 Procedure Performed: EGD with intervention; Colonoscopy with polypectomy Other Other Information/Narrative: Notified by Dr. Osorio that patient hgb dropped to 7.2, however has not had any further BMs. Still being evaluated for hemolytic anemia. Dr. Osorio will notify surgery if any further BM or concern for need to repeat EGD to assess for hemostasis at the duodenal ulcer. Biopsy results from EGD and colonoscopy returned - c/w GERD/gastritis without evidence of H pylori, barretts, or any malignancy. Colonic biopsies without precancerous polyps or microscopic colitis. Continue plan as below unless contacted by Hospitalist otherwise. 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 03/21 Appropriate response to 4U PRBC, remaining HD normal. 03/22 EGD and Colonoscopy - actively bleeding duodenal ulcer clipped x2 with hemostasis, and hgb stable therafter. Endoscopy also with evidence of bile reflux, erosive gastritis, and irregular z line; diverticulosis, colonic polyps. - Continue carafate and BID Protonix for minimum 3 mo upon discharge - avoid all NSIADS, tobacco and etoh - Remainder of care and dispo as per primary team, call with further questions - f/u with me in 3 mo for repeat EGD to ensure ulcer healing Isabel Yañez DO, FACS General Surgeon, [facility]
[2024-03-24] MEDS: MELATONIN 3 MG TABLET PO SCH (20:37)
[2024-03-24] MEDS: traZODone 50 MG TABLET PO SCH (20:38)
[2024-03-24] MEDS ORDERED: [UNRECOGNIZED DRUG - OTHER] CONTINU113 SCH (21:00)
--- NOTE | 2024-03-25 04:04 | PROVIDER PROGRESS NOTE ---
Carbon Furnace Operator Note Carbon Furnace Operator Note Carbon Furnace Operator Note: per rn - "Pt in for anemia. Our lab has received the blood tests and is awaiting authorization from the provider to transfuse the presumed compatible PRBCs. " ok to transfuse 1 unit now
[2024-03-25 07:53] LABS: PATHOLOGIST SLIDE COMMENTS SEE SEPARATE REPORT
[2024-03-25 09:56] LABS: ALBUMIN 3.3 g/dL (3.2-5.5); ALBUMIN/GLOBULIN RATIO 1.1 (1.0-2.2); BILIRUBIN,DIRECT 0.26 mg/dL (0.03-0.18); BILIRUBIN,INDIRECT 1.4 mg/dL; BILIRUBIN,TOTAL 1.7 mg/dL (0.2-1.0); CALCIUM 9.1 mg/dL (8.5-10.3); CREATININE 0.8 mg/dL (0.6-1.3); POTASSIUM 3.3 mmol/L (3.5-4.5); TOTAL PROTEIN 6.4 g/dL (6.4-8.9)
[2024-03-25 10:01] LABS: WHITE BLOOD COUNT 6.2 x10^3/uL (4.8-10.8)
[2024-03-25 10:22] LABS: HCT - HEMATOCRIT 21.4 % (37.0-47.0); HGB - HEMOGLOBIN 7.3 g/dL (12.0-16.0); RED BLOOD COUNT 2.45 10^6/uL (4.20-5.40)
[2024-03-25 10:23] LABS: MEAN CORPUSCULAR HGB CONC 34.1 g/dL (32.0-36.0); MEAN CORPUSCULAR VOLUME 87.3 fL (81.0-99.0); RED CELL DISTRIBUTION WIDTH 14.6 % (12.0-15.0)
[2024-03-25 10:48] LABS: PLT - PLATELET COUNT 140 10^3/uL (130-450)
--- NOTE | 2024-03-25 13:07 | PROVIDER PROGRESS NOTE ---
Progress Note Progress Note Progress Note: General Surgery Progress Note S: Comfortable. No nausea or emesis. Small brown bowel motion this morning. O: VSS, afeb. Hgb went from 7.2 - 7.3 after one unit of blood this morning. CTA yesterday did not show evidence of active GI bleeding A: Clinically stable. H&H did not elevate after the blood transfusion as expected. P: Continue to monitor H&H. Repeat EGD as indicated by laboratory trends and/or clinical evidence of recurrent bleeding. Anthony Lyles MD, FACS General Surgery Service
--- NOTE | 2024-03-25 13:36 | PROVIDER PROGRESS NOTE ---
Subjective Subjective Subjective: Patient is a 73-year-old female with a history of anemia, GERD on omeprazole who presented due to worsening weakness, as well as black stools. She was found to have a hemoglobin of 5. Her rash is improving. Her weakness is improving. She was receiving the unit of blood that was ordered yesterday. Per nurse, she had a bloody bowel movement overnight. There was no korey blood, but it was dark. Later this afternoon, she had another bloody bowel movement. First, I did speak with the chief controller center that she will be following up with outpatient, Dr. Bea [id number]. We reviewed her labs. She does think that she may have an underlying autoimmune hemolytic anemia. However with her LDH being within normal limits, it is unlikely that she is hemolyzing right now. The reason for her anemia is likely her her bleeding. After the unit of blood, her hemoglobin remained about the same, I did speak with Dr. Gant, the surgeon; plan is to repeat hemoglobin around 5 PM. If it is continuing to downtrend, he will take her for repeat EGD today to assess the bleeding duodenal ulcer. Also spoke with the blood bank. We do have 1 unit of blood available here. I have requested 2 more units to be ordered. They will take about 6 - 7 hours to get here. I did speak with her daughter, Nanette, and updated her about the above. The patient is understandably upset, but understands why she needs to stay here for further management and treatment. Current Medications Current Medications Current Medications: Current Medications Generic Name Dose Route Start Last Admin Trade Name Anishq PRN Reason Stop Dose Admin Acetaminophen 650 mg 03/20/24 17:12 03/24/24 20:37 Acetaminophen 325 Mg Tablet PO 650 mg Q4HR PRN Administration Pain 1 to 4, or Fever Hydrocortisone 1 applic 03/24/24 09:00 03/25/24 08:36 Hydrocortisone 1% Cream 28 Gm Tube TOP 1 applic BID DENIZ Administration Melatonin 3 mg 03/24/24 15:35 03/24/24 20:37 Melatonin 3 Mg Tablet PO 3 mg QPM DENIZ Administration Metoprolol Tartrate 25 mg 03/22/24 11:00 03/25/24 08:35 Metoprolol Tartrate 25 Mg Tablet PO 25 mg BID DENIZ Administration Ondansetron HCl 4 mg 03/20/24 17:12 03/22/24 10:43 Ondansetron Odt 4 Mg Tablet TL 4 mg Q6HR PRN Administration Nausea / Vomiting Pantoprazole Sodium 40 mg 03/22/24 21:00 03/25/24 08:36 Pantoprazole 40 Mg Vial IVP 40 mg BID DENIZ Administration Sodium Chloride 10 ml 03/20/24 17:12 Sodium Chloride Flush 0.9% 10 Ml Syringe IVP PRN PRN NEEDED PER PROVIDER ORDERS Sodium Chloride 10 ml 03/20/24 17:12 03/25/24 08:36 Sodium Chloride Flush 0.9% 10 Ml Syringe IVP 10 ml 0100,0900,1700 DENZI Administration Sucralfate 1 gm 03/22/24 16:00 03/25/24 11:12 Sucralfate 1 Gm/10 Ml Udc PO 1 gm 0700,1100,1600,2200 DENIZ Administration Tramadol HCl 50 mg 03/24/24 15:34 03/25/24 06:29 Tramadol 50 Mg Tablet PO 50 mg Q6HR PRN Administration Moderate Pain (Level 4-6) Trazodone HCl 50 mg 03/24/24 19:00 03/24/24 22:19 Trazodone 50 Mg Tablet PO Not Given QPM DENIZ Valacyclovir HCl 500 mg 03/23/24 10:00 03/25/24 08:35 Valacyclovir 500 Mg Tablet PO 500 mg DAILY DENIZ Administration Objective Vital Signs/Intake & Output Reviewed Vital Signs: Yes Vital Signs: Vital Signs x48h Temp Pulse Pulse Resp BP BP Pulse Ox 03/25/24 08:35 97.7 F 82 16 118/59 L 98 03/25/24 08:35 85 118/59 L 03/25/24 07:45 97.5 F L 88 16 105/57 L 99 Intake & Output: Intake & Output 03/22/24 03/23/24 03/24/24 03/25/24 23:59 23:59 23:59 23:59 Intake Total 2462 / 2462 2858 / 2858 1060 / 1060 240 / 240 Output Total 700 / 700 1850 / 1850 1750 / 1750 500 / 500 Balance 1762 / 1762 1008 / 1008 -690 / -690 -260 / -260 Weight (kg) 68 kg 69 kg 69 kg 68 kg Objective General Appearance: positive No acute distress and Alert Eyes Bilateral: positive Normal inspection and PERRL ENT: positive ENT inspection nml Neck: positive Nml inspection and Trachea midline Respiratory: positive Chest non-tender and No respiratory distress Cardiovascular: positive Regular rate & rhythm and No murmur Abdomen: positive Non-tender and No organomegaly Skin: positive Color nml and No rash Extremities: positive Non-tender and Full ROM Neurologic/Psychiatric: positive Oriented x3 and CN's nml (2-12) Lab Results 03/25/24 09:24 03/25/24 09:24 Other Labs: Lab Results x24hrs 03/25/24 03/24/24 03/24/24 Range/Units 09:24 14:13 07:40 WBC 6.2 (4.8-10.8) x10^3/uL RBC 2.45 L (4.20-5.40) 10^6/uL Hgb 7.3 L 7.2 L (12.0-16.0) g/dL Hct 21.4 L 16.5 L* (37.0-47.0) % MCV 87.3 (81.0-99.0) fL MCH 30.0 (27.0-31.0) pg MCHC 34.1 (32.0-36.0) g/dL RDW 14.6 (12.0-15.0) % Plt Count 140 Pathologist Review Sodium 132 L (135-145) mmol/L Potassium 3.3 L (3.5-4.5) mmol/L Chloride 100 L (101-111) mmol/L Carbon Dioxide 26 (21-32) mmol/L Anion Gap 6.0 (6-13) BUN 26 H (6-20) mg/dL Creatinine 0.8 (0.6-1.3) mg/dL Estimated GFR (MDRD) 70 L (>89) Glucose 134 H (74-104) mg/dL Calcium 9.1 (8.5-10.3) mg/dL Total Bilirubin 1.7 H (0.2-1.0) mg/dL Direct Bilirubin 0.26 H (0.03-0.18) mg/dL Indirect Bilirubin 1.4 mg/dL AST 11 (10-42) IU/L ALT 7 L (10-60) IU/L Alkaline Phosphatase 52 (42-121) IU/L Lactate Dehydrogenase 210 (140-271) IU/L Total Protein 6.4 (6.4-8.9) g/dL Albumin 3.3 (3.2-5.5) g/dL Globulin 3.1 (2.1-4.2) g/dL Albumin/Globulin Ratio 1.1 (1.0-2.2) Blood Type Antibody Screen Antibody Identification Warm Auto Antibody FARTUN, IgG Specific POSITIVE FARTUN, Polyspecific POSITIVE FARTUN, C3d Specific POSITIVE Crossmatch See Detail 03/24/24 03/24/24 03/21/24 Range/Units 07:40 07:40 05:25 WBC (4.8-10.8) x10^3/uL RBC (4.20-5.40) 10^6/uL Hgb (12.0-16.0) g/dL Hct (37.0-47.0) % MCV (81.0-99.0) fL MCH (27.0-31.0) pg MCHC (32.0-36.0) g/dL RDW (12.0-15.0) % Plt Count Not Reportable Pathologist Review SEE SEPARATE REPORT Sodium (135-145) mmol/L Potassium (3.5-4.5) mmol/L Chloride (101-111) mmol/L Carbon Dioxide (21-32) mmol/L Anion Gap (6-13) BUN (6-20) mg/dL Creatinine (0.6-1.3) mg/dL Estimated GFR (MDRD) (>89) Glucose (74-104) mg/dL Calcium (8.5-10.3) mg/dL Total Bilirubin (0.2-1.0) mg/dL Direct Bilirubin (0.03-0.18) mg/dL Indirect Bilirubin mg/dL AST (10-42) IU/L ALT (10-60) IU/L Alkaline Phosphatase (42-121) IU/L Lactate Dehydrogenase (140-271) IU/L Total Protein (6.4-8.9) g/dL Albumin (3.2-5.5) g/dL Globulin (2.1-4.2) g/dL Albumin/Globulin Ratio (1.0-2.2) Blood Type A NEGATIVE Antibody Screen POSITIVE Antibody Identification Anti-E Cold Antibody FARTUN, IgG Specific FARTUN, Polyspecific FARTUN, C3d Specific Crossmatch Diagnostic Imaging Diagnostic Imaging Results: positive Final report reviewed Assessment/Plan Problem List (1) Blood loss anemia: Impression: Patient presented with hemoglobin of 3.6. Received 4 units of PRBCs, with resultant hemoglobin of 11.4. Was then 8 after colonoscopy. Patient has had no more bloody bowel movements, however, Hb dropped to 7.2. She received one dose of aspirin; will hold indefinitely. Will transfuse one unit. Repeat hemoglobin is about the same. She has also had 2 bowel movements that were dark with some possible blood in it, per nurse. General surgeon, Dr. Gant spoken with. Will repeat hemoglobin around 5 PM. If downtrending, we will likely repeat EGD. Xu test was positive. 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 Parakeet Raiser, Dr. Bea Ayala, who was requested by the family was spoken with. She does believe it is autoimmune hemolytic anemia, and will follow-up with her outpatient. However, within normal LDH, she does not believe that she is actively hemolyzing at this time. Scheduling is working on follow-up appointment for her in the outpatient setting. Colonoscopy showed bleeding duodenal ulcer; EGD showed erosive gatritis. Continue Carafate and Protonix for 6 months. Follow up with surgery outpatient. (2) Hemolytic anemia: Impression: See above. 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 Patient is eating more; will likely d/c at end of the day. Continue to trend. (4) Hypomagnesemia: Impression: Resolved, continue to trend. (5) Paroxysmal atrial fibrillation: Impression: Upon further review, the only documented episode of atrial fibrillation is the episode she had in the emergency room noted on telemetry on her last visit. At that time, she was not started on any anticoagulation due to anemia. She was advised to follow-up with a cardiologistI presume they will likely put her on a Holter monitor or an event monitor and monitor her atrial fibrillation burden, and talk about the risks and benefits of her being on a blood thinner. At this time, after further discussion with patient and her daughters, and the possible risks vs. benefits, we will we will discharge her without any blood thinners or baby aspirin.
[2024-03-25 15:09] LABS: HCT - HEMATOCRIT 19.3 % (37.0-47.0)
[2024-03-25 15:11] LABS: HGB - HEMOGLOBIN 6.7 g/dL (12.0-16.0)
[2024-03-25] MEDS: LACTATED RINGERS 1,000 ML IV SCH ×2 (15:17→19:10)
--- NOTE | 2024-03-25 16:32 | PROVIDER PROGRESS NOTE ---
Progress Note Progress Note Progress Note: General Surgery Pre-op Note S: Elen has passed increasing amount of black stool this afternoon. She feels bloated. She is not nauseated and has not had emesis. O: VSS, afeb; AAO; Cooperative; Skin appears pale; Abdomen is soft, non-tender, but slightly distended. Repeat H&H at 1500 - Hgb 19.3/Hgb 6.7 A: I suspect she has recurrence of her UGI bleed Plan: 1) Start transfusion of PRBC 2) Urgent EGD Consent: Audra has been counseled for the procedure, it's indications, risks, benefits and expected outcome. We specifically discussed risks associated with anesthesia and she understands that if we can not control the UGI bleed with endoscopic maneuvers she will undergo exploratory laparotomy with oversew of her bleeding ulcer site. We also discussed the need for continuation of blood transfusions with its risks and benefits. Audra understands the content of our discussion and requests that we proceed with the procedure as outlined. Anthony Lyles MD, FACS General Surgery Service
[2024-03-25] MEDS ORDERED: THROMBIN (RECOMBINANT) 5,000 UNIT VIAL TOP ONE (16:39)
[2024-03-25] MEDS ORDERED: EPINEPHrine 1 MG/ML AMP ONE (16:39)
[2024-03-25] MEDS ORDERED: PROPOFOL 200 MG/20 ML VIAL IVP ONE (16:52)
[2024-03-25] MEDS ORDERED: SUCCINYLCHOLINE 200 MG/10 ML VIAL ONE (16:52)
[2024-03-25] MEDS ORDERED: fentaNYL 100 MCG/2 ML VIAL ONE (16:53)
--- NOTE | 2024-03-25 16:57 | ANESTHESIA PROCEDURE NOTE ---
Pre-Anesthesia VS, & Labs Diagnosis Surgical Diagnosis:: anemia GI Bleed Procedure Procedure: EGD Vitals Vital Signs: Temp Pulse Resp BP Pulse Ox O2 Flow Rate 37 C 87 18 101/57 L 99 2 03/25/24 16:52 03/25/24 16:52 03/25/24 16:52 03/25/24 16:52 03/25/24 16:52 03/21/24 18:00 Height (in): 5 ft 7 in Weight (kg): 68 kg Body Mass Index: 23.4 BMI Classification: Normal NPO NPO: >8 hours Is Patient ?: Not Applicable Lab Results Current Lab Results: Laboratory Tests 03/25/24 14:54: Hgb 6.7 L*, Hct 19.3 L* 03/25/24 09:24: WBC 6.2, RBC 2.45 L, Hgb 7.3 L, Hct 21.4 L, MCV 87.3, MCH 30.0, MCHC 34.1, RDW 14.6, Plt Count 140, Sodium 132 L, Potassium 3.3 L, Chloride 100 L, Carbon Dioxide 26, Anion Gap 6.0, BUN 26 H, Creatinine 0.8, Estimated GFR (MDRD) 70 L, Glucose 134 H, Calcium 9.1, Total Bilirubin 1.7 H, Direct Bilirubin 0.26 H, Indirect Bilirubin 1.4, AST 11, ALT 7 L, Alkaline Phosphatase 52, Lactate Dehydrogenase 210, Total Protein 6.4, Albumin 3.3, Globulin 3.1, Albumin/Globulin Ratio 1.1 03/24/24 14:13: Hgb 7.2 L, Hct 16.5 L* 03/24/24 07:40: Antibody Identification Warm Auto Antibody, FARTUN, IgG Specific POSITIVE, FARTUN, Polyspecific POSITIVE, FARTUN, C3d Specific POSITIVE, Crossmatch See Detail 03/24/24 07:40: Antibody Identification Anti-E 03/24/24 07:40: Blood Type A NEGATIVE, Antibody Screen POSITIVE, Antibody Identification Cold Antibody 03/24/24 05:22: Hgb 7.8 L, Hct 21.8 L, Ionized Calcium NO, Sodium 133 L, Potassium 3.9, Chloride 102, Carbon Dioxide 26, Anion Gap 5.0 L, BUN 22 H, Creatinine 0.7, Estimated GFR (MDRD) 82 L, Glucose 108 H, Calcium 9.3 03/23/24 16:03: Hgb 7.8 L, Hct 22.9 L 03/23/24 04:28: WBC 5.1, RBC 2.65 L, Hgb 8.2 L, Hct 23.7 L, MCV 89.4, MCH 30.9, MCHC 34.6, RDW 14.6, Plt Count GRAFFITI CLEANER, Neut # (Auto) Not Reportable, Lymph # (Auto) Not Reportable, [place] # (Auto) Not Reportable, Eos # (Auto) Not Reportable, Baso # (Auto) Not Reportable, Absolute Nucleated RBC Not Reportable, Total Counted 100, Band Neuts % (Manual) 0, Abnorm Lymph % (Manual) 0, Nucleated RBC % Not Reportable, Neutrophils # (Manual) 3.1, Lymphocytes # (Manual) 1.3 L, Monocytes # (Manual) 0.5, Eosinophils # (Manual) 0.2, Basophils # (Manual) 0.1, Differential Comment MANUAL DIFFERENTIAL, Platelet Estimate DECREASED (<130,000), Platelet Morphology PLATELET CLUMPING, RBC Morph Micro Appear NORMAL APPEARANCE, Ionized Calcium NO, Sodium 135, Potassium 3.9, Chloride 105, Carbon Dioxide 24, Anion Gap 6.0, BUN 11, Creatinine 0.8, Estimated GFR (MDRD) 70 L, Glucose 93, Calcium 9.3, Magnesium 1.4 L, Total Bilirubin 1.3 H, Direct Bilirubin 0.24 H, Indirect Bilirubin 1.1, Lactate Dehydrogenase 242 03/22/24 21:55: Hgb 8.0 L, Hct 22.9 L 03/22/24 04:54: WBC 4.4 L, RBC 3.62 L, Hgb 11.4 L, Hct 32.5 L, MCV 89.8, MCH 31.5 H, MCHC 35.1, RDW 14.6, Plt Count GRAFFITI CLEANER, Neut # (Auto) GRAFFITI CLEANER, Lymph # (Auto) GRAFFITI CLEANER, [place] # (Auto) GRAFFITI CLEANER, Eos # (Auto) GRAFFITI CLEANER, Baso # (Auto) GRAFFITI CLEANER, Absolute Nucleated RBC GRAFFITI CLEANER, Total Counted 100, Band Neuts % (Manual) 4, Reactive Lymphs % (Man) 11, Abnorm Lymph % (Manual) 0, Nucleated RBC % GRAFFITI CLEANER, Neutrophils # (Manual) 2.2, Lymphocytes # (Manual) 1.1 L, Monocytes # (Manual) 0.9, Eosinophils # (Manual) 0.2, Basophils # (Manual) 0.1, Differential Comment MANUAL DIFFERENTIAL, Platelet Estimate NORMAL (130-450,000), Platelet Morphology PLATELET CLUMPING, RBC Morph Micro Appear 1+ ANISOCYTOSIS, VBG pH 7.413 H, Ionized Calcium 1.15, Sodium 133 L , Potassium 4.1, Chloride 105, Carbon Dioxide 23, Anion Gap 5.0 L, BUN 12, Creatinine 0.8, Estimated GFR (MDRD) 70 L, Glucose 99, Calcium 8.7, Phosphorus 3.1, Magnesium 1.7 03/21/24 22:33: WBC 5.7, RBC 2.35 L, Hgb 8.8 L, Hct 23.6 L, MCV 100.4 H, MCH 37.4 H, MCHC 37.3 H, RDW 20.1 H, Plt Count , MPV TNP, Potassium 4.6 H, Magnesium 1.8 03/21/24 17:20: WBC 6.1, RBC 1.50 L, Hgb 6.8 L*, Hct 16.2 L*, MCV 108.0 H, MCH 45.3 H, MCHC 42.0 H, RDW TNP, Plt Count TNP, MPV 12.9 H, Haptoglobin <10 L, T otal Bilirubin 1.8 H, Direct Bilirubin 0.29 H, Indirect Bilirubin 1.5, Lactate Dehydrogenase 214 03/21/24 05:25: Specimen Type BLOOD, WBC 5.0, RBC 1.14 L, Hgb 3.6 L*, Hct 10.0 L*, MCV 109.9 H, MCH 31.6 H, MCHC 36.0, RDW 14.7, Plt Count Not Reportable, MPV 12.5 H, Neut # (Auto) 3.3, Lymph # (Auto) 0.8 L, [place] # (Auto) 0.8, Eos # (Auto) 0.1, Baso # (Auto) 0.0, Absolute Nucleated RBC 0.00, Nucleated RBC % 0.0, Pathologist Review SEE SEPARATE REPORT, WBC Morphology NORMAL APPEARANCE, Platelet Estimate NORMAL (130-450,000), Platelet Morphology PLATELET CLUMPING, RBC Morph Micro Appear NORMAL APPEARANCE, Sodium 131 L, Potassium 3.5, Chloride 101, Carbon Dioxide 25, Anion Gap 5.0 L, BUN 14, Creatinine 0.8, Estimated GFR (MDRD) 70 L, Glucose 136 H, Calcium 8.5, Iron 194, TIBC 265, % Saturation 73 H, Transferrin 189 L, Total Bilirubin 1.1 H, Direct Bilirubin 0.15, Indirect Bilirubin 1.0, AST 12, ALT 6 L, Alkaline Phosphatase 53, Lactate Dehydrogenase 185, Total Protein 6.4, Albumin 3.2, Globulin 3.2, Albumin/Globulin Ratio 1.0, Vitamin B12 608, Folate 10.0 03/21/24 02:00: Hgb 3.6 L*, Hct 10.2 L* 03/20/24 21:24: Hgb 4.0 L*, Hct 11.0 L* 03/20/24 14:43: Antibody Identification Warm Auto Antibody, FARTUN, IgG Specific POSITIVE, FARTUN, Polyspecific POSITIVE, FARTUN, C3d Specific POSITIVE, Crossmatch See Detail 03/20/24 14:43: Antibody Identification Anti-E 03/20/24 14:43: Blood Type A NEGATIVE, Antibody Screen POSITIVE, Antibody Identification Cold Antibody 03/20/24 14:10: WBC 7.3, RBC 1.42 L, Hgb 5.0 L*, Hct 13.2 L*, MCV 93.0, MCH 35.2 H, MCHC 37.9 H, RDW 16.0 H, Plt Count , Neut # (Auto) Not Reportable, Lymph # (Auto) Not Reportable, [place] # (Auto) Not Reportable, Eos # (Auto) Not Reportable, Baso # (Auto) Not Reportable, Absolute Nucleated RBC Not Reportable, Total Counted 100, Band Neuts % (Manual) 0, Abnorm Lymph % (Manual) 0, Nucleated RBC % Not Reportable, Neutrophils # (Manual) 6.4, Lymphocytes # (Manual) 0.4 L, Monocytes # (Manual) 0.4, Eosinophils # (Manual) 0.0, Basophils # (Manual) 0.0, Differential Comment MANUAL DIFFERENTIAL, Platelet Estimate NORMAL (130- 450,000), Platelet Morphology PLATELET CLUMPING, RBC Morph Micro Appear NORMAL APPEARANCE 03/20/24 13:50: PT 13.1 H, INR 1.2, APTT 21.2 L, Sodium 129 L, Potassium 3.7, C hloride 96 L, Carbon Dioxide 26, Anion Gap 7.0, BUN 19, Creatinine 1.0, E stimated GFR (MDRD) 54 L, Glucose 148 H, Calcium 9.9, Phosphorus 3.3, Magnesium 0.9 L*, Total Bilirubin 1.4 H, AST 14, ALT 9 L, Alkaline Phosphatase 66, Total Protein 7.7, Albumin 3.9, Globulin 3.8, Albumin/Globulin Ratio 1.0, Lipase 27, Blood Type Recheck A NEGATIVE Lab results reviewed: Yes 03/25/24 14:54 03/25/24 09:24 Meds/Allgy Home Medications Ambulatory Orders Medication Instructions Recorded Confirmed cyclobenzaprine 10 mg tablet 10 mg PO DAILY PRN Spasms 11/23/13 03/20/24 sumatriptan succinate 6 mg/0.5 mL 100 mg ORAL BID PRN Migraine 11/23/13 03/20/24 subcutaneous solution valacyclovir 500 mg tablet 500 mg ORAL DAILY 11/23/13 03/20/24 metoprolol tartrate 25 mg tablet 25 mg PO BID 03/20/24 03/20/24 dextroamphetamine-amphetamine ER 30 mg PO DAILY 03/21/24 03/21/24 30 mg 24hr capsule,extend release (Adderall XR) multivitamin 1 tab PO DAILY 03/21/24 03/21/24 propranolol 10 mg tablet 10 - 20 mg PO TID PRN anxiety 03/21/24 03/21/24 trazodone 100 mg tablet 100 mg PO HS 03/21/24 03/21/24 hydrocortisone-aloe vera 1 % 1 applic topical BID #14.2 grams 03/24/24 topical cream pantoprazole 40 mg tablet,delayed 40 mg PO BID 3 months #180 tabs 03/24/24 release (Protonix) sucralfate 1 gram tablet (Carafate) 1 g PO QID 3 months #360 tabs 03/24/24 Allergies Allergies Allergy/AdvReac Type Severity Reaction Status Date / Time lovastatin Allergy Severe Palpitations/Dry Verified 03/20/24 13:27 mouth/ Confusion Sulfa (Sulfonamide Allergy Intermediate Rash/Hives Verified 03/20/24 13:27 Antibiotics) albuterol Allergy Unknown Verified 03/20/24 13:27 ciprofloxacin (From Cipro) Allergy Rash Verified 03/20/24 13:27 levofloxacin (From Levaquin) Allergy Rash Verified 03/20/24 13:27 prednisone Allergy Unknown Verified 03/20/24 13:27 acetaminophen (From Percocet) AdvReac Headache Verified 03/20/24 13:27 bupropion (From Wellbutrin) AdvReac Anxiety Verified 03/20/24 13:27 hydromorphone AdvReac Headache Verified 03/20/24 13:27 nitrofurantoin AdvReac Nausea Verified 03/20/24 13:27 oxycodone (From Percocet) AdvReac Headache Verified 03/20/24 13:27 lamictal AdvReac Severe Rapid Uncoded 03/18/24 15:25 heart rate Percocet AdvReac Severe Migraines Uncoded 03/18/24 15:25 [facility] Medical History Medical History (Updated 03/24/24 @ 12:39 by Lakhwinder Osorio MD) Paroxysmal atrial fibrillation Anemia Bleeding duodenal ulcer (~02/2024) Bile reflux gastritis (~02/2024) Erosive gastritis (~02/2024) History of Bravo's esophagus Osteoarthritis Weakness Constipation History of colon polyps Surgical History Surgical History (Updated 03/23/24 @ 10:55 by Isabel Yañez DO) History of esophagogastroduodenoscopy (EGD) (~03/22/24) 2023: bleeding duodenal ulcer, bile reflux gastritis [2014 (barretts), 2016, 2019 (barretts), 2020] History of colonoscopy with polypectomy (~03/22/24) diverticulosis History of lumbar fusion (~06/05/15) L4-5 History of arthroscopic knee surgery 2 ACL replacement /1 meniscus tear History of ovarian cystectomy History of tubal ligation History of tonsillectomy Social History Social History (Updated 03/20/24 @ 14:02 by Ghazala Fernandez RN) Smoking Status: Former smoker If you are a former smoker, when did you quit? (Date/Year): 2014 Number of Years Smoked: 28 How many cigarettes a day do you smoke? (20 cigarettes=1 Pk): 6 Second hand tobacco smoke exposure: No Do you dip or chew tobacco?: No Do you vape?: No Patient requests smoking cessation consult: No Initiate information on smoking cessation: No Living arrangement: At home Living Condition: With family Relationship: Level: Independent Do you feel safe in your home environment?: Yes Suffered physical, verbal, emotional, or financial abuse?: No History of Abuse: No Substance Use: former substance user Substance Use Details: Marijuana POLST Patient has POLST: No Anesthesia Exam (Expanded) Exam General: Alert, Oriented x3 and Cooperative Dental: WNL Mouth Openin Fingerbreadth Neck Mobility: Normal Mallampati classification: II Thyromental Distance: 4-6 cm Plan Plan Anesthesia Type: General Consent for Procedure(s) Verified and Reviewed: Yes Code Status: Attempt Resuscitation ASA Classification ASA classification: 3-Severe systemic disease Is this case an emergency?: Yes
[2024-03-25] MEDS ORDERED: PHENYLEPHRINE 10 MG/ML VIAL ONE (17:11)
[2024-03-25] MEDS ORDERED: PHENYLEPHRINE HCL 0.5 MG/5 ML AMPULE ONE (17:35)
[2024-03-25] MEDS ORDERED: ONDANSETRON 4 MG/2 ML VIAL ONE (17:40)
[2024-03-25] MEDS ORDERED: fentaNYL 100 MCG/2 ML VIAL IVP PRN (18:00)
[2024-03-25] MEDS ORDERED: HYDROmorphone 0.5 MG/0.5 ML SYRINGE IVP PRN (18:00)
[2024-03-25] MEDS ORDERED: NALOXONE 0.4 MG/ML VIAL IVP PRN (18:00)
[2024-03-25] MEDS ORDERED: ATROPINE ABBOJECT 1 MG/10 ML SYRINGE IVP PRN (18:00)
[2024-03-25] MEDS ORDERED: MORPHINE 2 MG/ML CARPUJECT IVP PRN (18:00)
[2024-03-25] MEDS ORDERED: ONDANSETRON 4 MG/2 ML VIAL IVP PRN (18:00)
--- NOTE | 2024-03-25 18:19 | ANESTHESIA POST OP EVALUATION ---
Anesthesia Post Eval Post Anesthesia Eval Vitals: Last Vital Signs Temp 37.0 C 03/25/24 18:14 Pulse 79 03/25/24 18:14 Resp 18 03/25/24 18:14 BP 102/51 L 03/25/24 18:14 Pulse Ox 97 03/25/24 18:14 O2 Flow Rate 2 03/21/24 18:00 CV Function Including HR & BP: Stable Pain Control: Satisfactory Nausea & Vomiting: Negative Mental Status: Baseline Respiratory Status: Airway Patent Hydration Status: Satisfactory Anesthesia Complications: None
--- NOTE | 2024-03-25 18:22 | OPERATIVE REPORT ---
Operative Report General Admit Date: 03/21/24 Procedure Data: Operation Date: 03/25/24 17:00 Proposed Procedures p Esophagogastroduodenoscopy(Not Applicable) - Anthony Lyles MD Actual Procedures p Esophagogastroduodenoscopy(Not Applicable) - Anthony Lyles MD Pre-Op Diagnosis: ANEMIA Anesthesia Type General Case Staff Anesthesia Provider: Suma Page Case Times Into Recovery: 03/25/24 17:51 Procedure Start: 03/25/24 17:20 Procedure End: 03/25/24 17:40 Time out: 03/25/24 17:16 Other Other Information/Narrative: General Surgery Brief Procedure Note (see "Provation" for details) Preop Diagnosis: Recurrent active upper GI bleed Postop Diagnosis: No active UGI tract bleeding; Distal esophageal ulceration Procedure: EGD with Epinephrine injection and endoclip application of distal esophageal ulceration Recommendation: 1) Continue PPI, Carafate; Start Mylanta q6H for 36 hours 2) Serial H&H 3) If H&H decreases, CTA of the abdomen Anthony Lyles MD, FACS General Surgery Service
[2024-03-25] MEDS: SODIUM CHLORIDE FLUSH 0.9% 10 ML SYRINGE IVP PRN (19:05)
[2024-03-25] MEDS: MAG HYDROX/AL HYDROX/SIMETH 30 ML UDC PO SCH (19:22)
[2024-03-25] MEDS: LACTATED RINGERS 1,000 ML IV ONE (19:42)
[2024-03-25 22:35] LABS: HCT - HEMATOCRIT 19.8 % (37.0-47.0)
[2024-03-26 03:30] LABS: MAGNESIUM 1.2 mg/dL (1.7-2.3)
[2024-03-26 03:36] LABS: CREATININE 0.8 mg/dL (0.6-1.3); POTASSIUM 3.7 mmol/L (3.5-4.5)
[2024-03-26 04:04] LABS: MEAN CORPUSCULAR HEMOGLOBIN 34.5 pg (27.0-31.0); MEAN CORPUSCULAR HGB CONC 35.1 g/dL (32.0-36.0); MEAN CORPUSCULAR VOLUME 98.5 fL (81.0-99.0); RED BLOOD COUNT 1.97 10^6/uL (4.20-5.40); RED CELL DISTRIBUTION WIDTH 20.2 % (12.0-15.0); WHITE BLOOD COUNT 6.4 x10^3/uL (4.8-10.8)
[2024-03-26 04:57] LABS: HCT - HEMATOCRIT 19.4 % (37.0-47.0); HGB - HEMOGLOBIN 6.8 g/dL (12.0-16.0)
[2024-03-26 06:52] LABS: HCT - HEMATOCRIT 20.5 % (37.0-47.0); HGB - HEMOGLOBIN 7.4 g/dL (12.0-16.0)
--- NOTE | 2024-03-26 06:58 | PROVIDER PROGRESS NOTE ---
Progress Note Progress Note Progress Note: General Surgery Progress Note S: Comfortable; Hungry; No abdominal pain O: VSS, afeb; Lungs clear; Heart NSR; Abdomen soft, not distended, not tender Labs: H&H this morning 6.8/19.4; Path: Gastric mucosal biopsies from first EGD negative for HP A: Anemia due to actively bleeding duodenal ulcer controlled with successful hemoclip application 03/22/24. Recurrent bleed likely from distal esophageal erosion treated with epi injection and hemoclip. As there was no evidence of active bleeding from the UGI tract during yesterday's EGD and since her colon examination was normal, the only other possible souce of GI blood loss would be the small bowel. Her H&H this morning remains low and she would benefit from an additional unit of PRBC this morning (she has already received 5 U over the last 5 days). If her H&H continues to decline, CTA should be considered Recommendations: Transfuse 1 unit PRBC today; IV to SL; Follow H&H; CTA this afternoon if H&H does not stabilize. May start clear liquids. Continue PPI, Mylanta, Carafate. Surgery will follow. Anthony Lyles MD, FACS General Surgery Service
--- NOTE | 2024-03-26 13:46 | PROVIDER PROGRESS NOTE ---
Subjective Subjective Subjective: Patient is a 73-year-old female with a history of anemia, GERD on omeprazole who presented due to worsening weakness, as well as black stools. She was found to have a hemoglobin of 5. Her rash is improving. Her weakness is improving. She was receiving the unit of blood that was ordered yesterday. Yesterday, I did speak with the forging press setter up that she will be following up with outpatient, Dr. Bea [id number]. We reviewed her labs. She does think that she may have an underlying autoimmune hemolytic anemia. However with her LDH being within normal limits, it is unlikely that she is hemolyzing right now. The reason for her anemia is likely her her bleeding. Yesterday, patient underwent a repeat EGD as her hemoglobin was unstable. He did see the distal esophageal ulceration but saw no active bleeding. After discussion, she got 1 more unit of blood, then we will recheck her hemoglobin. If it is stable, we will send her home. If it continues to drop or is the same, we will do a CTA. Current Medications Current Medications Current Medications: Current Medications Generic Name Dose Route Start Last Admin Trade Name Freq PRN Reason Stop Dose Admin Acetaminophen 650 mg 03/20/24 17:12 03/25/24 19:23 Acetaminophen 325 Mg Tablet PO 650 mg Q4HR PRN Administration Pain 1 to 4, or Fever Al Hydroxide/Mg Hydroxide 30 ml 03/25/24 19:10 03/26/24 13:19 Mag Hydrox/Al Hydrox/Simeth 30 Ml Udc PO 30 ml Q6H DENIZ Administration Hydrocortisone 1 applic 03/24/24 09:00 03/26/24 08:50 Hydrocortisone 1% Cream 28 Gm Tube TOP 1 applic BID DENIZ Administration Lactated Ringer's 1,000 mls @ 125 mls/hr 03/25/24 15:00 03/26/24 12:09 Lr IV Infused .Q8H DENIZ Infusion Melatonin 3 mg 03/24/24 15:35 03/25/24 20:13 Melatonin 3 Mg Tablet PO 3 mg QPM DENIZ Administration Metoprolol Tartrate 25 mg 03/22/24 11:00 03/26/24 08:51 Metoprolol Tartrate 25 Mg Tablet PO Not Given BID DENIZ Ondansetron HCl 4 mg 03/20/24 17:12 03/22/24 10:43 Ondansetron Odt 4 Mg Tablet TL 4 mg Q6HR PRN Administration Nausea / Vomiting Pantoprazole Sodium 40 mg 03/22/24 21:00 03/26/24 08:51 Pantoprazole 40 Mg Vial IVP 40 mg BID DENIZ Administration Sodium Chloride 10 ml 03/20/24 17:12 03/25/24 19:05 Sodium Chloride Flush 0.9% 10 Ml Syringe IVP 10 ml PRN PRN Administration NEEDED PER PROVIDER ORDERS Sodium Chloride 10 ml 03/20/24 17:12 03/26/24 08:52 Sodium Chloride Flush 0.9% 10 Ml Syringe IVP 10 ml 0100,0900,1700 DENIZ Administration Sucralfate 1 gm 03/22/24 16:00 03/26/24 12:08 Sucralfate 1 Gm/10 Ml Udc PO 1 gm 0700,1100,1600,2200 DENIZ Administration Tramadol HCl 50 mg 03/24/24 15:34 03/25/24 19:23 Tramadol 50 Mg Tablet PO 50 mg Q6HR PRN Administration Moderate Pain (Level 4-6) Trazodone HCl 50 mg 03/24/24 19:00 03/25/24 20:13 Trazodone 50 Mg Tablet PO 50 mg QPM DENIZ Administration Valacyclovir HCl 500 mg 03/23/24 10:00 03/26/24 08:51 Valacyclovir 500 Mg Tablet PO 500 mg DAILY DENIZ Administration Objective Vital Signs/Intake & Output Reviewed Vital Signs: Yes Vital Signs: Vital Signs x48h Temp Pulse Pulse Pulse Resp BP BP 03/26/24 11:55 97.7 F 88 20 113/57 L 03/26/24 11:33 97.7 F 86 18 112/54 L 03/26/24 08:58 97.9 F 80 19 93/55 L 03/26/24 08:51 82 107/47 L Pulse Ox 03/26/24 11:55 100 03/26/24 11:33 97 03/26/24 08:58 95 03/26/24 08:51 Intake & Output: Intake & Output 03/23/24 03/24/24 03/25/24 03/26/24 23:59 23:59 23:59 23:59 Intake Total 2858 / 2858 1060 / 1060 2028 / 2028 1818 / 181 Output Total 1850 / 1850 1750 / 1750 500 / 500 500 / 500 Balance 1008 / 1008 -690 / -690 1529 / 1529 1318 / 1318 Weight (kg) 69 kg 69 kg 68 kg Objective General Appearance: positive No acute distress and Alert Eyes Bilateral: positive Normal inspection and PERRL ENT: positive ENT inspection nml Neck: positive Nml inspection and Trachea midline Respiratory: positive Chest non-tender and No respiratory distress Cardiovascular: positive Regular rate & rhythm and No murmur Abdomen: positive Non-tender and No organomegaly Skin: positive Color nml and No rash Extremities: positive Non-tender and Full ROM Neurologic/Psychiatric: positive Oriented x3 and CN's nml (2-12) Lab Results 03/26/24 06:19 03/26/24 03:15 Other Labs: Lab Results x24hrs 03/26/24 03/26/24 03/25/24 Range/Units 06:19 03:15 22:07 WBC 6.4 (4.8-10.8) x10^3/uL RBC 1.97 L (4.20-5.40) 10^6/uL Hgb 7.4 L 6.8 L* 7.0 L* (12.0-16.0) g/dL Hct 20.5 L 19.4 L* 19.8 L* (37.0-47.0) % MCV 98.5 (81.0-99.0) fL MCH 34.5 H (27.0-31.0) pg MCHC 35.1 (32.0-36.0) g/dL RDW 20.2 H (12.0-15.0) % Plt Count RUBBER FLAP CUTTER MPV 13.0 H (7.9-10.8) fL Haptoglobin (42-346) mg/dL Sodium 134 L (135-145) mmol/L Potassium 3.7 (3.5-4.5) mmol/L Chloride 103 (101-111) mmol/L Carbon Dioxide 27 (21-32) mmol/L Anion Gap 4.0 L (6-13) BUN 21 H (6-20) mg/dL Creatinine 0.8 (0.6-1.3) mg/dL Estimated GFR (MDRD) 70 L (>89) Glucose 97 (74-104) mg/dL Calcium 9.0 (8.5-10.3) mg/dL Magnesium 1.2 L (1.7-2.3) mg/dL Blood Type Antibody Screen Antibody Identification FARTUN, IgG Specific FARTUN, Polyspecific FARTUN, C3d Specific Crossmatch 03/25/24 03/25/24 03/24/24 Range/Units 14:54 09:24 07:40 WBC (4.8-10.8) x10^3/uL RBC (4.20-5.40) 10^6/uL Hgb 6.7 L* (12.0-16.0) g/dL Hct 19.3 L* (37.0-47.0) % MCV (81.0-99.0) fL MCH (27.0-31.0) pg MCHC (32.0-36.0) g/dL RDW (12.0-15.0) % Plt Count MPV (7.9-10.8) fL Haptoglobin <10 L (42-346) mg/dL Sodium (135-145) mmol/L Potassium (3.5-4.5) mmol/L Chloride (101-111) mmol/L Carbon Dioxide (21-32) mmol/L Anion Gap (6-13) BUN (6-20) mg/dL Creatinine (0.6-1.3) mg/dL Estimated GFR (MDRD) (>89) Glucose (74-104) mg/dL Calcium (8.5-10.3) mg/dL Magnesium (1.7-2.3) mg/dL Blood Type Antibody Screen Antibody Identification Warm Auto Antibody FARTUN, IgG Specific POSITIVE FARTUN, Polyspecific POSITIVE FARTUN, C3d Specific POSITIVE Crossmatch See Detail 03/24/24 03/24/24 Range/Units 07:40 07:40 WBC (4.8-10.8) x10^3/uL RBC (4.20-5.40) 10^6/uL Hgb (12.0-16.0) g/dL Hct (37.0-47.0) % MCV (81.0-99.0) fL MCH (27.0-31.0) pg MCHC (32.0-36.0) g/dL RDW (12.0-15.0) % Plt Count MPV (7.9-10.8) fL Haptoglobin (42-346) mg/dL Sodium (135-145) mmol/L Potassium (3.5-4.5) mmol/L Chloride (101-111) mmol/L Carbon Dioxide (21-32) mmol/L Anion Gap (6-13) BUN (6-20) mg/dL Creatinine (0.6-1.3) mg/dL Estimated GFR (MDRD) (>89) Glucose (74-104) mg/dL Calcium (8.5-10.3) mg/dL Magnesium (1.7-2.3) mg/dL Blood Type A NEGATIVE Antibody Screen POSITIVE Antibody Identification Anti-E Cold Antibody FARTUN, IgG Specific FARTUN, Polyspecific FARTUN, C3d Specific Crossmatch Diagnostic Imaging Diagnostic Imaging Results: positive Final report reviewed Assessment/Plan Problem List (1) Blood loss anemia: Impression: Patient presented with hemoglobin of 3.6. Received 4 units of PRBCs, with resultant hemoglobin of 11.4. Was then 8 after colonoscopy. Continues to drop, associated repeat EGD done on 03/25 which showed no active bleeding. Received 1 more unit of blood afterwards. Will recheck hemoglobin later this evening, if it is responding appropriately, can be discharged home with close follow-up. Xu test was positive. 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 Electrocardiograph Repairer, Dr. Bea Ayala, who was requested by the family was spoken with. She does believe it is autoimmune hemolytic anemia, and will follow-up with her outpatient. However, within normal LDH, she does not believe that she is actively hemolyzing at this time. Scheduling is working on follow-up appointment for her in the outpatient setting. Colonoscopy showed bleeding duodenal ulcer; EGD showed erosive gatritis. Continue Carafate and Protonix for 6 months. Follow up with surgery outpatient. (2) Hemolytic anemia: Impression: See above. 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 Patient is eating more; will likely d/c at end of the day. Continue to trend. (4) Hypomagnesemia: Impression: Resolved, continue to trend. (5) Paroxysmal atrial fibrillation: Impression: Upon further review, the only documented episode of atrial fibrillation is the episode she had in the emergency room noted on telemetry on her last visit. At that time, she was not started on any anticoagulation due to anemia. She was advised to follow-up with a cardiologistI presume they will likely put her on a Holter monitor or an event monitor and monitor her atrial fibrillation burden, and talk about the risks and benefits of her being on a blood thinner. At this time, after further discussion with patient and her daughters, and the possible risks vs. benefits, we will we will discharge her without any blood thinners or baby aspirin.
[2024-03-26 16:58] LABS: HCT - HEMATOCRIT 23.9 % (37.0-47.0); HGB - HEMOGLOBIN 8.4 g/dL (12.0-16.0)
[2024-03-26 17:37] VITALS: BP 105/67; TEMP 98.2; O2SAT 96
== END 2024-03-26 19:17 | disposition home health service (06) | DRG 811 ==
LOC: ED 13:22 → MS2 13:22 → MS3 03-23 12:18
PROVIDERS: ADMIT Internal Medicine; ATTEND Internal Medicine
DX: R53.1 Weakness; K44.9 Diaphragmatic hernia without obstruction or gangrene; E83.42 Hypomagnesemia; K29.70 Gastritis, unspecified, without bleeding; K64.4 Residual hemorrhoidal skin tags; K57.30 Diverticulosis of large intestine without perforation or abscess without bleeding; K21.9 Gastro-esophageal reflux disease without esophagitis; Z68.20 Body mass index [BMI] 20.0-20.9, adult; M54.9 Dorsalgia, unspecified; D59.13 Mixed type autoimmune hemolytic anemia; G89.29 Other chronic pain; D50.0 Iron deficiency anemia secondary to blood loss (chronic); Z87.891 Personal history of nicotine dependence; E87.1 Hypo-osmolality and hyponatremia; Z87.19 Personal history of other diseases of the digestive system; K59.00 Constipation, unspecified; R63.4 Abnormal weight loss; K22.10 Ulcer of esophagus without bleeding; M54.2 Cervicalgia; K25.4 Chronic or unspecified gastric ulcer with hemorrhage; K26.4 Chronic or unspecified duodenal ulcer with hemorrhage; K63.89 Other specified diseases of intestine; K92.2 Gastrointestinal hemorrhage, unspecified; I48.0 Paroxysmal atrial fibrillation

== ENCOUNTER 2024-12-19 03:28 | Inpatient (IN) ==
[2024-12-19] MEDS ORDERED: HYDROmorphone 0.5 MG/0.5 ML SYRINGE IVP PRN (03:35)
--- NOTE | 2024-12-19 03:44 | ED Physician Documentation ---
History of Present Illness Stated complaint Stated Complaint: OD/UNRESPONSIVE History obtained from History obtained from: EMS Additonal information Additional information: 74yF presents s/p intentional overdose. history limited by patient acuity Meds/Allgy Home Medications Ambulatory Orders Medication Instructions Recorded Confirmed valacyclovir 500 mg tablet 500 mg ORAL DAILY 11/23/13 11/23/24 dextroamphetamine-amphetamine ER 30 mg PO DAILY 11/23/24 30 mg 24hr capsule,extend release (Adderall XR) multivitamin 1 tab PO DAILY 03/21/2406/14 propranolol 10 mg tablet 10 - 20 mg PO TID PRN anxiet y 03/21/24 11/23/24 pantoprazole 40 mg tablet,delayed 40 mg PO BID 3 month s #180 tabs 03/24/24 11/23/24 release (Protonix) aluminum-mag hydroxide-simethicone 30 ml PO Q6H 30 day s #0 mL 03/26/24 11/23/24 200 mg-200 mg-20 mg/5 mL oral susp (Mag-Al Plus) magnesium oxide 400 mg (241.3 mg 400 mg PO QDAY 11/23/24 magnesium) tablet (MagOx) metoprolol succinate 25 mg 25 mg PO BID 04/30/2411/23 tablet,extended release 24 hr pantoprazole 40 mg granules 40 mg PO QDAY 04/30/24 delayed-release for susp in packet prednisone 10 mg tablet 5 mg PO BID 04/30/24 5 rizatriptan 5 mg tablet 5 mg PO Q2H PRN migraine hea dache 04/30/24 11/23/24 sucralfate 1 gram tablet 1 g PO BID 04/30/24 09/15/24 tramadol 50 mg tablet 50 mg PO BID PRN pain 11/23/24 trazodone 50 mg tablet 50 mg PO QDAY 04/30/2411/23 valacyclovir 500 mg tablet 500 mg PO QDAY 04/30/2411/14 sutimlimab-jome 50 mg/mL 6,500 mg IV Q2W 09/15/24 intravenous solution oxycodone 5 mg tablet 5 mg PO Q8H PRN pain #12 tab s 11/23/24 Allergies Allergies Allergy/AdvReac Type Severity Reaction Status Date / Time lovastatin Allergy Severe Palpitations/Dry Verified 11/23/24 11:16 mouth/ Confusion Sulfa (Sulfonamide Allergy Intermediate Rash/Hives Verified 11/23/24 11:16 Antibiotics) albuterol Allergy Unknown Verified 11/23/24 11:16 ciprofloxacin (From Cipro) Allergy Rash Verified 11/23/24 11:16 levofloxacin (From Levaquin) Allergy Rash Verified 11/23/24 11:16 oxycodone (From Percocet) Allergy Headache Verified 11/23/24 11:34 prednisone Allergy Unknown Verified 11/23/24 11:16 acetaminophen (From Percocet) AdvReac Headache Verified 11/23/24 11:16 bupropion (From Wellbutrin) AdvReac Anxiety Verified 11/23/24 11:16 hydromorphone AdvReac Headache Verified 11/23/24 11:16 lamotrigine (From Lamictal) AdvReac Tachycardia Verified 11/23/24 11:34 nitrofurantoin AdvReac Nausea Verified 11/23/24 11:16 PFSH Active Problems All Active Problems (Updated 11/23/24 @ 14:30 by Car Morse DNP) Closed rib fracture (Acute) Fall from ground level (Acute) Cystitis (Acute) Thrombosed external hemorrhoid (Acute) Rash (Acute) Hemolytic anemia (Acute) Symptomatic anemia (Acute) Blood loss anemia (Acute) Anemia (Acute) Atrial fibrillation (Acute) Left knee sprain (Acute) Neck muscle strain (Acute) Medical History Medical History Paroxysmal atrial fibrillation Anemia Bleeding duodenal ulcer (~02/2024) Bile reflux gastritis (~02/2024) Erosive gastritis (~02/2024) History of Bravo's esophagus Osteoarthritis Weakness Constipation History of colon polyps Surgical History Surgical History History of esophagogastroduodenoscopy (EGD) (~03/22/24) 2023: bleeding duodenal ulcer, bile reflux gastritis [2014 (barretts), 2016, 2019 (barretts), 2020] History of colonoscopy with polypectomy (~03/22/24) diverticulosis History of lumbar fusion (~06/05/15) L4-5 History of arthroscopic knee surgery 2 ACL replacement /1 meniscus tear History of ovarian cystectomy History of tubal ligation History of tonsillectomy Social History Social History If you are a former smoker, when did you quit? (Date/Year): 2014 Number of Years Smoked: 28 How many cigarettes a day do you smoke? (20 cigarettes=1 Pk): 6 Second hand tobacco smoke exposure: No Do you dip or chew tobacco?: No Do you vape?: No Patient requests smoking cessation consult: No Initiate information on smoking cessation: No Living arrangement: At home Living Condition: With family Level: Independent Do you feel safe in your home environment?: Yes History of physical, verbal, emotional, or financial abuse?: No Substance Use: former substance user Substance Use Details: Marijuana POLST Patient has POLST: No Exam Constitutional elderly, obtunded HENMT normocephalic, head/scalp atraumatic and oropharynx normal Eyes PERRL and EOMs intact bilaterally Neck/C-Spine visual inspection normal Chest inspection of chest normal Respiratory breath sounds equal bilaterally gasping respirations on initial arrival Cardiovascular normal heart rate noted and regular rhythm noted Results Vitals Vitals: Oxygen O2 Source Room air PD Medical Decision Making ED course ED course: 74yF DNR/DNI comfort measures only presents after taking unknown quantity of her home medications in intentional overdose per daughter. Daughter confirms that her mother's wish is for comfort oriented care only to ease suffering and not to prolong life. Therefore shared decision was made to honor the patient's wishes and provide a calm environment with focus on maximizing her comfort and minimizing air hunger and unwelcome airway secretions. Patient received 500cc ivf administered by ems en route. Confirmed with daughter that we will not be providing life sustaining treatments which would include iv fluids. IV dilaudid ordered to manage air hunger and scopolamine for secretions. plan to endorse to incoming daytime ed md at 7am shift change. Discharge Plan Discharge Prescriptions: No Action valacyclovir 500 MG tablet 500 mg ORAL DAILY dextroamphetamine-amphetamine [Adderall XR] 30 mg capsule,extended release 24hr 30 mg PO DAILY Patient Comments: take 1 capsule by mouth once daily propranolol 10 mg tablet 10 - 20 mg PO TID PRN (Reason: anxiety) Patient Comments: take 1-2 tablets by mouth three times a day if needed for anxiety multivitamin Tablet 1 tab PO DAILY pantoprazole [Protonix] 40 mg tablet,delayed release (DR/EC) 40 mg PO BID 90 Days Qty: 180 0RF alum-mag hydroxide-simeth [Mag-Al Plus] 200-200-20 mg/5 mL Suspension 30 ml PO Q6H 30 Days Qty: 0 0RF oxycodone 5 mg tablet 5 mg PO Q8H PRN (Reason: pain) Qty: 12 0RF magnesium oxide [MagOx] 400 mg (241.3 mg magnesium) tablet 400 mg PO QDAY metoprolol succinate 25 mg tablet extended release 24 hr 25 mg PO BID pantoprazole [address] for susp in packet 40 mg PO QDAY prednisone 10 mg tablet 5 mg PO BID rizatriptan 5 mg tablet 5 mg PO Q2H PRN (Reason: migraine headache) Rx Instructions: do not exceed 6 doses per 24 hrs sucralfate 1 gram tablet 1 g PO BID tramadol 50 mg tablet 50 mg PO BID PRN (Reason: pain) trazodone 50 mg tablet 50 mg PO QDAY valacyclovir 500 mg tablet 500 mg PO QDAY sutimlimab-jome 50 mg/mL solution 6,500 mg IV Q2W Print Language: Croatian
[2024-12-19] MEDS: HYDROmorphone 1 MG/ML CARPUJECT IVP STA (04:24)
[2024-12-19] MEDS: SCOPOLAMINE PATCH TOP STA (04:30)
[2024-12-19 08:52] LABS: HCT - HEMATOCRIT 41.2 % (37.0-47.0); HGB - HEMOGLOBIN 13.2 g/dL (12.0-16.0); MEAN PLATELET VOLUME 11.2 fL (7.9-10.8); NRBC ABSOLUTE COUNT (AUTO) 0.00 x10^3/uL; NUCLEATED RED BLOOD CELLS AUTO 0.0 /100WBC; PLT - PLATELET COUNT 122 10^3/uL (130-450); RED CELL DISTRIBUTION WIDTH 13.1 % (12.0-15.0)
[2024-12-19 08:53] LABS: VBG BASE EXCESS -3.6 mmol/L (-2 - +2); VBG PCO2 44.4 mmHg (41-51); VBG PH 7.315 (7.31-7.41); VBG PO2 37.3 mmHg (25-47); VBG TOTAL CO2 24.2 mmol/L (24-29)
[2024-12-19 08:59] LABS: SLIDE REVIEW? Indicated
[2024-12-19] MEDS: SODIUM CHLORIDE 0.9% 1,000 ML IV STA (09:00)
[2024-12-19 09:03] LABS: ALT ALANINE AMINOTRANSFERASE 35.0 IU/L (10-60); AST ASPARTATE AMINOTRANSFERASE 44.0 IU/L (10-42); BUN - BLOOD UREA NITROGEN 24.0 mg/dL (6-20); CARBON DIOXIDE - CO2 27.0 mmol/L (21-32); CREATININE 1.0 mg/dL (0.6-1.3); GFR - MDRD 54.0 (>89)
--- NOTE | 2024-12-19 09:18 | CT Report ---
PROCEDURE: CT Head WO INDICATIONS: Transient alteration of consciousness TECHNIQUE: CT of the head was performed, without intravenous contrast. Reformats: Coronal and sagittal. For radiation dose reduction, the following was used: automated exposure control, adjustment of mA and/or kV according to patient size. COMPARISON: None. FINDINGS: Image quality: Diagnostic. Some images are limited by beam hardening artifacts most notably at the base of the skull Ventricles and cortical sulci are mildly dilated commonly represents a pattern of atrophy. Mild areas of low-attenuation in the periventricular and deep white matter, commonly related to chronic small vessel ischemic changes. No CT evidence of intracranial hemorrhage, mass lesion, mass effect. The orbits scalp, calvarium, paranasal sinuses, mastoid air cells, middle ear cavities within normal limits. Moderate vascular calcifications bilateral cavernous, supraclinoid carotids. IMPRESSION: Mild atrophy and chronic small vessel ischemic changes. No CT evidence of intracranial hemorrhage. If symptoms persist or worsen, or there is high clinical suspicion of intracranial abnormality, MRI could be performed. Reviewed by: Toby Nicholson MD on 12/19/2024 9:15 AM PDT Approved by: Toby Nicholson MD on 12/19/2024 9:15 AM PDT Station ID: [id number]
[2024-12-19 09:25] LABS: PLATELET ESTIMATE, MANUAL DECREASED (<130,000) (NORMAL)
[2024-12-19 10:20] LABS: AMPHETAMINE SCREEN,URINE NEGATIVE (NEGATIVE); BARBITURATE SCREEN,UR NEGATIVE (NEGATIVE); BENZODIAZEPINES SCREEN, URINE NEGATIVE (NEGATIVE); BUPRENORPHINE SCREEN, URINE NEGATIVE (NEGATIVE); COCAINE SCREEN URINE NEGATIVE (NEGATIVE); METHADONE SCREEN, URINE NEGATIVE (NEGATIVE); METHAMPHETAMINES SCREEN, URINE NEGATIVE (NEGATIVE); OPIATE SCREEN, URINE POSITIVE (NEGATIVE); THC CANNABINOID SCREEN, URINE NEGATIVE (NEGATIVE)
--- NOTE | 2024-12-19 15:20 | ED Physician Documentation ---
ED Addendum Addendum Addendum: After change of shift I did check in with the patient and her daughter. The patient was withdrawing to painful stimuli. Had adequate respiratory rate and seemed to have adequate tidal volume clinically. Oxygenation was upper 80s on room air. We did place her on oxygen by nasal cannula at 3 L and then 4 L with saturations and then into the 90s. I talked with the daughter who was asking what the likely outcome was. I told her I was not able to really tell without any data or information such as her ventilatory status and whether there is any signs of anoxic brain injury or such. The patient did agree to her steroid the daughter did agree to testing with the goal still to be comfort measures but really that she is concerned that it would not hurt. With the patient's altered mental status, I told her I do not think the patient would feel any discomfort of a blood draw or a brief catheter. We did do a urine test as the daughter did ask if this patient had also taken her oxycodone. The daughter states the patient had not been taking that regularly recently so presents in the urine which likely suggest Co. ingestion with the trazodone. The urine did show opiates. The basic blood count and electrolytes were good. Her VBG showed adequate ventilation with a pCO2 of 44. The head CT did not show any obvious edema or acute changes. With this I was able to talk with the daughter about likely being just oversedated from the medication. It would be hard to tell at this point if there was any anoxic brain damage but no obvious signs of that right now. The patient was hoping her mother would improve from this and would be able to get some help regarding her depression. As such the daughter was good with treating to some degree. She certainly would not want any airway intervention such as intubation. Okay with IV fluids for hydration and oxygen supp lementation. At this point the ventilations was appropriate so I did not need to talk to her about BiPAP or such. The goal at this point per the daughter would be to support her with some interventions keeping it minimal but adhering to the DNR/DNI. She was okay with hospitalization as I anticipate this being a longer duration given the half-life of trazodone. I talked with the hospitalist service once a bed became available in the afternoon. They are willing to place the patient in the hospital but asked first for a poison control consult. I had not done that as yet as a felt the main side effects or treatment for trazodone and/or some opiate to would be oxygenation and airway support if needed or appropriate along with IV fluids. We will consult poison control though and touch back with the hospitalist service. Discharge Plan Discharge Prescriptions: No Action valacyclovir 500 MG tablet 500 mg ORAL DAILY dextroamphetamine-amphetamine [Adderall XR] 30 mg capsule,extended release 24hr 30 mg PO DAILY Patient Comments: take 1 capsule by mouth once daily propranolol 10 mg tablet 10 - 20 mg PO TID PRN (Reason: anxiety) Patient Comments: take 1-2 tablets by mouth three times a day if needed for anxiety multivitamin Tablet 1 tab PO DAILY pantoprazole [Protonix] 40 mg tablet,delayed release (DR/EC) 40 mg PO BID 90 Days Qty: 180 0RF alum-mag hydroxide-simeth [Mag-Al Plus] 200-200-20 mg/5 mL Suspension 30 ml PO Q6H 30 Days Qty: 0 0RF oxycodone 5 mg tablet 5 mg PO Q8H PRN (Reason: pain) Qty: 12 0RF magnesium oxide [MagOx] 400 mg (241.3 mg magnesium) tablet 400 mg PO QDAY metoprolol succinate 25 mg tablet extended release 24 hr 25 mg PO BID pantoprazole [address] for susp in packet 40 mg PO QDAY prednisone 10 mg tablet 5 mg PO BID rizatriptan 5 mg tablet 5 mg PO Q2H PRN (Reason: migraine headache) Rx Instructions: do not exceed 6 doses per 24 hrs sucralfate 1 gram tablet 1 g PO BID tramadol 50 mg tablet 50 mg PO BID PRN (Reason: pain) trazodone 50 mg tablet 50 mg PO QDAY valacyclovir 500 mg tablet 500 mg PO QDAY sutimlimab-jome 50 mg/mL solution 6,500 mg IV Q2W Print Language: Albanian Stand Alone Forms: PCP List
--- NOTE | 2024-12-19 16:14 | ED Physician Documentation ---
ED Addendum Addendum Addendum: Care to me from Dr. Gifford at 3 PM shift change. Briefly this is a 74-year-old woman who overdosed and he had presented to the hospitalist who requested we talk with poison control. Our charge nurse did commend benzodiazepines if she seizes and monitoring of the QTc and QRS complexes. EKG done at 1602 and interpreted independently by me demonstrates normal sinus rhythm with rate of 66, flat T waves throughout with normal QTc and QRS complexes. Discussed with Dr. Osorio for admission at 4:[address] in observation Condition: Guarded Discharge Plan Discharge Patient Disposition: ED Place in Observation Condition: Fair Clinical Impression: Acute alteration in mental status, Drug overdose, intentional, Depressed Prescriptions: No Action valacyclovir 500 MG tablet 500 mg ORAL DAILY dextroamphetamine-amphetamine [Adderall XR] 30 mg capsule,extended release 24hr 30 mg PO DAILY Patient Comments: take 1 capsule by mouth once daily propranolol 10 mg tablet 10 - 20 mg PO TID PRN (Reason: anxiety) Patient Comments: take 1-2 tablets by mouth three times a day if needed for anxiety multivitamin Tablet 1 tab PO DAILY pantoprazole [Protonix] 40 mg tablet,delayed release (DR/EC) 40 mg PO BID 90 Days Qty: 180 0RF alum-mag hydroxide-simeth [Mag-Al Plus] 200-200-20 mg/5 mL Suspension 30 ml PO Q6H 30 Days Qty: 0 0RF oxycodone 5 mg tablet 5 mg PO Q8H PRN (Reason: pain) Qty: 12 0RF magnesium oxide [MagOx] 400 mg (241.3 mg magnesium) tablet 400 mg PO QDAY metoprolol succinate 25 mg tablet extended release 24 hr 25 mg PO BID pantoprazole [address] for susp in packet 40 mg PO QDAY prednisone 10 mg tablet 5 mg PO BID rizatriptan 5 mg tablet 5 mg PO Q2H PRN (Reason: migraine headache) Rx Instructions: do not exceed 6 doses per 24 hrs sucralfate 1 gram tablet 1 g PO BID tramadol 50 mg tablet 50 mg PO BID PRN (Reason: pain) trazodone 50 mg tablet 50 mg PO QDAY valacyclovir 500 mg tablet 500 mg PO QDAY sutimlimab-jome 50 mg/mL solution 6,500 mg IV Q2W Print Language: Wolof Stand Alone Forms: PCP List
--- NOTE | 2024-12-19 18:04 | HISTORY & PHYSICAL EXAMINATION ---
Chief Complaint Chief Complaint Chief Complaint: OD History of Present Illness Admitted From Admitted From:: Home with daughter History Obtained From History obtained from: Interview with patient's daughter History of Present Illness HPI Comment/Other: 74-year-old female who has been having increased falls recently and suffered a close rib fracture about a month ago. Other history atrial fibrillation. She told her daughter earlier in the day on 12/18 that she was going to take a bunch of trazodone. Family checked on her at 8 PM on 12/18, and found her unresponsive with snoring respirations. They checked her medication cabinet and assumed that she took as many as 6 of her oxycodone 5 mg. She also has access to trazodone, but there was still plenty of this leftover. EMS was called and she was brought to the hospital Patient has a POLST form that states she is DNR/DNI, comfort measures only. Because of this, she was managed as comfort measures only overnight. Discussion was had with multiple levels of hospital administration regarding care going forward, as patient did report suicidal intent with this overdose. After discussion with administration and with patient's family, decision was made to have her undergo a brief workup and pursue very conservative medical measures. CT head was performed which showed mild atrophy and chronic small vessel ischemic change. UDS was positive for opiates/oxycodone. VBG was performed which did not show any significant CO2 retention. Patient is still unresponsive. Poison control was contacted by ER provider, and they recommended observation with telemetry to monitor QRS and QTc and to administer benzos if any signs of seizure arise. Hospitalist was contacted for observation for altered mental status secondary to intentional overdose Meds/Allgy Home Medications Ambulatory Orders Medication Instructions Recorded Confirmed valacyclovir 500 mg tablet 500 mg ORAL DAILY 11/23/13 12/19/24 dextroamphetamine-amphetamine ER 30 mg PO DAILY 12/19/24 30 mg 24hr capsule,extend release (Adderall XR) propranolol 10 mg tablet 10 - 20 mg PO PRN PRN anxiet y 03/21/24 12/19/24 rizatriptan 5 mg tablet 5 mg PO Q2H PRN migraine hea dache 04/30/24 12/19/24 tramadol 50 mg tablet 50 mg PO BID PRN pain 12/19/24 prednisone 5 mg tablet 5 mg PO DAILY 12/19/2412/19 trazodone 100 mg tablet 100 mg PO DAILY PRN muscle s pasm 12/19/24 12/19/24 Allergies Allergies Allergy/AdvReac Type Severity Reaction Status Date / Time lovastatin Allergy Severe Palpitations/Dry Verified 12/19/24 03:47 mouth/ Confusion Sulfa (Sulfonamide Allergy Intermediate Rash/Hives Verified 12/19/24 03:47 Antibiotics) albuterol Allergy Unknown Verified 12/19/24 03:47 ciprofloxacin (From Cipro) Allergy Rash Verified 12/19/24 03:47 levofloxacin (From Levaquin) Allergy Rash Verified 12/19/24 03:47 oxycodone (From Percocet) Allergy Headache Verified 12/19/24 03:47 prednisone Allergy Unknown Verified 12/19/24 03:47 acetaminophen (From Percocet) AdvReac Headache Verified 12/19/24 03:47 bupropion (From Wellbutrin) AdvReac Anxiety Verified 12/19/24 03:47 hydromorphone AdvReac Headache Verified 12/19/24 03:47 lamotrigine (From Lamictal) AdvReac Tachycardia Verified 12/19/24 03:47 nitrofurantoin AdvReac Nausea Verified 12/19/24 03:47 PFSH Active Problems All Active Problems (Updated 12/19/24 @ 15:26 by Nilo Gifford MD) Depressed (Chronic) Drug overdose, intentional (Acute) Acute alteration in mental status (Acute) Closed rib fracture (Acute) Fall from ground level (Acute) Cystitis (Acute) Thrombosed external hemorrhoid (Acute) Rash (Acute) Hemolytic anemia (Acute) Symptomatic anemia (Acute) Blood loss anemia (Acute) Anemia (Acute) Atrial fibrillation (Acute) Left knee sprain (Acute) Neck muscle strain (Acute) Medical History Medical History Paroxysmal atrial fibrillation Anemia Bleeding duodenal ulcer (~02/2024) Bile reflux gastritis (~02/2024) Erosive gastritis (~02/2024) History of Bravo's esophagus Osteoarthritis Weakness Constipation History of colon polyps Surgical History Surgical History History of esophagogastroduodenoscopy (EGD) (~03/22/24) 2023: bleeding duodenal ulcer, bile reflux gastritis [2014 (barretts), 2016, 2019 (barretts), 2020] History of colonoscopy with polypectomy (~03/22/24) diverticulosis History of lumbar fusion (~06/05/15) L4-5 History of arthroscopic knee surgery 2 ACL replacement /1 meniscus tear History of ovarian cystectomy History of tubal ligation History of tonsillectomy Social History Social History Smoking Status: Unknown if ever smoked If you are a former smoker, when did you quit? (Date/Year): 2014 Number of Years Smoked: 28 How many cigarettes a day do you smoke? (20 cigarettes=1 Pk): 6 Second hand tobacco smoke exposure: No Do you dip or chew tobacco?: No Do you vape?: No Patient requests smoking cessation consult: No Initiate information on smoking cessation: No Living arrangement: At home Living Condition: With family Level: Independent Do you feel safe in your home environment?: Yes (unobtainable) History of physical, verbal, emotional, or financial abuse?: No (unobtainable) Substance Use: former substance user Substance Use Details: Marijuana POLST Patient has POLST: No Review of Systems Status of ROS: 10 or more systems reviewed and unremarkable except as noted in history and below Exam Exam Vital Signs: Vital Signs x48h Pulse Resp Pulse Ox O2 Flow Rate 12/19/24 17:46 86 18 96 5 12/19/24 13:41 86 L 3 Constitutional Unresponsive elderly female, snoring respirations Eyes PERRL Chest inspection of chest normal Respiratory Snoring respirations. Audible gurgling that clears with suction Cardiovascular normal heart rate noted Gastrointestinal abdomen normal to inspection Extremities normal to inspection Neurology GCS calculation - Eye opening: None Verbal response: None Motor response: Withdraws to Pain [place] Coma Scale total score: 6 Psychiatry Unresponsive Skin skin color normal Conclusion/Plan Problem List (1) Drug overdose, intentional: Plan: Family reports that this is likely an overdose on her oxycodone, Possibly also Trazodone Patient is responsive only to deep suctioning at time of my interview Snoring respirations, NPA placed by RT Suction as needed Continuous pulse ox, telemetry EKG every 12 hours Social work consult (2) Atrial fibrillation: Plan: Family reports history of this. I see no anticoagulant or rate controlling meds on her home med list. Her heart rate is currently 86. Will maintain current regimen and monitor on telemetry Qualifiers: Atrial fibrillation type: paroxysmal Qualified Code(s): I48.0 - Paroxysmal atrial fibrillation Plan Place in observation DNR/DNI Her daughter is her surrogate decision maker Lab Results Lab results reviewed: Yes 12/19/24 08:42 12/19/24 08:42 Core Measures Anticipated LOS I expect patient to be DC'd or transferred within 96 hours.: Yes DVT/VTE - Prophylaxis VTE/DVT Prophylaxis med ordered at admit?: Yes
--- NOTE | 2024-12-19 18:29 | PHARMACY PROGRESS NOTE ---
Best Possible Medication History Admit Date and Time: 12/19/24 1653 Home Medications Medication Instructions Recorded Confirmed Type valacyclovir 500 mg tablet 500 mg ORAL DAILY 11/23/13 12/19/24 History dextroamphetamine-amphetamine ER 30 mg PO DAILY 12/19/24 History 30 mg 24hr capsule,extend release (Adderall XR) propranolol 10 mg tablet 10 - 20 mg PO PRN PRN anxiet y 03/21/24 12/19/24 History rizatriptan 5 mg tablet 5 mg PO Q2H PRN migraine hea dache 04/30/24 12/19/24 History tramadol 50 mg tablet 50 mg PO BID PRN pain 12/19/24 History prednisone 5 mg tablet 5 mg PO DAILY 12/19/2412/19 History trazodone 100 mg tablet 100 mg PO DAILY PRN muscle s pasm 12/19/24 12/19/24 History Processed by: Pharmacy (Medication reconciliation completed by Field SpecialistNivia) Medications reviewed in ED?: No Medication History completed: Yes Patient Interview: Pt unable to participate Secondary Source(s): Other family member (patient's daughter) and Pharmacy records [facility] Statement: As the person ultimately responsible for medication therapy, providers are able to order a medication from an existing home medication list in [facility] via the "Reconcile Routine" prior to Confirmation of that medication by legal support assistant. Such practice is discouraged except when the physician, in their clinical judgment, deems that a medical need exists for a medication without regard to previous use.
[2024-12-19] MEDS ORDERED: ONDANSETRON 4 MG/2 ML VIAL IVP PRN (18:51)
[2024-12-19] MEDS: NALOXONE 0.4 MG/ML VIAL IVP ONE (19:05)
[2024-12-19] MEDS: LACTATED RINGERS 1,000 ML IV SCH (19:09)
[2024-12-19] MEDS: SODIUM CHLORIDE FLUSH 0.9% 10 ML SYRINGE IVP SCH (19:43)
[2024-12-19] MEDS ORDERED: NALOXONE 0.4 MG/ML VIAL IVP PRN (21:44)
[2024-12-19 21:50] LABS: ETOH - ETHANOL < 10.0 mg/dL
[2024-12-20 04:53] LABS: HCT - HEMATOCRIT 39.7 % (37.0-47.0); HGB - HEMOGLOBIN 13.5 g/dL (12.0-16.0); MEAN PLATELET VOLUME 10.8 fL (7.9-10.8); NRBC ABSOLUTE COUNT (AUTO) 0.00 x10^3/uL; NUCLEATED RED BLOOD CELLS AUTO 0.0 /100WBC; PLT - PLATELET COUNT 161 10^3/uL (130-450); RED CELL DISTRIBUTION WIDTH 12.7 % (12.0-15.0)
[2024-12-20 05:10] LABS: BUN - BLOOD UREA NITROGEN 21.0 mg/dL (6-20); CARBON DIOXIDE - CO2 22.0 mmol/L (21-32); CREATININE 0.8 mg/dL (0.6-1.3); GFR - MDRD 70.0 (>89)
[2024-12-20] MEDS: ZINC OXIDE 20% OINT 60 GM TUBE TP SCH (09:14)
[2024-12-20] MEDS: ENOXAPARIN 40 MG/0.4 ML SYRINGE SUBQ SCH (09:15)
[2024-12-20] MEDS: HYDROmorphone 0.5 MG/0.5 ML SYRINGE IVP PRN (10:11)
--- NOTE | 2024-12-20 11:30 | PROVIDER PROGRESS NOTE ---
<Statement entered by David Banks DNP - 12/20/24 21:20> Patient was seen and examined by me with a separate encounter after being seen by KATIE student. I reviewed the student's documentation including patient history, physical examination, laboratory, imaging, clinical assessment and treatment plan. I have discussed the management of the patient with the student, and with the patient. There are no changes. Briefly, patient in observation for intentional overdose on trazodone and oxycodone. Change in inpatient status as she continues to require hospital management of her symptoms. See other notes for updates in hospital course throughout the day Subjective Prog Note Date Prog Note Date: 12/20/24 Prog Note Time: 12:09 Subjective Pt reports feeling: Improved Subjective: Patient is slightly improved in general appearance, she has been making eye contact with her daughters. Daughters were concerned that medical measures were meeting the patient's wishes as well as they felt their mother was having bad anxiety. Current Medications Current Medications Current Medications: Current Medications Generic Name Dose Route Start Last Admin Trade Name Freq PRN Reason Stop Dose Admin Enoxaparin Sodium 40 mg 12/20/24 09:00 12/20/24 09:15 Enoxaparin 40 Mg/0.4 Ml Syringe SUBQ 40 mg DAILY DENIZ Administration Hydromorphone HCl 0.5 mg 12/20/24 10:07 12/20/24 10:11 Hydromorphone 0.5 Mg/0.5 Ml Syringe IVP 0.5 mg Q2H PRN Administration Severe Pain (Level 7-10) Hydroxyzine Pamoate 25 mg 12/20/24 08:34 Hydroxyzine Pamoate 25 Mg Capsule PO QPM PRN Anxiety Lactated Ringer's 1,000 mls @ 100 mls/hr 12/19/24 18:51 12/20/24 05:13 Lr IV 100 mls/hr .Q10H DENIZ Administration Multi-Ingredient Ointment 1 applic 12/20/24 09:00 12/20/24 09:14 Zinc Oxide 20% Oint 60 Gm Tube TP 1 applic BID DENIZ Administration Naloxone HCl 0.4 mg 12/19/24 21:44 Naloxone 0.4 Mg/Ml Vial IVP Q30M PRN RR sustained <14 Ondansetron HCl 4 mg 12/19/24 18:51 Ondansetron 4 Mg/2 Ml Vial IVP Q6HR PRN Nausea / Vomiting Sodium Chloride 10 ml 12/19/24 18:51 Sodium Chloride Flush 0.9% 10 Ml Syringe IVP PRN PRN NEEDED PER PROVIDER ORDERS Sodium Chloride 10 ml 12/19/24 18:51 12/20/24 09:15 Sodium Chloride Flush 0.9% 10 Ml Syringe IVP 10 ml 0100,0900,1700 DENIZ Administration Objective Vital Signs/Intake & Output Reviewed Vital Signs: Yes Vital Signs: Vital Signs x48h Temp Pulse Resp BP Pulse Ox O2 Flow Rate 12/20/24 10:16 88 18 142/83 H 91 L 6 12/20/24 09:05 36.6 C 92 20 164/98 H 92 45 12/20/24 09:00 45 12/20/24 04:03 45 12/20/24 03:48 36.7 C 87 18 160/89 H 93 45 12/20/24 03:31 45 12/20/24 03:30 45 Intake & Output: Intake & Output 12/17/24 12/18/24 12/19/24 12/20/24 23:59 23:59 23:59 23:59 Intake Total 1000 / 1000 1000 / 1000 Output Total 100 / 100 Balance 900 / 900 1000 / 1000 Weight (kg) 69 kg Objective General Appearance: positive Alert and Anxious Eyes Bilateral: positive Normal inspection, PERRL, EOMI, No lid inflammation and No scleral icterus Cardiovascular: positive Tachycardia Lab Results 12/20/24 15:45 12/20/24 15:45 Other Labs: Lab Results x24hrs 12/20/24 12/19/24 Range/Units 04:37 21:20 WBC 10.5 (4.8-10.8) x10^3/uL RBC 3.99 L (4.20-5.40) 10^6/uL Hgb 13.5 (12.0-16.0) g/dL Hct 39.7 (37.0-47.0) % MCV 99.5 H (81.0-99.0) fL MCH 33.8 H (27.0-31.0) pg MCHC 34.0 (32.0-36.0) g/dL RDW 12.7 (12.0-15.0) % Plt Count 161 (130-450) 10^3/uL MPV 10.8 (7.9-10.8) fL Neut # (Auto) 8.5 H (1.5-6.6) 10^3/uL Lymph # (Auto) 1.0 L (1.5-3.5) 10^3/uL [place] # (Auto) 0.9 (0.0-1.0) 10^3/uL Eos # (Auto) 0.0 (0.0-0.7) 10^3/uL Baso # (Auto) 0.0 (0.0-0.1) 10^3/uL Absolute Nucleated RBC 0.00 x10^3/uL Nucleated RBC % 0.0 /100WBC Sodium 138 (135-145) mmol/L Potassium 3.8 (3.5-4.5) mmol/L Chloride 102 (101-111) mmol/L Carbon Dioxide 22 (21-32) mmol/L Anion Gap 14.0 H (6-13) BUN 21 H (6-20) mg/dL Creatinine 0.8 (0.6-1.3) mg/dL Estimated GFR (MDRD) 70 L (>89) Glucose 144 H (74-104) mg/dL Calcium 9.4 (8.5-10.3) mg/dL Acetaminophen 0.7 ug/mL Ethyl Alcohol < 10.0 mg/dL ABX Reporting Has patient been on IV antibiotics over the past 48 hours?: No Assessment/Plan Problem List (1) Drug overdose, intentional: Impression: Family still maintains this was likely an overdose of her oxycodone which matches her positive lab findings but this does not exclude the possibility of Trazodone. Speaking with the family they expressed that she has been struggling with long standing depression due to her passing away a couple years. Family has stated has expressed suicidal thoughts in the past related to her depression. Family requested one-on-one meeting with social work to converse about the intentional overdose. Current monitoring of patient is under the direction and guidance of poison control. Closely monitoring ECGs for QRS and QTc prolongation, hypotension, respiratory depression, and seizures. She is currently 40 hours post ingestion and we are continuing to monitor her airway/breathing and most recent ECG sinus tach with no QTc prolongation. Patient is ever so slightly more alert, her respiration are no longer snorous and weaned down the high flow oxygenation and removed nasal trumpet. Qualifiers: Encounter type: initial encounter Qualified Code(s): T50.902A - Poisoning by unspecified drugs, medicaments and biological substances, intentional self-harm, initial encounter (2) Atrial fibrillation: Impression: Family reports history of A Fib. Home med list reveals no anticoagulant or rate controlling meds. Her heart rate is currently 91. Will maintain current regimen and monitor on telemetry with ECGs q12h. Qualifiers: Atrial fibrillation type: paroxysmal Qualified Code(s): I48.0 - Paroxysmal atrial fibrillation (3) Depressed: Impression: Longstanding for a couple years, reported by daughters since the of her a couple years ago.
[2024-12-20 13:03] VITALS: TEMP 97.7
[2024-12-20] MEDS: LACTATED RINGERS 1,000 ML IV ONE (14:43)
[2024-12-20] MEDS: cloNIDine 0.2 MG PATCH TOP SCH (14:43)
[2024-12-20 16:21] VITALS: BP 156/123
[2024-12-20] MEDS: LORazepam 2 MG/ML VIAL IVP PRN (16:33)
[2024-12-20 17:09] LABS: HCT - HEMATOCRIT 40.0 % (37.0-47.0); HGB - HEMOGLOBIN 13.3 g/dL (12.0-16.0); MEAN PLATELET VOLUME 11.6 fL (7.9-10.8); NRBC ABSOLUTE COUNT (AUTO) 0.00 x10^3/uL; NUCLEATED RED BLOOD CELLS AUTO 0.0 /100WBC; PLT - PLATELET COUNT 175 10^3/uL (130-450); RED CELL DISTRIBUTION WIDTH 13.1 % (12.0-15.0)
[2024-12-20 17:28] LABS: ALT ALANINE AMINOTRANSFERASE 26.0 IU/L (10-60); AST ASPARTATE AMINOTRANSFERASE 38.0 IU/L (10-42); BUN - BLOOD UREA NITROGEN 17.0 mg/dL (6-20); CARBON DIOXIDE - CO2 22.0 mmol/L (21-32); CREATININE 0.7 mg/dL (0.6-1.3); GFR - MDRD 82.0 (>89)
[2024-12-20 17:36] LABS: TROPONIN I HIGH SENSITIVITY 4696.6 ng/L (2.3-14.8)
--- NOTE | 2024-12-20 17:46 | CT Report ---
PROCEDURE: CT Angio Chest INDICATIONS: tachycardia, + D-dimer CONTRAST: Omni 300 80ml TECHNIQUE: After the administration of intravenous contrast, 2 mm axial images were acquired from the pulmonary apices to the posterior costophrenic angles during the arterial phase. In addition, 1 mm lung kernel and 5 mm soft tissue kernel reconstructions were performed. 3-dimensional coronal oblique maximum intensity projection (MIP) reformats, 8 mm axial MIP, and 5 mm coronal and sagittal MPR reformats were then performed through the thorax. For radiation dose reduction, the following was used: automated exposure control, adjustment of mA and/or kV according to patient size. COMPARISON: CT chest on 11/23/2024 FINDINGS: Image quality: Excellent. Large vessels: No filling defects within the opacified pulmonary arteries, accounting for motion and contrast timing. No evidence of acute aortic syndrome or aortic aneurysm. Lungs and pleura: Bilateral, left worse than right, consolidations in the lower lobes with near total consolidation of the left lower lobe and segmental consolidation of the posterior, consolidation of the right lower lobe. There is partial consolidation of the medial and lateral basilar segments of the right lower lobe. No pleural effusions. No pneumothorax. No suspicious pulmonary nodules which require follow up. Mediastinum: Heart size is normal. No pericardial effusion. Ectasia of the ascending thoracic aorta measures 4.4 cm. No mediastinal adenopathy by size criteria. Chest wall and lower neck: Thyroid is unremarkable. No axillary or supraclavicular adenopathy by size. Bilateral subpectoral breast implants. Infolding of the right breast implant, concerning for prior rupture. Bones: No aggressive osseous abnormality. Poor visualization of the prior nondisplaced right anterior fifth and sixth rib fractures. Poor visualization of the right anterior lateral seventh rib fracture. This is due to overlying respiratory motion. Upper Abdomen: Unremarkable. IMPRESSION: 1. No pulmonary embolus. 2. Bilateral, left worse than right, lower lobe consolidations, concerning for multifocal pneumonia. 3. Ectasia of the ascending thoracic aorta measures 4.4 cm. Recommend follow-up chest CTA in 12 months. Reviewed by: Kwame Umanzor MD on 12/20/2024 5:43 PM PDT Approved by: Kwame Umanzor MD on 12/20/2024 5:43 PM PDT Station ID: [id number]
--- NOTE | 2024-12-20 18:46 | ADVANCE CARE PLANNING NOTE ---
Advance Care Planning Planning Encounter Date: 12/20/24 Purpose: To determine goals of care and ongoing workup Parties in Attendance: Patient daughter x 2 Decisional Capacity of the Patient: Patient is incapacitated, grossly Encephalopathic Diagnosis for Encounter (1) Drug overdose, intentional: Qualifiers: Encounter type: initial encounter Qualified Code(s): T50.902A - Poisoning by unspecified drugs, medicaments and biological substances, intentional self-harm, initial encounter Summary: Patient had a intentional drug overdose with oxycodone and trazodone at 8 PM on 12/18. As such, she is likely out of the window for effects of these medications. She is slowly recovering mentally (2) Depressed: Summary: Patient has had severe depression ever since the loss of her spouse. She has made several suicidal comments to her family, and this is her first actual suicide attempt Encounter Subjective/Patient's Story: Patient has been severely depressed ever since the loss of her spouse. She lives alone, and her daughters call and visit often. Still independent, managing her own medication. She had completed a POLST form prior to the of her spouse that indicated that she would want comfort measures only in the event of illness leading to incapacitation Objective/Medical Story: Patient had intentional overdose on the night of 12/18. She was initially placed on comfort measures only in the ED. Given the fact that this is a intentional overdose, case was reviewed by several levels of administration within the hospital, and decision was made to pursue workup and conservative medical management at the direction of her daughters at bedside. Workup was consistent with drug overdose with opiates. Poison control was contacted, we have been following their recommendations. Today, she started exhibiting tachycardia. EKG reveals this is sinus tachycardia. She has been quite agitated and confused. Given well score of 1, D-dimer was checked which was grossly positive. She underwent CTA chest which did not show any PE, but did show bilateral lower lobe pneumonia. Patient was on high flow last night, weaned off to by nasal cannula, and is now being placed back on high flow given desaturation. She also is exhibiting markedly elevated troponins Goals of Care: Multiple conversations have been had with family today regarding ongoing results of her workup as well as plan of care. They recognize that she has been incredibly depressed, and has stated that she would hate to find herself in the hospital. Nonetheless, given her history of suicidal remarks, it is believed that we should attempt conservative medical management so that if she recovers from this she seek counseling for these suicidal thoughts. Plan: I am checking blood cultures. I am starting the patient on ceftriaxone and azithromycin for community-acquired pneumonia. We will continue IV fluids, antibiotics, anticoagulation and will support her oxygenation with high flow nasal cannula. We will attempt no heroic measures. I will continue to trend her troponins, but if they continue to go up, no transfer will be made for invasive cardiac intervention Code Status: Do Not Attempt Resuscitation Time spent on advance care plannin
[2024-12-20] MEDS: cefTRIAXone 1 GM VIAL IVP SCH (19:33)
[2024-12-20] MEDS: AZITHROMYCIN INJ 500 MG in SODIUM CHLORIDE 0.9% 250 ML IV SCH (19:41)
[2024-12-20] MEDS: MORPHINE 2 MG/ML CARPUJECT IVP PRN (20:49)
[2024-12-20] MEDS: ENOXAPARIN 80 MG/0.8 ML SYRINGE SUBQ SCH (20:55)
[2024-12-20] MEDS ORDERED: GLYCOPYRROLATE 1 MG/5 ML VIAL SUBQ PRN (21:14)
[2024-12-20] MEDS ORDERED: ATROPINE 1% OPHTH DROPS 2 ML SL PRN (21:14)
[2024-12-20] MEDS ORDERED: CARBOXYMETHYLCELLULOSE OPHTH DROPS EACHEYE PRN (21:14)
--- NOTE | 2024-12-20 21:24 | MISCELLANEOUS PROVIDER NOTE ---
Miscellaneous Provider Note - Note: We were notified this afternoon at approximately 1430 that the patient's heart rate was 197. ECGs were ordered which identified the patient was in sinus tachycardia which evolved into supraventricular tachycardia. Patient was given IV fluids for tachycardia and Dilaudid PRN this was ordered secondary to agitation, clinical signs of discomfort. Labs were placed for D-Dimer, Wells score was 1 due to heart rate. D-Dimer resulted at >1050.0 which prompted additional ordering of CTPE, Troponin, CBC, CMP PRN ECG was ordered and identified SVT with Long QTc at a rate of 177, additional ECGs revealed ranges from 130-170 through out the night. Troponin resulted at 4696.6, CTPE showed concern for bibasilar pneumonia, it did not show PE but we empirically treated for PE using Lovonox at 1mg/kg based on the patients clinical presentation, CBC showed elevation of WBCs, CMP was unremarkable. Notified by RT low o2 sats (88% @15l facemask), there was increasing oxygen requirements from this AM requiring elevation to oxymask then to highflow with HFNC. Patient had continued agitation despite IV Dilaudid and Ativan so IV Benadryl was added. Provider to bedside with ongoing discussion of goal of care and further management with DPOA. [facility] [employer] for events after this.
--- NOTE | 2024-12-20 21:29 | MISCELLANEOUS PROVIDER NOTE ---
Miscellaneous Provider Note - Note: Called back into patient's room by DPELKE. Patient is still agitated and spite of multimodal anxiolytic/narcotic regimen. Medical updates as in previous note. Discussed goals of care again, given that patient has made it very clear in previous conversations with family members that if something were to happen she would not want to be placed in the hospital. She was terrified by the dying process for her , as they report he was suffering for a week before receiving authorization for medical assistance in dying. We discussed the ethical ruiz area that we are in, as the patient came in for a suicide attempt. We discussed that we have done conservative management of this overdose, but now she has a respiratory failure likely with multiple etiologies. DPOA reports that at this point, she feels that this is a new problem, and that as such we should honor the patient's previous wishes of not pursuing medical management in the event of life-threatening illness. I discussed the case with on-call hospital administration, relating that the patient is incapacitated, delirious, obviously in discomfort. I relayed that the DPOA for healthcare is expressing that the patient would not want to continue treatment at this point. After this discussion, it is clear that honoring the DPOA's wishes is in line with the patient's previously stated goals of care, even and spite of her previous presentation for suicidal attempt Comfort care orders placed. We are de-escalating from high flow nasal cannula to regular nasal cannula for comfort. I believe that her is imminent, so she will remain in the hospital on comfort measures
[2024-12-20] MEDS: SCOPOLAMINE PATCH TOP SCH (22:05)
[2024-12-20] MEDS: MORPHINE SOL 10 MG/0.5 ML ORAL SYRINGE PO PRN (22:12)
[2024-12-20] MEDS: HALOPERIDOL 5 MG/ML VIAL IVP PRN (22:14)
[2024-12-21] MEDS ORDERED: CARBOXYMETHYLCELLULOSE OPHTH DROPS EACHEYE PRN (09:34)
[2024-12-21] MEDS: LORazepam 2 MG/ML VIAL IVP PRN (10:21)
[2024-12-21] MEDS: BACLOFEN 10 MG TABLET PO SCH (10:22)
--- NOTE | 2024-12-21 11:52 | PROVIDER PROGRESS NOTE ---
Subjective Prog Note Date Prog Note Date: 12/21/24 Prog Note Time: 12:34 Subjective Pt reports feeling: Improved Subjective: She is sleeping comfortably this AM. Family reports she is very comfortable on Baclofen. Her daughters are at bedside, and concerned about her path forward. She had been very agitated yesterday afternoon post hygiene, and had been painful, still unable to speak since the intial ingestion. Family states that since she was put on comfort care last night at approx 10pm, that she was still mildly agitated. Current Medications Current Medications Current Medications: Current Medications Generic Name Dose Route Start Last Admin Trade Name Freq PRN Reason Stop Dose Admin Atropine Sulfate 1 - 4 drops 12/20/24 21:14 Atropine 1% Ophth Drops 2 Ml SL Q2H PRN Excessive secretions Baclofen 10 mg 12/21/24 10:00 12/21/24 10:22 Baclofen 10 Mg Tablet PO 10 mg TID DENIZ Administration Carboxymethylcellulose 1 drops 12/20/24 21:14 Carboxymethylcellulose Ophth Drops EACHEYE QID PRN Dry Eye Carboxymethylcellulose 1 drops 12/21/24 09:34 Carboxymethylcellulose Ophth Drops EACHEYE QID PRN Dry Eye Clonidine HCl 1 patch 12/20/24 15:00 12/20/24 14:43 Clonidine 0.2 Mg Patch TOP 1 patch Q7D DENIZ Administration Diphenhydramine HCl 25 mg 12/20/24 20:35 12/20/24 20:51 Diphenhydramine Inj 50 Mg/Ml Vial IVP 25 mg Q6H PRN Administration Allergy Symptoms Glycopyrrolate 0.2 mg 12/20/24 21:14 Glycopyrrolate 1 Mg/5 Ml Vial SUBQ Q4H PRN Excessive secretions Haloperidol 1 mg 12/20/24 21:14 12/21/24 07:47 Haloperidol 5 Mg/Ml Vial IVP 1 mg Q2H PRN Administration Agitation Hydroxyzine Pamoate 25 mg 12/20/24 08:34 Hydroxyzine Pamoate 25 Mg Capsule PO QPM PRN Anxiety Lorazepam 1 mg 12/21/24 06:57 12/21/24 10:21 Lorazepam 2 Mg/Ml Vial IVP 1 mg Q2H PRN Administration Anxiety Morphine Sulfate 1 mg 12/20/24 20:36 12/21/24 10:21 Morphine 2 Mg/Ml Carpuject IVP 1 mg Q2HR PRN Administration respiratory discomfort Morphine Sulfate 10 mg 12/20/24 21:14 12/21/24 07:46 Morphine Ele 10 Mg/0.5 Ml Oral Syringe PO 10 mg Q2HR PRN Administration Moderate Pain (Level 4-6)/SOA Multi-Ingredient Ointment 1 applic 12/20/24 09:00 12/21/24 08:51 Zinc Oxide 20% Oint 60 Gm Tube TP 1 applic BID DENIZ Administration Ondansetron HCl 4 mg 12/19/24 18:51 Ondansetron 4 Mg/2 Ml Vial IVP Q6HR PRN Nausea / Vomiting Scopolamine HBr 1 patch 12/20/24 22:00 12/20/24 22:05 Scopolamine Patch TOP 1 patch Q3D DENIZ Administration Sodium Chloride 10 ml 12/19/24 18:51 Sodium Chloride Flush 0.9% 10 Ml Syringe IVP PRN PRN NEEDED PER PROVIDER ORDERS Sodium Chloride 10 ml 12/19/24 18:51 12/21/24 08:51 Sodium Chloride Flush 0.9% 10 Ml Syringe IVP 10 ml 0100,0900,1700 DENIZ Administration Objective Vital Signs/Intake & Output Reviewed Vital Signs: Yes Vital Signs: Vital Signs x48h O2 Flow Rate 12/21/24 08:00 2 Intake & Output: Intake & Output 12/18/24 12/19/24 12/20/24 12/21/24 23:59 23:59 23:59 23:59 Intake Total 1000 / 1000 3668 / 3668 Output Total 100 / 100 Balance 900 / 900 3668 / 3668 Weight (kg) 69 kg Objective General Appearance: positive Mild distress and Lethargic Eyes Bilateral: positive Normal inspection, Conjunctivae nml and No scleral icterus Neck: positive Nml inspection, No JVD and Trachea midline Cardiovascular: positive Tachycardia Skin: positive Color nml, Warm and Diaphoresis Neurologic/Psychiatric: positive Disoriented to person, Disoriented to place, Disoriented to time and Slurred/abnml speech (Cannot speak since the initial ingestion); negative Oriented x3 Lab Results 12/20/24 15:45 12/20/24 15:45 Other Labs: Lab Results x24hrs 12/20/24 Range/Units 15:45 WBC 11.3 H (4.8-10.8) x10^3/uL RBC 3.98 L (4.20-5.40) 10^6/uL Hgb 13.3 (12.0-16.0) g/dL Hct 40.0 (37.0-47.0) % MCV 100.5 H (81.0-99.0) fL MCH 33.4 H (27.0-31.0) pg MCHC 33.3 (32.0-36.0) g/dL RDW 13.1 (12.0-15.0) % Plt Count 175 (130-450) 10^3/uL MPV 11.6 H (7.9-10.8) fL Neut # (Auto) 8.5 H (1.5-6.6) 10^3/uL Lymph # (Auto) 1.7 (1.5-3.5) 10^3/uL [place] # (Auto) 1.1 H (0.0-1.0) 10^3/uL Eos # (Auto) 0.0 (0.0-0.7) 10^3/uL Baso # (Auto) 0.0 (0.0-0.1) 10^3/uL Absolute Nucleated RBC 0.00 x10^3/uL Nucleated RBC % 0.0 /100WBC D-Dimer > 1050.0 H (200.0-255.0) ng/mL Sodium 138 (135-145) mmol/L Potassium 3.7 (3.5-4.5) mmol/L Chloride 104 (101-111) mmol/L Carbon Dioxide 22 (21-32) mmol/L Anion Gap 12.0 (6-13) BUN 17 (6-20) mg/dL Creatinine 0.7 (0.6-1.3) mg/dL Estimated GFR (MDRD) 82 L (>89) Glucose 159 H (74-104) mg/dL Calcium 9.2 (8.5-10.3) mg/dL Total Bilirubin 1.1 H (0.2-1.0) mg/dL AST 38 (10-42) IU/L ALT 26 (10-60) IU/L Alkaline Phosphatase 48 (42-121) IU/L Troponin I High Sens 4696.6 H* (2.3-14.8) ng/L Total Protein 6.3 L (6.4-8.9) g/dL Albumin 3.8 (3.2-5.5) g/dL Globulin 2.5 (2.1-4.2) g/dL Albumin/Globulin Ratio 1.5 (1.0-2.2) ABX Reporting Has patient been on IV antibiotics over the past 48 hours?: No Sepsis Event Note (H) Evaluation Current Stage of Sepsis: Sepsis Possible source of Sepsis: positive Pulmonary Sepsis Criteria Sepsis Criteria: Recorded Heart Rate greater than 90 bpm Assessment/Plan Problem List (1) Drug overdose, intentional: Impression: 74F who has been having increased falls recently and suffered a close rib fracture about a month ago. History atrial fibrillation and depression stemming from her husbands cancer diagnosis and over the course of the last 5 years. 12/18 Patient told her daughter she was going to take a bunch of Trazodone and at 8 PM that night family found her unresponsive with snoring respirations. Family states that after inspection of her medications she also consumed 6, 5mg Oxycodone tablets. Patient was transported to ER. Patient became agitated and displayed concerning vitals for a possible PE. After discussion with administration and with patient's family, decision was made to have her undergo a brief workup and pursue very conservative medical measures. Blood cultures and labs were taken, work up revealed bibasilar pneumonia and clinical presentation of PE (grossly elevated D-Dimer and Troponin) with a negative CTPE. Decision was made to give patient Lovonox for suspected PE. Patient is DNR/DNI and was placed on comfort measures since last night at 10pm at the will of the DP. Lovonox was discontinued because its not in line with care plan. Family at bedside this AM. Spoke with family this morning about consultation to hospice, we discussed potential qualifying conditions that meet hospice criteria or lack there of. Continue Baclofen PRN for patient comfort. Qualifiers: Encounter type: initial encounter Qualified Code(s): T50.902A - Poisoning by unspecified drugs, medicaments and biological substances, intentional self-harm, initial encounter (2) Pneumonia: Impression: CT revealed bibasilar pneumonia. Not treating because its not in line with patient's goals. She was treated with 1 dose Azithromycin but is currently discontinued. (3) Sepsis: Impression: Sepsis Criteria Met: - HR above >90 Patient looks septic (diaphoretic and tachycardic) and has been diagnosed via CT bibasilar pneumonia most likely from a fall that resulted in rib fractures a month ago. (4) Atrial fibrillation: Impression: Family reports history of A Fib. Home med list reveals no anticoagulant or rate controlling meds. Her heart rate is currently 120. Qualifiers: Atrial fibrillation type: paroxysmal Qualified Code(s): I48.0 - Paroxysmal atrial fibrillation (5) Depressed: Impression: Family reports, longstanding depression stemming from her husbands cancer diagnosis and over the course of the last 5 years.
--- NOTE | 2024-12-22 18:33 | PROVIDER PROGRESS NOTE ---
Subjective Prog Note Date Prog Note Date: 12/22/24 Subjective Subjective: She is comfortable. has been verbal with her family today. There is family present at bedside 13/10. 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 Current Medications Current Medications Current Medications: Current Medications Generic Name Dose Route Start Last Admin Trade Name Freq PRN Reason Stop Dose Admin Atropine Sulfate 1 - 4 drops 12/20/24 21:14 Atropine 1% Ophth Drops 2 Ml SL Q2H PRN Excessive secretions Baclofen 10 mg 12/21/24 10:00 12/22/24 08:27 Baclofen 10 Mg Tablet PO 10 mg TID DENIZ Administration Carboxymethylcellulose 1 drops 12/20/24 21:14 Carboxymethylcellulose Ophth Drops EACHEYE QID PRN Dry Eye Carboxymethylcellulose 1 drops 12/21/24 09:34 Carboxymethylcellulose Ophth Drops EACHEYE QID PRN Dry Eye Clonidine HCl 1 patch 12/20/24 15:00 12/20/24 14:43 Clonidine 0.2 Mg Patch TOP 1 patch Q7D DENIZ Administration Diphenhydramine HCl 25 mg 12/20/24 20:35 12/20/24 20:51 Diphenhydramine Inj 50 Mg/Ml Vial IVP 25 mg Q6H PRN Administration Allergy Symptoms Glycopyrrolate 0.2 mg 12/20/24 21:14 Glycopyrrolate 1 Mg/5 Ml Vial SUBQ Q4H PRN Excessive secretions Haloperidol 1 mg 12/20/24 21:14 12/21/24 07:47 Haloperidol 5 Mg/Ml Vial IVP 1 mg Q2H PRN Administration Agitation Hydroxyzine Pamoate 25 mg 12/20/24 08:34 Hydroxyzine Pamoate 25 Mg Capsule PO QPM PRN Anxiety Lorazepam 1 mg 12/21/24 06:57 12/22/24 17:08 Lorazepam 2 Mg/Ml Vial IVP 1 mg Q2H PRN Administration Anxiety Morphine Sulfate 1 mg 12/20/24 20:36 12/22/24 17:08 Morphine 2 Mg/Ml Carpuject IVP 1 mg Q2HR PRN Administration respiratory discomfort Morphine Sulfate 10 mg 12/20/24 21:14 12/22/24 09:54 Morphine Ele 10 Mg/0.5 Ml Oral Syringe PO 10 mg Q2HR PRN Administration Moderate Pain (Level 4-6)/SOA Multi-Ingredient Ointment 1 applic 12/20/24 09:00 12/22/24 08:20 Zinc Oxide 20% Oint 60 Gm Tube TP 1 applic BID DENIZ Administration Ondansetron HCl 4 mg 12/19/24 18:51 Ondansetron 4 Mg/2 Ml Vial IVP Q6HR PRN Nausea / Vomiting Scopolamine HBr 1 patch 12/20/24 22:00 12/20/24 22:05 Scopolamine Patch TOP 1 patch Q3D DENIZ Administration Sodium Chloride 10 ml 12/19/24 18:51 Sodium Chloride Flush 0.9% 10 Ml Syringe IVP PRN PRN NEEDED PER PROVIDER ORDERS Sodium Chloride 10 ml 12/19/24 18:51 12/22/24 16:40 Sodium Chloride Flush 0.9% 10 Ml Syringe IVP 10 ml 0100,0900,1700 DENIZ Administration Objective Vital Signs/Intake & Output Reviewed Vital Signs: Yes Vital Signs: Vital Signs x48h O2 Flow Rate 12/21/24 08:00 2 Intake & Output: Intake & Output 12/19/24 12/20/24 12/21/24 12/22/24 23:59 23:59 23:59 23:59 Intake Total 1000 / 1000 3668 / 3668 279 / 279 Output Total 100 / 100 Balance 900 / 900 3668 / 3668 279 / 279 Weight (kg) 69 kg Objective General Appearance: positive Mild distress and Lethargic Eyes Bilateral: positive Normal inspection, Conjunctivae nml and No scleral icterus Neck: positive Nml inspection, No JVD and Trachea midline Cardiovascular: positive Tachycardia (by exam) Skin: positive Color nml, Warm and Diaphoresis Neurologic/Psychiatric: positive Oriented x3, Disoriented to person, Disoriented to place, Disoriented to time and Slurred/abnml speech (has been verbal with family today) Lab Results 12/20/24 15:45 12/20/24 15:45 Other Labs: Lab Results x24hrs 12/20/24 Range/Units 15:45 WBC 11.3 H (4.8-10.8) x10^3/uL RBC 3.98 L (4.20-5.40) 10^6/uL Hgb 13.3 (12.0-16.0) g/dL Hct 40.0 (37.0-47.0) % MCV 100.5 H (81.0-99.0) fL MCH 33.4 H (27.0-31.0) pg MCHC 33.3 (32.0-36.0) g/dL RDW 13.1 (12.0-15.0) % Plt Count 175 (130-450) 10^3/uL MPV 11.6 H (7.9-10.8) fL Neut # (Auto) 8.5 H (1.5-6.6) 10^3/uL Lymph # (Auto) 1.7 (1.5-3.5) 10^3/uL [place] # (Auto) 1.1 H (0.0-1.0) 10^3/uL Eos # (Auto) 0.0 (0.0-0.7) 10^3/uL Baso # (Auto) 0.0 (0.0-0.1) 10^3/uL Absolute Nucleated RBC 0.00 x10^3/uL Nucleated RBC % 0.0 /100WBC D-Dimer > 1050.0 H (200.0-255.0) ng/mL Sodium 138 (135-145) mmol/L Potassium 3.7 (3.5-4.5) mmol/L Chloride 104 (101-111) mmol/L Carbon Dioxide 22 (21-32) mmol/L Anion Gap 12.0 (6-13) BUN 17 (6-20) mg/dL Creatinine 0.7 (0.6-1.3) mg/dL Estimated GFR (MDRD) 82 L (>89) Glucose 159 H (74-104) mg/dL Calcium 9.2 (8.5-10.3) mg/dL Total Bilirubin 1.1 H (0.2-1.0) mg/dL AST 38 (10-42) IU/L ALT 26 (10-60) IU/L Alkaline Phosphatase 48 (42-121) IU/L Troponin I High Sens 4696.6 H* (2.3-14.8) ng/L Total Protein 6.3 L (6.4-8.9) g/dL Albumin 3.8 (3.2-5.5) g/dL Globulin 2.5 (2.1-4.2) g/dL Albumin/Globulin Ratio 1.5 (1.0-2.2) ABX Reporting Has patient been on IV antibiotics over the past 48 hours?: No Sepsis Event Note (H) Evaluation Current Stage of Sepsis: Sepsis Possible source of Sepsis: positive Pulmonary Assessment/Plan Problem List (1) Drug overdose, intentional: Impression: 74F who has been having increased falls recently and suffered a close rib fracture about a month ago. History atrial fibrillation and depression stemming from her husbands cancer diagnosis and over the course of the last 5 years. 12/18 Patient told her daughter she was going to take a bunch of Trazodone and at 8 PM that night family found her unresponsive with snoring respirations. Family states that after inspection of her medications she also consumed 6, 5mg Oxycodone tablets. Patient was transported to ER. Patient became agitated and displayed concerning vitals for a possible PE. After discussion with administration and with patient's family, decision was made to have her undergo a brief workup and pursue very conservative medical measures. Blood cultures and labs were taken, work up revealed bibasilar pneumonia and clinical presentation of PE (grossly elevated D-Dimer and Troponin) with a negative CTPE. Decision was made to give patient Lovonox for suspected PE. Patient is DNR/DNI and was placed on comfort measures since last night at 10pm at the will of the DP. Lovonox was discontinued because its not in line with care plan. Family sitting parikh with patient at bedside. She has been NPO by choice for several days now, but prior to that had received large amounts of fluids in active medical treatment. Continue Baclofen PRN for patient comfort. Qualifiers: Encounter type: initial encounter Qualified Code(s): T50.902A - Poisoning by unspecified drugs, medicaments and biological substances, intentional self-harm, initial encounter (2) Pneumonia: Impression: CT revealed bibasilar pneumonia. Not treating because its not in line with patient's goals. She was treated with 1 dose Azithromycin but is currently discontinued. (3) Sepsis: Impression: has been diagnosed via CT bibasilar pneumonia most likely from a fall that resulted in rib fractures a month ago. treatment of sepsis not in line with goals of care. (4) Atrial fibrillation: Impression: Family reports history of A Fib. Home med list reveals no anticoagulant or rate controlling meds. Qualifiers: Atrial fibrillation type: paroxysmal Qualified Code(s): I48.0 - Paroxysmal atrial fibrillation (5) Depressed: Impression: Family reports, longstanding depression stemming from her husbands cancer diagnosis and over the course of the last 5 years.
--- NOTE | 2024-12-23 11:47 | PROVIDER PROGRESS NOTE ---
Subjective Prog Note Date Prog Note Date: 12/23/24 Subjective Subjective: Family at bedside. She is sleeping, but has been dreaming vividly, and the dreams are disturbing to patient and her daughters. Current Medications Current Medications Current Medications: Current Medications Generic Name Dose Route Start Last Admin Trade Name Freq PRN Reason Stop Dose Admin Atropine Sulfate 1 - 4 drops 12/20/24 21:14 Atropine 1% Ophth Drops 2 Ml SL Q2H PRN Excessive secretions Baclofen 10 mg 12/21/24 10:00 12/23/24 06:32 Baclofen 10 Mg Tablet PO Not Given TID DENIZ Carboxymethylcellulose 1 drops 12/20/24 21:14 Carboxymethylcellulose Ophth Drops EACHEYE QID PRN Dry Eye Carboxymethylcellulose 1 drops 12/21/24 09:34 Carboxymethylcellulose Ophth Drops EACHEYE QID PRN Dry Eye Clonidine HCl 1 patch 12/20/24 15:00 12/20/24 14:43 Clonidine 0.2 Mg Patch TOP 1 patch Q7D DENIZ Administration Diphenhydramine HCl 25 mg 12/20/24 20:35 12/20/24 20:51 Diphenhydramine Inj 50 Mg/Ml Vial IVP 25 mg Q6H PRN Administration Allergy Symptoms Glycopyrrolate 0.2 mg 12/20/24 21:14 Glycopyrrolate 1 Mg/5 Ml Vial SUBQ Q4H PRN Excessive secretions Haloperidol 1 mg 12/20/24 21:14 12/23/24 08:50 Haloperidol 5 Mg/Ml Vial IVP 1 mg Q2H PRN Administration Agitation Hydroxyzine Pamoate 25 mg 12/20/24 08:34 Hydroxyzine Pamoate 25 Mg Capsule PO QPM PRN Anxiety Lorazepam 1 mg 12/21/24 06:57 12/23/24 10:23 Lorazepam 2 Mg/Ml Vial IVP 1 mg Q2H PRN Administration Anxiety Morphine Sulfate 1 mg 12/20/24 20:36 12/22/24 22:50 Morphine 2 Mg/Ml Carpuject IVP 1 mg Q2HR PRN Administration respiratory discomfort Morphine Sulfate 10 mg 12/20/24 21:14 12/23/24 11:18 Morphine Ele 10 Mg/0.5 Ml Oral Syringe PO 10 mg Q2HR PRN Administration Moderate Pain (Level 4-6)/SOA Multi-Ingredient Ointment 1 applic 12/20/24 09:00 12/23/24 10:03 Zinc Oxide 20% Oint 60 Gm Tube TP 1 applic BID DENIZ Administration Olanzapine 5 mg 12/23/24 11:00 12/23/24 11:18 Olanzapine Odt 5 Mg Tablet TL 5 mg BID DENIZ Administration Ondansetron HCl 4 mg 12/19/24 18:51 Ondansetron 4 Mg/2 Ml Vial IVP Q6HR PRN Nausea / Vomiting Scopolamine HBr 1 patch 12/20/24 22:00 12/20/24 22:05 Scopolamine Patch TOP 1 patch Q3D DENIZ Administration Sodium Chloride 10 ml 12/19/24 18:51 Sodium Chloride Flush 0.9% 10 Ml Syringe IVP PRN PRN NEEDED PER PROVIDER ORDERS Sodium Chloride 10 ml 12/19/24 18:51 12/23/24 08:50 Sodium Chloride Flush 0.9% 10 Ml Syringe IVP 10 ml 0100,0900,1700 DENIZ Administration Objective Vital Signs/Intake & Output Reviewed Vital Signs: Yes Vital Signs: Vital Signs x48h O2 Flow Rate 12/21/24 08:00 2 Intake & Output: Intake & Output 12/20/24 12/21/24 12/22/24 12/23/24 23:59 23:59 23:59 23:59 Intake Total 3668 / 3668 279 / 279 Balance 3668 / 3668 279 / 279 Objective General Appearance: positive Mild distress and Lethargic Eyes Bilateral: positive Normal inspection, Conjunctivae nml and No scleral icterus Neck: positive Nml inspection, No JVD and Trachea midline Cardiovascular: positive Tachycardia (by exam) Skin: positive Color nml, Warm and Diaphoresis Neurologic/Psychiatric: positive Oriented x3, Disoriented to person, Disoriented to place, Disoriented to time and Slurred/abnml speech (does not volunteer information to me, but does agree that her dreams are bothersome and would like some relief. ) Lab Results 12/20/24 15:45 12/20/24 15:45 Other Labs: Lab Results x24hrs 12/20/24 Range/Units 15:45 WBC 11.3 H (4.8-10.8) x10^3/uL RBC 3.98 L (4.20-5.40) 10^6/uL Hgb 13.3 (12.0-16.0) g/dL Hct 40.0 (37.0-47.0) % MCV 100.5 H (81.0-99.0) fL MCH 33.4 H (27.0-31.0) pg MCHC 33.3 (32.0-36.0) g/dL RDW 13.1 (12.0-15.0) % Plt Count 175 (130-450) 10^3/uL MPV 11.6 H (7.9-10.8) fL Neut # (Auto) 8.5 H (1.5-6.6) 10^3/uL Lymph # (Auto) 1.7 (1.5-3.5) 10^3/uL [place] # (Auto) 1.1 H (0.0-1.0) 10^3/uL Eos # (Auto) 0.0 (0.0-0.7) 10^3/uL Baso # (Auto) 0.0 (0.0-0.1) 10^3/uL Absolute Nucleated RBC 0.00 x10^3/uL Nucleated RBC % 0.0 /100WBC D-Dimer > 1050.0 H (200.0-255.0) ng/mL Sodium 138 (135-145) mmol/L Potassium 3.7 (3.5-4.5) mmol/L Chloride 104 (101-111) mmol/L Carbon Dioxide 22 (21-32) mmol/L Anion Gap 12.0 (6-13) BUN 17 (6-20) mg/dL Creatinine 0.7 (0.6-1.3) mg/dL Estimated GFR (MDRD) 82 L (>89) Glucose 159 H (74-104) mg/dL Calcium 9.2 (8.5-10.3) mg/dL Total Bilirubin 1.1 H (0.2-1.0) mg/dL AST 38 (10-42) IU/L ALT 26 (10-60) IU/L Alkaline Phosphatase 48 (42-121) IU/L Troponin I High Sens 4696.6 H* (2.3-14.8) ng/L Total Protein 6.3 L (6.4-8.9) g/dL Albumin 3.8 (3.2-5.5) g/dL Globulin 2.5 (2.1-4.2) g/dL Albumin/Globulin Ratio 1.5 (1.0-2.2) ABX Reporting Has patient been on IV antibiotics over the past 48 hours?: No Sepsis Event Note (H) Evaluation Current Stage of Sepsis: Sepsis Possible source of Sepsis: positive Pulmonary Sepsis Criteria Sepsis Criteria: Recorded Heart Rate greater than 90 bpm Assessment/Plan Problem List (1) Drug overdose, intentional: Impression: 74F who has been having increased falls recently and suffered a close rib fracture about a month ago. History atrial fibrillation and depression stemming from her husbands cancer diagnosis and over the course of the last 5 years. 12/18 Patient told her daughter she was going to take a bunch of Trazodone and at 8 PM that night family found her unresponsive with snoring respirations. Family states that after inspection of her medications she also consumed 6, 5mg Oxycodone tablets. Patient was transported to ER. Patient became agitated and displayed concerning vitals for a possible PE. After discussion with administration and with patient's family, decision was made to have her undergo a brief workup and pursue very conservative medical measures. Blood cultures and labs were taken, work up revealed bibasilar pneumonia and clinical presentation of PE (grossly elevated D-Dimer and Troponin) with a negative CTPE. Decision was made to give patient Lovonox for suspected PE. Patient is DNR/DNI and was placed on comfort measures since 12/20 at 10pm at the will of the [facility]. Lovonox was discontinued because its not in line with care plan. Family sitting parikh with patient at bedside. She has been NPO by choice for several days now, but prior to that had received large amounts of fluids in active medical treatment. Continue Baclofen PRN for patient comfort. I am adding olanzapine 5mg BID to help with her nightmares which I think may be terminal agitation. Daughters in agreement and appreciate. The daughters are sad and hopeful that this journey does not last much longer for this patient. Qualifiers: Encounter type: initial encounter Qualified Code(s): T50.902A - Poisoning by unspecified drugs, medicaments and biological substances, intentional self-harm, initial encounter (2) Pneumonia: Impression: CT revealed bibasilar pneumonia. Not treating because its not in line with patient's goals. She was treated with 1 dose Azithromycin but is currently discontinued. (3) Sepsis: Impression: has been diagnosed via CT bibasilar pneumonia most likely from a fall that resulted in rib fractures a month ago. treatment of sepsis not in line with goals of care. (4) Atrial fibrillation: Impression: Family reports history of A Fib. Home med list reveals no anticoagulant or rate controlling meds. Qualifiers: Atrial fibrillation type: paroxysmal Qualified Code(s): I48.0 - Paroxysmal atrial fibrillation (5) Depressed: Impression: Family reports, longstanding depression stemming from her husbands cancer diagnosis and over the course of the last 5 years. I have spent 28 minutes in the care of this patient today. This includes time [id number], monitoring the patient's signs, symptoms, evaluation of medication effectiveness and patient's response to treatment.
[2024-12-23] MEDS ORDERED: BACLOFEN 10 MG TABLET PO PRN (11:58)
[2024-12-23] MEDS: LORazepam 2 MG/ML VIAL IVP PRN (22:19)
--- NOTE | 2024-12-24 09:54 | PROVIDER PROGRESS NOTE ---
Subjective Prog Note Date Prog Note Date: 12/24/24 Subjective Subjective: daughters report more frequent periods of apnea. Baclofen changed yesterday to PRN (can have side effect of bad dreams), and added olanzepine, which seems to be adding to her comfort. Current Medications Current Medications Current Medications: Current Medications Generic Name Dose Route Start Last Admin Trade Name Freq PRN Reason Stop Dose Admin Atropine Sulfate 1 - 4 drops 12/20/24 21:14 Atropine 1% Ophth Drops 2 Ml SL Q2H PRN Excessive secretions Baclofen 10 mg 12/23/24 11:58 Baclofen 10 Mg Tablet PO TID PRN spasm Carboxymethylcellulose 1 drops 12/20/24 21:14 Carboxymethylcellulose Ophth Drops EACHEYE QID PRN Dry Eye Carboxymethylcellulose 1 drops 12/21/24 09:34 Carboxymethylcellulose Ophth Drops EACHEYE QID PRN Dry Eye Clonidine HCl 1 patch 12/20/24 15:00 12/20/24 14:43 Clonidine 0.2 Mg Patch TOP 1 patch Q7D DENIZ Administration Diphenhydramine HCl 25 mg 12/20/24 20:35 12/20/24 20:51 Diphenhydramine Inj 50 Mg/Ml Vial IVP 25 mg Q6H PRN Administration Allergy Symptoms Glycopyrrolate 0.2 mg 12/20/24 21:14 Glycopyrrolate 1 Mg/5 Ml Vial SUBQ Q4H PRN Excessive secretions Haloperidol 1 mg 12/20/24 21:14 12/23/24 17:14 Haloperidol 5 Mg/Ml Vial IVP 1 mg Q2H PRN Administration Agitation Hydroxyzine Pamoate 25 mg 12/20/24 08:34 Hydroxyzine Pamoate 25 Mg Capsule PO QPM PRN Anxiety Lorazepam 2 mg 12/23/24 21:54 12/24/24 04:20 Lorazepam 2 Mg/Ml Vial IVP 2 mg Q2H PRN Administration Anxiety Morphine Sulfate 1 mg 12/20/24 20:36 12/23/24 22:20 Morphine 2 Mg/Ml Carpuject IVP 1 mg Q2HR PRN Administration respiratory discomfort Morphine Sulfate 10 mg 12/20/24 21:14 12/24/24 08:06 Morphine Ele 10 Mg/0.5 Ml Oral Syringe PO 10 mg Q2HR PRN Administration Moderate Pain (Level 4-6)/SOA Multi-Ingredient Ointment 1 applic 12/20/24 09:00 12/23/24 20:29 Zinc Oxide 20% Oint 60 Gm Tube TP Not Given BID DENIZ Olanzapine 10 mg 12/23/24 21:00 12/23/24 20:29 Olanzapine Odt 5 Mg Tablet TL 10 mg BID DENIZ Administration Ondansetron HCl 4 mg 12/19/24 18:51 Ondansetron 4 Mg/2 Ml Vial IVP Q6HR PRN Nausea / Vomiting Scopolamine HBr 1 patch 12/20/24 22:00 12/23/24 22:19 Scopolamine Patch TOP 1 patch Q3D DENIZ Administration Sodium Chloride 10 ml 12/19/24 18:51 Sodium Chloride Flush 0.9% 10 Ml Syringe IVP PRN PRN NEEDED PER PROVIDER ORDERS Sodium Chloride 10 ml 12/19/24 18:51 12/24/24 00:42 Sodium Chloride Flush 0.9% 10 Ml Syringe IVP 10 ml 0100,0900,1700 DENIZ Administration Objective Vital Signs/Intake & Output Reviewed Vital Signs: Yes Vital Signs: Vital Signs x48h O2 Flow Rate 12/21/24 08:00 2 Intake & Output: Intake & Output 12/21/24 12/22/24 12/23/24 12/24/24 23:59 23:59 23:59 23:59 Intake Total 279 / 279 Output Total 275 / 275 Balance 279 / 279 -275 / -275 Objective General Appearance: positive No acute distress and Other (resting does not awaken) ENT: positive ENT inspection nml Neck: positive Nml inspection Respiratory: positive No respiratory distress Cardiovascular: positive Tachycardia Abdomen: positive No distention Skin: positive Color nml and Other (skin is hot and dry) Neurologic/Psychiatric: positive Other (obtunded) Lab Results 12/20/24 15:45 12/20/24 15:45 Sepsis Event Note (H) Evaluation Current Stage of Sepsis: Sepsis Possible source of Sepsis: positive Pulmonary Sepsis Criteria Sepsis Criteria: Recorded Heart Rate greater than 90 bpm Assessment/Plan Problem List (1) Drug overdose, intentional: Impression: 74F who has been having increased falls recently and suffered a close rib fracture about a month ago. History atrial fibrillation and depression stemming from her husbands cancer diagnosis and over the course of the last 5 years. 12/18 Patient told her daughter she was going to take a bunch of Trazodone and at 8 PM that night family found her unresponsive with snoring respirations. Family states that after inspection of her medications she also consumed 6, 5mg Oxycodone tablets. Patient was transported to ER. Patient became agitated and displayed concerning vitals for a possible PE. After discussion with administration and with patient's family, decision was made to have her undergo a brief workup and pursue very conservative medical measures. Blood cultures and labs were taken, work up revealed bibasilar pneumonia and clinical presentation of PE (grossly elevated D-Dimer and Troponin) with a negative CTPE. Decision was made to give patient Lovonox for suspected PE. Patient is DNR/DNI and was placed on comfort measures since 12/20 at 10pm [facility] Lovonox was discontinued because its not in line with care plan. Family sitting parikh with patient at bedside. She has been NPO by choice for several days now, but prior to that had received large amounts of fluids in active medical treatment. Continue Baclofen PRN for patient comfort- but she has not needed it. I increased olanzepine to 10mg BID to help with her nightmares which I think may be terminal agitation. Daughters in agreement and appreciate, they state that this has been a very helpful intervention The daughters are sad and hopeful that this journey does not last much longer for this patient. She is having periods of apnea up to 40sec per her daughter Nanette who has been at the bedside almost constantly. I believe that is imminent for this patient. Qualifiers: Encounter type: initial encounter Qualified Code(s): T50.902A - Poisoning by unspecified drugs, medicaments and biological substances, intentional self-harm, initial encounter (2) Pneumonia: Impression: CT revealed bibasilar pneumonia. Not treating because its not in line with patient's goals. She was treated with 1 dose Azithromycin but is currently discontinued. (3) Sepsis: Impression: has been diagnosed via CT bibasilar pneumonia most likely from a fall that resulted in rib fractures a month ago. treatment of sepsis not in line with goals of care. (4) Atrial fibrillation: Impression: Family reports history of A Fib. Home med list reveals no anticoagulant or rate controlling meds. Qualifiers: Atrial fibrillation type: paroxysmal Qualified Code(s): I48.0 - Paroxysmal atrial fibrillation (5) Depressed: Impression: Family reports, longstanding depression stemming from her husbands cancer diagnosis and over the course of the last 5 years. This patient's diagnosis and treatment plan was discussed this AM with attending physician as a part of multi disciplinary rounding meeting. I have spent 26 minutes in the care of this patient today. This includes time [id number], monitoring the patient's signs, symptoms, evaluation of medication effectiveness and patient's response to treatment.
[2024-12-25] MEDS: MORPHINE 2 MG/ML CARPUJECT IVP PRN (18:00)
--- NOTE | 2024-12-25 20:23 | PROVIDER PROGRESS NOTE ---
Subjective Prog Note Date Prog Note Date: 12/25/24 Subjective Subjective: non verbal, periods of apnea, up to 40 seconds. Current Medications Current Medications Current Medications: Current Medications Generic Name Dose Route Start Last Admin Trade Name Freq PRN Reason Stop Dose Admin Atropine Sulfate 1 - 4 drops 12/20/24 21:14 Atropine 1% Ophth Drops 2 Ml SL Q2H PRN Excessive secretions Baclofen 10 mg 12/23/24 11:58 Baclofen 10 Mg Tablet PO TID PRN spasm Carboxymethylcellulose 1 drops 12/20/24 21:14 Carboxymethylcellulose Ophth Drops EACHEYE QID PRN Dry Eye Carboxymethylcellulose 1 drops 12/21/24 09:34 Carboxymethylcellulose Ophth Drops EACHEYE QID PRN Dry Eye Clonidine HCl 1 patch 12/20/24 15:00 12/20/24 14:43 Clonidine 0.2 Mg Patch TOP 1 patch Q7D DENIZ Administration Diphenhydramine HCl 25 mg 12/20/24 20:35 12/20/24 20:51 Diphenhydramine Inj 50 Mg/Ml Vial IVP 25 mg Q6H PRN Administration Allergy Symptoms Glycopyrrolate 0.2 mg 12/20/24 21:14 Glycopyrrolate 1 Mg/5 Ml Vial SUBQ Q4H PRN Excessive secretions Haloperidol 1 mg 12/20/24 21:14 12/25/24 18:00 Haloperidol 5 Mg/Ml Vial IVP 1 mg Q2H PRN Administration Agitation Hydroxyzine Pamoate 25 mg 12/20/24 08:34 Hydroxyzine Pamoate 25 Mg Capsule PO QPM PRN Anxiety Lorazepam 2 mg 12/23/24 21:54 12/25/24 14:10 Lorazepam 2 Mg/Ml Vial IVP 2 mg Q2H PRN Administration Anxiety Morphine Sulfate 2 mg 12/25/24 14:15 12/25/24 18:00 Morphine 2 Mg/Ml Carpuject IVP 2 mg Q1H PRN Administration respiratory discomfort Multi-Ingredient Ointment 1 applic 12/20/24 09:00 12/25/24 09:37 Zinc Oxide 20% Oint 60 Gm Tube TP 1 applic BID DENIZ Administration Olanzapine 10 mg 12/23/24 21:00 12/25/24 09:37 Olanzapine Odt 5 Mg Tablet TL 10 mg BID DENIZ Administration Ondansetron HCl 4 mg 12/19/24 18:51 Ondansetron 4 Mg/2 Ml Vial IVP Q6HR PRN Nausea / Vomiting Scopolamine HBr 1 patch 12/20/24 22:00 12/23/24 22:19 Scopolamine Patch TOP 1 patch Q3D DENIZ Administration Sodium Chloride 10 ml 12/19/24 18:51 Sodium Chloride Flush 0.9% 10 Ml Syringe IVP PRN PRN NEEDED PER PROVIDER ORDERS Sodium Chloride 10 ml 12/19/24 18:51 12/25/24 18:18 Sodium Chloride Flush 0.9% 10 Ml Syringe IVP 10 ml 0100,0900,1700 DENIZ Administration Objective Vital Signs/Intake & Output Reviewed Vital Signs: Yes Vital Signs: Vital Signs x48h O2 Flow Rate 12/21/24 08:00 2 Intake & Output: Intake & Output 12/22/24 12/23/24 12/24/24 12/25/24 23:59 23:59 23:59 23:59 Intake Total 0 / 0 Output Total 275 / 275 100 / 100 0 / 0 Balance -275 / -275 -100 / -100 0 / 0 Objective General Appearance: positive No acute distress and Other (resting does not awaken) ENT: positive ENT inspection nml Neck: positive Nml inspection Respiratory: positive No respiratory distress Cardiovascular: positive Tachycardia Abdomen: positive No distention Skin: positive Color nml and Other (skin is hot and dry) Neurologic/Psychiatric: positive Other (comatose) Lab Results 12/20/24 15:45 12/20/24 15:45 Sepsis Event Note (H) Evaluation Current Stage of Sepsis: Sepsis Possible source of Sepsis: positive Pulmonary Sepsis Criteria Sepsis Criteria: Recorded Heart Rate greater than 90 bpm Assessment/Plan Problem List (1) Drug overdose, intentional: Impression: 74F who has been having increased falls recently and suffered a close rib fracture about a month ago. History atrial fibrillation and depression stemming from her husbands cancer diagnosis and over the course of the last 5 years. 12/18 Patient told her daughter she was going to take a bunch of Trazodone and at 8 PM that night family found her unresponsive with snoring respirations. Family states that after inspection of her medications she also consumed 6, 5mg Oxycodone tablets. Patient was transported to ER. Patient became agitated and displayed concerning vitals for a possible PE. After discussion with administration and with patient's family, decision was made to have her undergo a brief workup and pursue very conservative medical measures. Blood cultures and labs were taken, work up revealed bibasilar pneumonia and clinical presentation of PE (grossly elevated D-Dimer and Troponin) with a negative CTPE. Decision was made to give patient Lovonox for suspected PE. Patient is DNR/DNI and was placed on comfort measures since 12/20 at 10pm [facility] Lovonox was discontinued because its not in line with care plan. Family sitting parikh with patient at bedside. She has been NPO by choice for several days now, but prior to that had received large amounts of fluids in active medical treatment. Continue Baclofen PRN for patient comfort- but she has not needed it. I increased olanzepine to 10mg BID to help with her nightmares which I think may be terminal agitation. Daughters in agreement and appreciate, they state that this has been a very helpful intervention The daughters are sad and hopeful that this journey does not last much longer for this patient. She is having periods of apnea up to 40sec per her daughter Nanette who has been at the bedside almost constantly. I believe that is imminent for this patient. This is the second day I have stated this. Given her comatose status, and periods of apnea, it likely will not be long. Discussions w daughter Nanette yesterday- she went to [place] for a long planned trip with other family and friends. She instructed that we are to call [facility] home when her mother does pass. Daughter Dunia at bedside this evening, she may leave and sleep at home. There is some feeling that Dynva might need to be alone to pass. Qualifiers: Encounter type: initial encounter Qualified Code(s): T50.902A - Poisoning by unspecified drugs, medicaments and biological substances, intentional self-harm, initial encounter (2) Pneumonia: Impression: CT revealed bibasilar pneumonia. Not treating because its not in line with patient's goals. She was treated with 1 dose Azithromycin but is currently discontinued. (3) Sepsis: Impression: has been diagnosed via CT bibasilar pneumonia most likely from a fall that resulted in rib fractures a month ago. treatment of sepsis not in line with goals of care. (4) Atrial fibrillation: Impression: Family reports history of A Fib. Home med list reveals no anticoagulant or rate controlling meds. Qualifiers: Atrial fibrillation type: paroxysmal Qualified Code(s): I48.0 - Paroxysmal atrial fibrillation (5) Depressed: Impression: Family reports, longstanding depression stemming from her husbands cancer diagnosis and over the course of the last 5 years. This patient's diagnosis and treatment plan was discussed this AM with attending physician as a part of multi disciplinary rounding meeting. I have spent 42 minutes in the care of this patient today. This includes time [id number], monitoring the patient's signs, symptoms, evaluation of medication effectiveness and patient's response to treatment.
[2024-12-26] MEDS: SODIUM CHLORIDE FLUSH 0.9% 10 ML SYRINGE IVP PRN (06:01)
[2024-12-26 13:39] VITALS: O2SAT 78
--- NOTE | 2024-12-26 18:55 | Discharge Summary ---
Discharge Summary Admit Date: 12/19/24 Discharge Date: 12/26/24 Discharging Provider: Maribel Pruitt PA-C Primary Care Provider: Rosa Dunn NP DIAGNOSES Discharge Diagnoses with Status of Each Condition: Possible intentional drug overdose Pneumonia sepsis atrial fibrillation Depression HPI History of Present Illness: 74-year-old female who has been having increased falls recently and suffered a close rib fracture about a month ago. Other history atrial fibrillation. She told her daughter earlier in the day on 12/18 that she was going to take a bunch of trazodone. Family checked on her at 8 PM on 12/18, and found her unresponsive with snoring respirations. They checked her medication cabinet and assumed that she took as many as 6 of her oxycodone 5 mg. She also has access to trazodone, but there was still plenty of this leftover. EMS was called and she was brought to the hospital Patient has a POLST form that states she is DNR/DNI, comfort measures only. Because of this, she was managed as comfort measures only overnight. Discussion was had with multiple levels of hospital administration regarding care going forward, as patient did report suicidal intent with this overdose. After discussion with administration and with patient's family, decision was made to have her undergo a brief workup and pursue very conservative medical measures. CT head was performed which showed mild atrophy and chronic small vessel ischemic change. UDS was positive for opiates/oxycodone. VBG was performed which did not show any significant CO2 retention. Patient is still unresponsive. Poison control was contacted by ER provider, and they recommended observation with telemetry to monitor QRS and QTc and to administer benzos if any signs of seizure arise. Hospitalist was contacted for observation for altered mental status secondary to intentional overdose HOSPITAL COURSE Hospital Course: Patient was admitted for brief diagnostic workup after intentional ingestion of substances. Overall unclear but we think it is possible that she took an overdose of trazodone also took as many of much as 30 mg of oxycodone. On hospital day 2 she developed tachycardia which was sinus tachycardia which then evolved into supraventricular tachycardia she was given fluid and Dilaudid as needed she had a D-dimer done which was elevated. She had a CT PE scan which was negative and her troponin which was about 5000. She was also diagnosed with bibasilar pneumonia and her CT PE was negative for pulmonary embolism but clinically she appeared to have a PE. She continued to be agitated and decision was made to place her on comfort care at the end of her second hospital day. Treatment was stopped at that time. She was then treated via comfort measures only for a period of days. The ultimate plan was for her to transition home to hospice. She needed hospice support in the home and hospice was not able to admit her for almost 1 week. She therefore remained here on comfort care with plans to disposition out of the hospital when hospice admission was available. However patient's became imminent and she at 1440 p.m. on 12/26/2024. Her daughter Dunia was notified immediately. ALLERGIES Allergies Allergy/AdvReac Type Severity Reaction Status Date / Time lovastatin Allergy Severe Palpitations/Dry Verified 12/19/24 03:47 mouth/ Confusion Sulfa (Sulfonamide Allergy Intermediate Rash/Hives Verified 12/19/24 03:47 Antibiotics) albuterol Allergy Unknown Verified 12/19/24 03:47 ciprofloxacin (From Cipro) Allergy Rash Verified 12/19/24 03:47 levofloxacin (From Levaquin) Allergy Rash Verified 12/19/24 03:47 oxycodone (From Percocet) Allergy Headache Verified 12/19/24 03:47 prednisone Allergy Unknown Verified 12/19/24 03:47 acetaminophen (From Percocet) AdvReac Headache Verified 12/19/24 03:47 bupropion (From Wellbutrin) AdvReac Anxiety Verified 12/19/24 03:47 hydromorphone AdvReac Headache Verified 12/19/24 03:47 lamotrigine (From Lamictal) AdvReac Tachycardia Verified 12/19/24 03:47 nitrofurantoin AdvReac Nausea Verified 12/19/24 03:47 MEDICATIONS Ambulatory Orders Medication Instructions Recorded Confirmed valacyclovir 500 mg tablet 500 mg ORAL DAILY 11/23/13 12/19/24 dextroamphetamine-amphetamine ER 30 mg PO DAILY 12/19/24 30 mg 24hr capsule,extend release (Adderall XR) propranolol 10 mg tablet 10 - 20 mg PO PRN PRN anxiet y 03/21/24 12/19/24 rizatriptan 5 mg tablet 5 mg PO Q2H PRN migraine hea dache 04/30/24 12/19/24 tramadol 50 mg tablet 50 mg PO BID PRN pain 12/19/24 prednisone 5 mg tablet 5 mg PO DAILY 12/19/2412/19 trazodone 100 mg tablet 100 mg PO DAILY PRN muscle s pasm 12/19/24 12/19/24 PHYSICAL EXAM AT DISCHARGE Vital Signs: Vital Signs x48h Pulse Resp Pulse Ox O2 Flow Rate 12/26/24 14:09 18 12/26/24 13:38 68 24 78 L 2 Physical Exam Other/Comments: She is without heartbeat or respirations. LABS 12/20/24 15:45 12/20/24 15:45 SEPSIS Current Stage of Sepsis: Sepsis Possible source of Sepsis: Pulmonary Sepsis Criteria: Recorded Heart Rate greater than 90 bpm TIME SPENT Time Spent in Discharge (Minutes): 45 Discharge Plan Discharge Patient Disposition: 20 Print Language: Tajik Date/Time: 12/26/24 14:40
--- OUTSIDE RECORDS SUMMARY | 2024-12-27 15:56 | EXTERNAL MEDICAL SUMMARY RPT | Continuity of Care Document ---
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 2024-11-11 13:57 [facility] 2024-11-23 15:04 Fracture of one rib, unspecified side, initial encounter [facility] closed fracture [facility] 2024-11-25 08:48 Other chest pain [facility] 2024-11-25 08:48 Unspecified injury of head, ini tial encounter [facility] 2024-11-25 08:48 Fracture of one rib, unspecified side, initial encounter [facility] closed fracture [facility] 2024-12-19 17:23 Altered mental status, unspecif ied [facility] 2024-12-19 17:23 Poisoning by unspeci fied drugs, medicaments and biological substances, intentional self-harm, [facility] 2024-12-19 18:16 Paroxysmal atrial fibrillation [facility] 2024-12-19 18:16 Altered mental status, unspecif ied [facility] 2024-12-19 18:16 Poisoning by unspeci fied drugs, medicaments and biological substances, intentional self-harm, [facility] 2024-12-20 08:36 Paroxysmal atrial fibrillation [facility] 2024-12-20 08:36 Altered mental status, unspecif ied [facility] 2024-12-20 08:36 Poisoning by unspeci fied drugs, medicaments and biological substances, intentional self-harm, initial encounter [facility] 2024-12-20 18:11 Paroxysmal atrial fibrillation [facility] 2024-12-20 18:11 Altered mental status, unspecif ied [facility] 2024-12-20 18:11 Poisoning by unspeci fied drugs, medicaments and biological substances, intentional self-harm, [facility]24-12-21 08:13 Depression, unspecified [facility] 2024-12-21 08:13 Paroxysmal atrial fibrillation [facility] 2024-12-21 08:13 Altered mental status, unspecif ied [facility] 2024-12-21 08:13 Poisoning by unspeci fied drugs, medicaments and biological substances, intentional self-harm, initial encounter [facility] 2024-12-21 15:35 Sepsis, unspecified [facility]24-12-21 15:35 Depression, unspecified [facility] 2024-12-21 15:35 Paroxysmal atrial fibrillation [facility] 2024-12-21 15:35 Pneumonia, unspecified organism [facility] 2024-12-21 15:35 Altered mental status, unspecif ied [facility] 2024-12-21 15:35 Poisoning by unspeci fied drugs, medicaments and biological substances, intentional self-harm, initial [facility] 2024-12-26 08:04 Unspecified coma [facility] 2024-12-26 18:54 Sepsis, unspecified organism [facility] 2024-12-26 18:54 Depression, unspecified [facility] 2024-12-26 18:54 Paroxysmal atrial fibrillation [facility] 2024-12-26 18:54 Pneumonia, unspecified organism [facility] 2024-12-26 18:54 Altered mental status, unspecif ied [facility] 2024-12-26 18:54 Poisoning by unspeci fied drugs, medicaments and biological substances, intentional self-harm, initial encounter [facility] 2024-12-26 19:08 Sepsis, unspecified organism [facility] 2024-12-26 19:08 Depression, unspecified [facility] 2024-12-26 19:08 Paroxysmal atrial fibrillation [facility] 2024-12-26 19:08 Pneumonia, unspecified organism [facility] 2024-12-26 19:08 Altered mental status, unspecif ied [facility] 2024-12-26 19:08 Poisoning by unspeci fied drugs, medicaments and biological substances, intentional self-harm, initial encounter [facility] 2024-12-26 20:27 Sepsis, unspecified organism [facility] 2024-12-26 20:27 Depression, unspecified [facility] 2024-12-26 20:27 Paroxysmal atrial fibrillation [facility] 2024-12-26 20:27 Pneumonia, unspecified organism [facility] 2024-12-26 20:27 Altered mental status, unspecif ied [facility] 2024-12-26 20:27 Poisoning by unspeci fied drugs, medicaments and biological substances, intentional self-harm, initial encounter [facility] 2024-12-27 09:50 Sepsis, unspecified organism [facility] 2024-12-27 09:50 Depression, unspecified [facility] 2024-12-27 09:50 Paroxysmal atrial fibrillation [facility] 2024-12-27 09:50 Pneumonia, unspecified organism [facility] 2024-12-27 09:50 Altered mental status, unspecif ied [facility] 2024-12-27 09:50 Poisoning by unspeci fied drugs, medicaments and biological substances, intentional self-harm, initial encounter [facility] 2024-12-27 09:50 Poisoning by multipl e unspecified drugs, medicaments and biological substances, intentional self-harm, [facility] Results/Labs test date facility value unit notes Result panel 1 NUCLEATED RED BLOOD CELLS AUTO 2024-11-23 11:48 [facility] 0.0 /100wbc (missing) BASOPHILS # (AUTO) 2024-11-23 11:48 [facility] 0.0 10 3/ul (missing) EOSINOPHILS # (AUTO) 2024-11-23 11:48 [facility] 0.0 10 3/ul (missing) NRBC ABSOLUTE COUNT (AUTO) 2024-11-23 11:48 [facility] 0 .00 x10 3/ul (missing) MONOCYTES # (AUTO) 2024-11-23 11:48 [facility] 0.3 10 3/ul (missing) LYMPHOCYTES # (AUTO) 2024-11-23 11:48 [facility] 1.1 10 3/ul (missing) MEAN PLATELET VOLUME 2024-11-23 11:48 [facility] 10.0 fl (missing) RED CELL DISTRIBUTION WIDTH 2024-11-23 11:48 [facility] 13.2 % (missing) HGB - HEMOGLOBIN 2024-11-23 11:48 [facility] 13.3 g /dl (missing) PLT - PLATELET COUNT 2024-11-23 11:48 [facility] 200 10 3/ul (missing) RED BLOOD COUNT 2024-11-23 11:48 [facility] 3.98 10 6/ul (missing) MEAN CORPUSCULAR HEMOGLOBIN 2024-11-23 11:48 [facility] 33.4 pg (missing) MEAN CORPUSCULAR HGB CONC 2024-11-23 11:48 [facility] 33 .6 g/dl (missing) HCT - HEMATOCRIT 2024-11-23 11:48 [facility] 39.6 % (missing) NEUTROPHILS # (AUTO) 2024-11-23 11:48 [facility] 6.2 10 3/ul (missing) WHITE BLOOD COUNT 2024-11-23 11:48 [facility] 7.7 x10 3/ul (missing) MEAN CORPUSCULAR VOLUME 2024-11-23 11:48 [facility] 99.5 fl (missing) Result panel 2 VBG BASE EXCESS 2024-12-19 08:42 [facility] -3.6 mmol/l (missing) NUCLEATED RED BLOOD CELLS AUTO 2024-12-19 08:42 [facility] 0.0 /100wbc (missing) BASOPHILS # (AUTO) 2024-12-19 08:42 [facility] 0.0 10 3/ul (missing) NRBC ABSOLUTE COUNT (AUTO) 2024-12-19 08:42 [facility] 0.00 x10 3/ul (missing) EOSINOPHILS # (AUTO) 2024-12-19 08:42 [facility] 0.1 10 3/ul (missing) MONOCYTES # (AUTO) 2024-12-19 08:42 [facility] 0.5 10 3/ul (missing) BILIRUBIN,TOTAL 2024-12-19 08:42 [facility] 0.5 mg/dl As of September 2022 testing method has changed, this may include reference ranges. CREATININE 2024-12-19 08:42 [facility] 1.0 mg/dl As of September 2022 testing method has changed, this may include reference ranges. LYMPHOCYTES # (AUTO) 2024-12-19 08:42 [facility] 1.1 10 3/ul (missing) MEAN CORPUSCULAR VOLUME 2024-12-19 08:42 [facility] 103.0 fl (missing) CHLORIDE 2024-12-19 08:42 [facility] 104 mmol/l As of September 2022 testing method has changed, this may include reference ranges. MEAN PLATELET VOLUME 2024-12-19 08:42 [facility] 11.2 fl (missing) PLT - PLATELET COUNT 2024-12-19 08:42 [facility] 122 10 3/ul (missing) RED CELL DISTRIBUTION WIDTH 2024-12-19 08:42 [facility] 13.1 % (missing) HGB - HEMOGLOBIN 2024-12-19 08:42 [facility] 13.2 g/dl (missing) SODIUM 2024-12-19 08:42 [facility] 139 mmol/l (missing) MAGNESIUM 2024-12-19 08:42 [facility] 2.0 mg/dl As of September 2022 testing method has changed, this may include reference ranges. ALBUMIN/GLOBULIN RATIO 2024-12-19 08:42 [facility] 2.1 (missing) (missing) GLOBULIN 2024-12-19 08:42 [facility] 2.2 g/dl (missing) VBG HCO3 2024-12-19 08:42 [facility] 22.8 mmol/l (missing) BUN - BLOOD UREA NITROGEN 2024-12-19 08:42 [facility] 24 mg/dl As of September 2022 testing method has changed, this may include reference ranges. LIPASE 2024-12-19 08:42 [facility] 24 u/l As of September 2022 testing method has changed, this may include reference ranges. VBG TOTAL CO2 2024-12-19 08:42 [facility] 24.2 mmol/l (missing) CARBON DIOXIDE - CO2 2024-12-19 08:42 [facility] 27 mmol/l As of September 2022 testing method has changed, this may include reference ranges. POTASSIUM 2024-12-19 08:42 [facility] 3.9 mmol/l As of September 2022 testing method has changed, this may include reference ranges. MEAN CORPUSCULAR HGB CONC 2024-12-19 08:42 [facility] 32.0 g/dl (missing) MEAN CORPUSCULAR HEMOGLOBIN 2024-12-19 08:42 [facility] 33.0 pg (missing) ALT ALANINE AMINOTRANSFERASE 2024-12-19 08:42 [facility] 35 iu/l As of September 2022 testing method has changed, this may include reference ranges. VBG PO2 2024-12-19 08:42 [facility] 37.3 mmhg (missing) RED BLOOD COUNT 2024-12-19 08:42 [facility] 4.00 10 6/ul (missing) NEUTROPHILS # (AUTO) 2024-12-19 08:42 [facility] 4.5 10 3/ul (missing) ALBUMIN 2024-12-19 08:42 [facility] 4.6 g/dl As of September 2022 testing method has changed, this may include reference ranges. HCT - HEMATOCRIT 2024-12-19 08:42 [facility] 41.2 % (missing) AST ASPARTATE AMINOTRANSFERASE 2024-12-19 08:42 [facility] 44 iu/l As of September 2022 testing method has changed, this may include reference ranges. VBG PCO2 2024-12-19 08:42 [facility] 44.4 mmhg (missing) GFR - MDRD 2024-12-19 08:42 [facility] 54 (missing) The IDMS-traceable MDRD Study Equation has been validated extensively in and populations between the ages of 18 and 70 with impaired kidney function (eGFR < 60 mL/min/1.73m2) and has shown good performance for patients with all common causes of kidney disease. Although this equation has not been validated for patients older than 70, an MDRD-derived eGFR may still be a useful tool for providers caring for patients older than 70. References: http://www.nkde p.nih.gov/lab-e valuation/gfr/c reatinine-stand ardization, last updated May 2011. ALKALINE PHOSPHATASE 2024-12-19 08:42 [facility] 56 iu/l As of September 2022 testing method has changed, this may include reference ranges. WHITE BLOOD COUNT 2024-12-19 08:42 [facility] 6.2 x10 3/ul (missing) TOTAL PROTEIN 2024-12-19 08:42 [facility] 6.8 g/dl As of September 2022 testing method has changed, this may include reference ranges. VBG OXYGEN SATURATION 2024-12-19 08:42 [facility] 60.0 % (missing) VBG PH 2024-12-19 08:42 [facility] 7.315 (missing) (missing) GLUCOSE 2024-12-19 08:42 [facility] 75 mg/dl As of September 2022 testing method has changed, this may include reference ranges. ANION GAP 2024-12-19 08:42 [facility] 8.0 (missing) (missing) CALCIUM 2024-12-19 08:42 [facility] 9.4 mg/dl As of September 2022 testing method has changed, this may include reference ranges. PLATELET ESTIMATE, MANUAL 2024-12-19 08:42 [facility] DECREASED (<130,000) (missing) (missing) SLIDE REVIEW? 2024-12-19 08:42 [facility] Indicated (missing) (missing) Result panel 3 MUDS CUTOFF CONCENTRATIONS 2024-12-19 09:47 [facility] CUTOFF CONC BELOW: (missing) [facility] uses the PROFILE-[employer] Drugs of Abuse Test System. It detects drug classes at the following cutoff concentrations: AMP Amphetamine (d-Amphetamine) 500 ng/mL BAR Barbiturates (Butalbital) 200 ng/mL BZO Benzodiazepines (Nordiazepam) 150 ng/mL BUP Buprenorphine (Buprenorphine) 10 ng/mL RILEY Cocaine (Benzoylecgonine) 150 ng/mL MAMP Methamphetamine (d-Methamphetamine) 500 ng/mL MTD Methadone (Methadone) 200 ng/mL OPI Opiates (Morphine) 100 ng/mL OXY Oxycodone (Oxycodone) 100 ng/mL PCP Phencyclidine (Phencyclidine) 25 ng/mL BUP Buprenorphine (Buprenorphine) 10 ng/mL THC Cannabinoids ([id number]) 50 ng/mL TCA Tricyclic Antidepressants (Desipramine) 300 ng/mL All drug screen results are unconfirmed. Results are to be used for medical (i.e. treatment) purposes only. Unconfirmed screening results must not be used for non-medical purposes (e.g., employment testing, legal testing). AMPHETAMINE SCREEN,URINE 2024-12-19 09:47 [facility] NEGATIVE (missing) (missing) BARBITURATE SCREEN,UR 2024-12-19 09:47 [facility] NEGATIVE (missing) (missing) BENZODIAZEPINES SCREEN, URINE 2024-12-19 09:47 [facility] NEGATIVE (missing) (missing) BUPRENORPHINE SCREEN, URINE 2024-12-19 09:47 [facility] NEGATIVE (missing) (missing) COCAINE SCREEN URINE 2024-12-19 09:47 [facility] NEGATIVE (missing) (missing) METHADONE SCREEN, URINE 2024-12-19 09:47 [facility] NEGATIVE (missing) (missing) METHAMPHETAMINES SCREEN, URINE 2024-12-19 09:47 [facility] NEGATIVE (missing) (missing) PHENCYCLIDINE SCREEN, URINE 2024-12-19 09:47 [facility] NEGATIVE (missing) (missing) THC CANNABINOID SCREEN, URINE 2024-12-19 09:47 [facility] NEGATIVE (missing) (missing) TRICYCLIC ANTIDEPRESSANT,URI NE 2024-12-19 09:47 [facility] NEGATIVE (missing) (missing) FENTANYL SCREEN, URINE 2024-12-19 09:47 [facility] Negative (missing) [facility] L ZI Fentanyl (Q) Enzyme Immunoassay. RESULT INTERPRETATION: This assay qualitatively detects norfentanyl in urine which is the major metabolite of fentanyl. A result greater than or equal to 5 ng/mL is considered presumptively positive for fentanyl exposure. CLINICAL SIGNIFICANCE: Presumptive positive results indicate norfentanyl concentrations above the assay cutoff. Due to possible cross-reactivity and potential interference, confirmatory testing by a definitive method (e.g., LC-MS/MS) is recommended for positive or unexpected findings. LIMITATIONS: This test is intended for qualitative screening and is unconfirmed. Concentrations below 5 ng/mL may not be reliably detected. False positives and false negatives are possible. Results are to be used for medical purposes only and can't be used for non-medical or legal purposes. OPIATE SCREEN, URINE 2024-12-19 09:47 [facility] POSITIVE (missing) (missing) OXYCODONE SCREEN, URINE 2024-12-19 09:47 [facility] POSITIVE (missing) (missing) Result panel 4 ETOH - ETHANOL 2024-12-19 21:20 [facility] < 10.0 mg/dl Blood Alcohol Levels Level Sporadic Drinkers Chronic drinkers 100 mg/dL Legally intoxicated* Minimal signs 200-250 mg/dL Alertness lost, Effort needed to becoming lethargic maintain emotional and motor control 300-350 mg/dL Stupor to coma Drowsy and slow >500 mg/dL Possible Coma *The legal definition of intoxication varies. This assy is for medical decision making only. As of September 2022 testing method has changed, this may include reference ranges. ACETAMINOPHEN 2024-12-19 21:20 [facility] 0.7 ug/ml Acetaminophen Therap eutic concentration 10-30 ug/mLHepatotoxicity concentrations - >150 ug/mL at 4hr after ingestion >75 ug/mL at 8hr after ingestion >40 ug/mL at 12hr after ingestion As of September 2022 testing method has changed, this may include reference ranges. Result panel 5 NUCLEATED RED BLOOD CELLS AUTO 2024-12-20 04:37 [facility] 0.0 /100wbc (missing) BASOPHILS # (AUTO) 2024-12-20 04:37 [facility] 0.0 10 3/ul (missing) EOSINOPHILS # (AUTO) 2024-12-20 04:37 [facility] 0.0 10 3/ul (missing) NRBC ABSOLUTE COUNT (AUTO) 2024-12-20 04:37 [facility] 0.00 x10 3/ul (missing) CREATININE 2024-12-20 04:37 [facility] 0.8 mg/dl As of September 2022 testing method has changed, this may include reference ranges. MONOCYTES # (AUTO) 2024-12-20 04:37 [facility] 0.9 10 3/ul (missing) LYMPHOCYTES # (AUTO) 2024-12-20 04:[address] [facility] 1.0 10 3/ul (missing) WHITE BLOOD COUNT 2024-12-20 04:37 [facility] 10.5 x10 3/ul (missing) MEAN PLATELET VOLUME 2024-12-20 04:[address] [facility] 10.8 fl (missing) CHLORIDE 2024-12-20 04:[address] [facility] 102 mmol/l As of September 2022 testing method has changed, this may include reference ranges. RED CELL DISTRIBUTION WIDTH 2024-12-20 04:37 [facility] 12.7 % (mi ssing) HGB - HEMOGLOBIN 2024-12-20 04:37 [facility] 13.5 g /dl (missing) SODIUM 2024-12-20 04:37 [facility] 138 mmol/l (missing) ANION GAP 2024-12-20 04:37 [facility] 14.0 (missing ) (missing) GLUCOSE 2024-12-20 04:37 [facility] 144 mg/dl As of September 2022 testing method has changed, this may include reference ranges. PLT - PLATELET COUNT 2024-12-20 04:37 [facility] 161 10 3/ul (missing) BUN - BLOOD UREA NITROGEN 2024-12-20 04:37 [facility] 21 mg/dl As of Sep testing method has changed, this may include reference ranges. CARBON DIOXIDE - CO2 2024-12-20 04:37 [facility] 22 mmol/l As of September 2022 testing method has changed, this may include reference ranges. POTASSIUM 2024-12-20 04:37 [facility] 3.8 mmol/l As of September 2022 testing method has changed, this may include reference ranges. RED BLOOD COUNT 2024-12-20 04:37 [facility] 3.99 10 6/ul (missing) MEAN CORPUSCULAR HEMOGLOBIN 2024-12-20 04:37 [facility] 33.8 pg (missing) MEAN CORPUSCULAR HGB CONC 2024-12-20 04:37 [facility] 34.0 g/dl (missing) HCT - HEMATOCRIT 2024-12-20 04:37 [facility] 39.7 % (missing) GFR - MDRD 2024-12-20 04:37 [facility] 70 (ivonne ngo) The IDMS-traceable MDRD Study Equation has been validated extensively in and populations between the ages of 18 and 70 with impaired kidney function (eGFR < 60 mL/min/1.73m2) and has shown good performance for patients with all common causes of kidney disease. Although this equation has not been validated for patients older than 70, an MDRD-derived eGFR may still be a useful tool for providers caring for patients older than 70. References: http://www.nkdep.n ih.gov/lab-evaluat ion/gfr/creatinine -stand ardization, last updated May 2011. NEUTROPHILS # (AUTO) 2024-12-20 04:37 [facility] 8.5 10 3/ul (missing) CALCIUM 2024-12-20 04:37 [facility] 9.4 mg/dl As of September 2022 testing method has changed, this may include reference ranges. MEAN CORPUSCULAR VOLUME 2024-12-20 04:37 [facility] 99.5 fl (missing) Result panel 6 D-DIMER 2024-12-20 15:45 [facility] > 1050.0 ng/ml D-Dimer results correspond to ng/mL of d-Dimer Units (D-DU) A cutoff of <230 ng/mL has been established for the negative predictive value for deep venous thrombosis (DVT) and pulmonary embolism (PE). (FDA approved). D-Dimer assay results should be used in conjunction with a clinical pretest probability (PTP) assessment model to exclude venous thromboembolism (VTE) in patient suspected of deep venous thrombosis (DVT) and pulmonary embolism (PE). (revised 01/26/14) NUCLEATED RED BLOOD CELLS AUTO 2024-12-20 15:45 [facility] 0.0 /100wbc (missing) BASOPHILS # (AUTO) 2024-12-20 15:45 [facility] 0.0 10 3/ul (missing) EOSINOPHILS # (AUTO) 2024-12-20 15:45 [facility] 0.0 10 3/ul (missing) NRBC ABSOLUTE COUNT (AUTO) 2024-12-20 15:45 [facility] 0.00 x10 3/ul (missing) CREATININE 2024-12-20 15:45 [facility] 0.7 mg/dl As of September 2022 testing method has changed, this may include reference ranges. MONOCYTES # (AUTO) 2024-12-20 15:45 [facility] 1.1 10 3/ul (missing) BILIRUBIN,TOTAL 2024-12-20 15:45 [facility] 1.1 mg/dl As of September 2022 testing method has changed, this may include reference ranges. ALBUMIN/GLOBULIN RATIO 2024-12-20 15:45 [facility] 1.5 (missing) (missing) LYMPHOCYTES # (AUTO) 2024-12-20 15:45 [facility] 1.7 10 3/ul (missing) MEAN CORPUSCULAR VOLUME 2024-12-20 15:45 [facility] 100.5 fl (missing) CHLORIDE 2024-12-20 15:45 [facility] 104 mmol/l As of September 2022 testing method has changed, this may include reference ranges. WHITE BLOOD COUNT 2024-12-20 15:45 [facility] 11.3 x10 3/ul (missing) MEAN PLATELET VOLUME 2024-12-20 15:45 [facility] 11.6 fl (missing) ANION GAP 2024-12-20 15:45 [facility] 12.0 (missing) (missing) RED CELL DISTRIBUTION WIDTH 2024-12-20 15:45 [facility] 13.1 % (missing) HGB - HEMOGLOBIN 2024-12-20 15:45 [facility] 13.3 g/dl (missing) SODIUM 2024-12-20 15:45 [facility] 138 mmol/l (missing) GLUCOSE 2024-12-20 15:45 [facility] 159 mg/dl As of September 2022 testing method has changed, this may include reference ranges. BUN - BLOOD UREA NITROGEN 2024-12-20 15:45 [facility] 17 mg/dl As of September 2022 testing method has changed, this may include reference ranges. PLT - PLATELET COUNT 2024-12-20 15:45 [facility] 175 10 3/ul (missing) GLOBULIN 2024-12-20 15:45 [facility] 2.5 g/dl (missing) CARBON DIOXIDE - CO2 2024-12-20 15:45 [facility] 22 mmol/l As of September 2022 testing method has changed, this may include reference ranges. ALT ALANINE AMINOTRANSFERASE 2024-12-20 15:45 [facility] 26 iu/l As of September 2022 testing method has changed, this may include reference ranges. POTASSIUM 2024-12-20 15:45 [facility] 3.7 mmol/l As of September 2022 testing method has changed, this may include reference ranges. ALBUMIN 2024-12-20 15:45 [facility] 3.8 g/dl As of September 2022 testing method has changed, this may include reference ranges. RED BLOOD COUNT 2024-12-20 15:45 [facility] 3.98 10 6/ul (missing) MEAN CORPUSCULAR HGB CONC 2024-12-20 15:45 [facility] 33.3 g/dl (missing) MEAN CORPUSCULAR HEMOGLOBIN 2024-12-20 15:45 [facility] 33.4 pg (missing) AST ASPARTATE AMINOTRANSFERASE 2024-12-20 15:45 [facility] 38 iu/l As of September 2022 testing method has changed, this may include reference ranges. HCT - HEMATOCRIT 2024-12-20 15:45 [facility] 40.0 % (missing) TROPONIN I HIGH SENSITIVITY 2024-12-20 15:45 [facility] 4696.6 ng/l Critical result TNIHS 4696.6 pg/mL called to and read back by RHETT Rivera RN MS at 20-Dec-2024 17:35 by _[email or web address]. A HIGH SENSITIVITY TROPONIN result of >= 14.9 ng/L for females is considered POSITIVE. A HIGH SENSITIVITY TROPONIN result of >= 19.8 ng/L for males is considered POSITIVE. A HIGH SENSITIVITY TROPONIN result of >= 17.9 ng/L for unspecified is considered POSITIVE. ALKALINE PHOSPHATASE 2024-12-20 15:45 [facility] 48 iu/l As of September 2022 testing method has changed, this may include reference ranges. TOTAL PROTEIN 2024-12-20 15:45 [facility] 6.3 g/dl As of September 2022 testing method has changed, this may include reference ranges. NEUTROPHILS # (AUTO) 2024-12-20 15:45 [facility] 8.5 10 3/ul (missing) GFR - MDRD 2024-12-20 15:45 [facility] 82 (missing) The IDMS-traceable MDRD Study Equation has been validated extensively in and populations between the ages of 18 and 70 with impaired kidney function (eGFR < 60 mL/min/1.73m2) and has shown good performance for patients with all common causes of kidney disease. Although this equation has not been validated for patients older than 70, an MDRD-derived eGFR may still be a useful tool for providers caring for patients older than 70. References: http://www.nkdep.ni h.gov/lab-evaluatio n/gfr/creatinine-st and ardization, last updated May 2011. CALCIUM 2024-12-20 15:45 [facility] 9.2 mg/dl As of September 2022 testing method has changed, this may include reference ranges. Result panel 7 CULTURE, BLOOD #1 2024-12-20 18:40 [facility] NG1D NO GROWTH AFTER 1 DAY (missing) (missing) CULTURE, BLOOD #1 2024-12-20 18:40 [facility] NG2D NO GROWTH AFTER 2 DAYS (missing) (missing) CULTURE, BLOOD #1 2024-12-20 18:40 [facility] NG5D NO GROWTH AFTER 5 DAYS (missing) (missing) Result panel 8 CULTURE, BLOOD #2 2024-12-20 18:48 [facility] NG1D NO GROWTH AFTER 1 DAY (missing) (missing) CULTURE, BLOOD #2 2024-12-20 18:48 [facility] NG2D NO GROWTH AFTER 2 DAYS (missing) (missing) CULTURE, BLOOD #2 2024-12-20 18:48 [facility] NG5D NO GROWTH AFTER 5 DAYS (missing) (missing) Social History date description facility
== END 2024-12-26 20:26 | disposition expired | DRG 917 ==
LOC: MS2 03:28 → ED 03:28 → MS2 17:47
PROVIDERS: ADMIT Nurse Practitioner Acute Care; ATTEND Nurse Practitioner Acute Care